=== PATIENT | female | born 1955 | race Caucasian/White ===

== ENCOUNTER 2020-06-06 14:48 | Emergency (ER) | payer OTHER, SELFPAY ==
[2020-06-06 15:01] VITALS: BP 220/80; PULSE 87; RESP 16; TEMP 36.9; O2SAT 98; BMI 26.6
[2020-06-06 15:50] LABS: MANUAL DIFF FLAG NO
[2020-06-06 15:53] LABS: Basophils Absolute Auto 0.1 X10*3/uL (0.0-0.2); Basophils Percent Auto 0.7 % (0-2); Eosinophils Absolute Auto 0.1 X10*3/uL (0.0-0.4); Eosinophils Percent Auto 1.1 % (0-4); Hematocrit 41.3 % (37-47); Hemoglobin 13.8 g/dl (12.0-16.0); Imm Gran Abs Auto 0.02 X10*3/uL (0.00-0.03); Imm Gran Pct Auto 0.2 % (0.0-0.4); Lymphocytes Absolute Auto 1.7 X10*3/uL (1.2-4.9); Lymphocytes Percent Auto 16.8 % (20-40); Mean Corpuscular HGB Conc 33.4 g/dl (31.0-35.0); Mean Corpuscular Hemoglobin 28.5 pg (27.0-33.0); Mean Corpuscular Volume 85.3 fL (80-98); Mean Platelet Volume 10.9 fL (9.4-12.3); Monocytes Absolute Auto 0.9 X10*3/uL (0.1-1.2); Monocytes Percent Auto 9.1 % (2-11); Neutrophils Absolute Auto 7.1 X10*3/uL (2.0-8.3); Neutrophils Percent Auto 72.1 % (45-73); Platelet Count 231 X10*3/uL (160-400); Red Blood Count 4.84 X10*6/uL (4.20-5.50); Red Cell Distribution Width 12.2 % (11.0-16.0); White Blood Count 9.8 X10*3/uL (4.8-10.8)
[2020-06-06 15:58] LABS: Glucose Urine UA NEG (NEG); Leukocyte Esterase Urine TRACE (NEG); Nitrite Urine NEG (NEG); PH 5.5 (5.0-8.0); Specific Gravity - Urine <= 1.005 (1.005-1.025); UACC Culture Trigger YES; Urine Blood NEG (NEG); Urine Ketones NEG (NEG); Urine Protein NEG (NEG-TRACE)
[2020-06-06 16:01] LABS: Appearance Urine CLEAR; Color Urine YELLOW
[2020-06-06 16:09] LABS: Bacteria Urine TRACE /LPF; RBC Urine 0 /HPF (0); Squamous Epithelial Cell Urine 1+ /LPF
--- NOTE | 2020-06-06 16:16 | ED_ITS ---
HPI - Weakness General Chief complaint: Weakness Stated complaint: HEADACHE Time Seen by Provider: 06/06/20 16:16 Source: patient Mode of arrival: ambulatory Limitations: no limitations History of Present Illness HPI Narrative: Patient with history of hypertension and anxiety/depression on Paxil 10 mg daily unable to sleep for last 2 weeks sleeping only for 3 4 hours has long-time in going to bed and waking up early in the morning and during the daytime been feeling foggy unable to focus. Feels depressed. Her son is staying with her for last 2 weeks but patient a lot of stress. Denies any nausea vomiting diarrhea no focal headache unable to focus. Denies any chest pain or shortness of breath abdominal pain feel need some medication to relax and sleep no urinary complaints Related Data Previous Rx's Medication Instructions Recorded lorazepam [Ativan] 1 mg PO BEDTIME PRN #14 tab 06/06/20 Allergies Allergy/AdvReac Type Severity Reaction Status Date / Time Penicillins AdvReac Rash Verified 06/06/20 15:06 Review of Systems Review of Systems: Constitutional : No Weight loss, No Fever, No Chills ENT/Mouth : No sore throat, No Rhinorrhea Eyes: No Eye Pain, No Swelling Cardiovascular : No Chest Pain, no palpitations Respiratory : No Cough, No Sputum, no shortness of breath Gastrointestinal : no Nausea, No Vomiting, No Diarrhea, No abdominal Pain, no black stools Genitourinary : No Dysuria, No Urinary Frequency Musculoskeletal : No joint pain, No Myalgias, No Joint Swelling Skin : No Skin Lesions, No rash Neuro : +Weakness, No Numbness, No Dizziness, No Headache Psych : No Anxiety/Panic, No Depression Heme/Lymph: No Bruising, No Lymphadenopathy Endocrine : No Polyuria, No Polydipsia All other systems reviewed and are negative [facility] Past Medical History Medical History Anxiety Gum disease HTN (hypertension) Mass of breast Social History Social History Advance Directives: No Advance Directives Information Provided: No Physical Exam Vital Signs: Vital Signs: Last Vital Signs Temp 98.4 F 06/06/20 15:01 Pulse 76 06/06/20 16:37 Resp 16 06/06/20 16:37 BP 162/75 H 06/06/20 16:37 Pulse Ox 97 06/06/20 16:37 Body Mass Index 26.6 Appearance: Alert. Oriented X3. No acute distress. Eyes: Pupils equal, round and reactive to light. ENT: Pharynx normal. Neck: Normal inspection. Neck supple. CVS: Normal heart rate and rhythm. Pulses normal. Respiratory: No respiratory distress. Breath sounds normal. Abdomen: Soft and nontender. Bowel sounds are present, no mass palpable, no CVA tenderness Skin: Skin warm and dry. Normal skin color. Normal skin turgor. Extremities: No lower extremity edema. Neuro: Oriented X 3. No motor deficit. No sensory deficit. MDM - Weakness MDM Narrative Medical decision making narrative: Patient with multiple complaints increased anxiety and depression able to sleep for last few weeks labs are stable clinically from the lack of sleep she is not able to focus during daytime pills give her short course of Ativan advised to follow-up with PCP /psychiatrist Lab Data Attestation: I reviewed the patient's lab results. Result diagrams: 06/06/20 15:42 06/06/20 15:42 Labs: Lab Results 06/06/20 06/06/20 06/06/20 Range/Units 15:25 15:42 15:42 WBC 9.8 (4.8-10.8) X10*3/uL RBC 4.84 (4.20-5.50) X10*6/uL Hgb 13.8 (12.0-16.0) g/dl Hct 41.3 (37-47) % MCV 85.3 (80-98) fL MCH 28.5 (27.0-33.0) pg MCHC 33.4 (31.0-35.0) g/dl RDW 12.2 (11.0-16.0) % Plt Count 231 (160-400) X10*3/uL MPV 10.9 (9.4-12.3) fL Immature Gran % (Auto) 0.2 (0.0-0.4) % Neut % (Auto) 72.1 (45-73) % Lymph % (Auto) 16.8 L (20-40) % [place] % (Auto) 9.1 (2-11) % Eos % (Auto) 1.1 (0-4) % Baso % (Auto) 0.7 (0-2) % Lymph # (Auto) 1.7 (1.2-4.9) X10*3/uL [place] # (Auto) 0.9 (0.1-1.2) X10*3/uL Eos # (Auto) 0.1 (0.0-0.4) X10*3/uL Baso # (Auto) 0.1 (0.0-0.2) X10*3/uL Abs Immat Gran (auto) 0.02 (0.00-0.03) X10*3/uL Absolute Neuts (auto) 7.1 (2.0-8.3) X10*3/uL Absolute Nucleated RBC 0.000 (0.0-0.012) X10*3/uL Nucleated RBC % (auto) 0.0 (0.0-0.2) /100WBC Hold Purple Top SEE NOTE Hold Blue Top Sodium (135-145) mmol/L Potassium (3.3-5.1) mmol/L Chloride (96-108) mmol/L Carbon Dioxide (22-29) mmol/L Anion Gap (12-20) BUN (9-16) mg/dL Creatinine (0.5-1.4) mg/dL Estim Creat Clear Calc Estimated GFR Random Glucose (60-115) mg/dL Calcium (8.4-10.2) mg/dL Total Bilirubin (0.0-1.0) mg/dL AST (5-31) U/L ALT (0-31) U/L Alkaline Phosphatase (39-117) U/L Total Protein (6.5-8.0) g/dL Albumin (3.5-5.0) g/dL Urine Color YELLOW Urine Appearance CLEAR Urine pH 5.5 (5.0-8.0) Ur Specific [place] <= 1.005 (1.005-1.025) Urine Protein NEG (NEG-TRACE) MG/DL Urine Glucose (UA) NEG (NEG) MG/DL Urine Ketones NEG (NEG) MG/DL Urine Blood NEG (NEG) Urine Nitrite NEG (NEG) Ur Leukocyte Esterase TRACE H (NEG) Urine RBC 0 (0) /HPF Urine WBC 1-4 (0-4) /HPF Ur Squamous Epith Cells 1+ /LPF Urine Bacteria TRACE /LPF 06/06/20 06/06/20 Range/Units 15:42 15:42 WBC (4.8-10.8) X10*3/uL RBC (4.20-5.50) X10*6/uL Hgb (12.0-16.0) g/dl Hct (37-47) % MCV (80-98) fL MCH (27.0-33.0) pg MCHC (31.0-35.0) g/dl RDW (11.0-16.0) % Plt Count (160-400) X10*3/uL MPV (9.4-12.3) fL Immature Gran % (Auto) (0.0-0.4) % Neut % (Auto) (45-73) % Lymph % (Auto) (20-40) % [place] % (Auto) (2-11) % Eos % (Auto) (0-4) % Baso % (Auto) (0-2) % Lymph # (Auto) (1.2-4.9) X10*3/uL [place] # (Auto) (0.1-1.2) X10*3/uL Eos # (Auto) (0.0-0.4) X10*3/uL Baso # (Auto) (0.0-0.2) X10*3/uL Abs Immat Gran (auto) (0.00-0.03) X10*3/uL Absolute Neuts (auto) (2.0-8.3) X10*3/uL Absolute Nucleated RBC (0.0-0.012) X10*3/uL Nucleated RBC % (auto) (0.0-0.2) /100WBC Hold Purple Top Hold Blue Top SEE NOTE Sodium 142 (135-145) mmol/L Potassium 4.0 (3.3-5.1) mmol/L Chloride 105 (96-108) mmol/L Carbon Dioxide 29 (22-29) mmol/L Anion Gap 12 (12-20) BUN 13 (9-16) mg/dL Creatinine 0.65 (0.5-1.4) mg/dL Estim Creat Clear Calc 94.8 Estimated GFR > 60 Random Glucose 113 (60-115) mg/dL Calcium 9.2 (8.4-10.2) mg/dL Total Bilirubin 0.2 (0.0-1.0) mg/dL AST 16 (5-31) U/L ALT 18 (0-31) U/L Alkaline Phosphatase 79 (39-117) U/L Total Protein 6.9 (6.5-8.0) g/dL Albumin 4.3 (3.5-5.0) g/dL Urine Color Urine Appearance Urine pH (5.0-8.0) Ur Specific [place] (1.005-1.025) Urine Protein (NEG-TRACE) MG/DL Urine Glucose (UA) (NEG) MG/DL Urine Ketones (NEG) MG/DL Urine Blood (NEG) Urine Nitrite (NEG) Ur Leukocyte Esterase (NEG) Urine RBC (0) /HPF Urine WBC (0-4) /HPF Ur Squamous Epith Cells /LPF Urine Bacteria /LPF Discharge Plan Discharge Clinical Impression: Anxiety Patient Disposition: Home, Self-Care Instructions: Anxiety (ED) Additional Instructions: rest at home take ativan as needed and anxiety follow up with pcp for further evaluation Prescriptions: New lorazepam [Ativan] 1 mg tablet 1 mg PO BEDTIME PRN (Reason: anxiety/sleep) Qty: 14 RF: 0
[2020-06-06 16:17] LABS: Alanine Aminotransferase 18 U/L (0-31); Albumin Level 4.3 g/dL (3.5-5.0); Alkaline Phosphatase 79 U/L (39-117); Anion Gap 12 (12-20); Aspartate Amino Transferase 16 U/L (5-31); Bilirubin Total 0.2 mg/dL (0.0-1.0); Blood Urea Nitrogen 13 mg/dL (9-16); Calcium 9.2 mg/dL (8.4-10.2); Carbon Dioxide 29 mmol/L (22-29); Chloride 105 mmol/L (96-108); Creatinine Clr Calc Pharmacy 94.8; Estimated Glomerular Filt Rate > 60; Glucose Random 113 mg/dL (60-115); Sodium 142 mmol/L (135-145); Total Protein 6.9 g/dL (6.5-8.0)
[2020-06-06 16:37] VITALS: BP 162/75; PULSE 76; RESP 16; O2SAT 97
== END 2020-06-06 17:08 | disposition home or self-care (01) ==
PROVIDERS: Emergency Provider Internal Medicine; PCP Internal Medicine
DX: R51.9 Headache, unspecified (principal); I10 Essential (primary) hypertension; F41.1 Generalized anxiety disorder; F43.0 Acute stress reaction; Z79.899 Other long term (current) drug therapy
CPT/HCPCS: 36415; 80053; 81001; 81003; 85025; 87086; 99283

== ENCOUNTER 2020-06-09 14:25 | Emergency (ER) | payer OTHER, SELFPAY ==
--- NOTE | ~2020-06-09 | CT_ITS ---
EXAMINATION: CT HEAD WITHOUT CONTRAST CLINICAL INFORMATION: Headache, frog venous with difficulty concentrating. Lightheadedness. COMPARISON: None TECHNIQUE: Contiguous axial imaging was performed from the skull base to vertex without intravenous administration of contrast. This CT examination was performed using dose optimization techniques as appropriate, variously including the following: *Automated exposure control *Adjustment of mA and/or kV according to patient size (this includes techniques or standardized protocols for targeted exams where dose is matched to indication/reason for exam; i.e. extremities or head) *Use of iterative reconstruction technique DLP: 596 mGy-cm FINDINGS: There is no evidence of acute intracranial hemorrhage or territorial infarction. No abnormal mass effect or midline shift is seen. [place] to white matter differentiation is well preserved. No extra-axial fluid collections are identified. The ventricles are normal in size. There is no abnormal attenuation within the brain parenchyma. The osseous structures and soft tissues are normal. The mastoid air cells and visualized portions of the paranasal sinuses are well aerated. CT/CT head/brain wo con IMPRESSION: No acute intracranial process seen.
--- NOTE | ~2020-06-09 | XR_ITS ---
EXAMINATION: XR CHEST CLINICAL INFORMATION: Hypertension and weakness COMPARISON: None TECHNIQUE: Frontal view of the chest was obtained. FINDINGS: No significant abnormality is noted involving the heart, lungs or mediastinum. Degenerative changes are present in the spine and some calcification is present in the right supraspinatus tendon. XR/XR chest 1V IMPRESSION: No acute intrathoracic disease
[2020-06-09 14:33] VITALS: BP 188/86; PULSE 94; O2SAT 97
[2020-06-09 15:30] VITALS: BP 218/98; PULSE 76; RESP 16; TEMP 36.8; O2SAT 97; BMI 27.4
[2020-06-09 16:17] LABS: Glucose Urine UA NEG (NEG); Leukocyte Esterase Urine 2+ (NEG); Nitrite Urine NEG (NEG); PH 6.5 (5.0-8.0); Specific Gravity - Urine <= 1.005 (1.005-1.025); UACC Culture Trigger YES; Urine Blood NEG (NEG); Urine Ketones NEG (NEG); Urine Protein NEG (NEG-TRACE)
[2020-06-09 16:19] LABS: Appearance Urine CLEAR; Color Urine STRAW
[2020-06-09 16:22] LABS: MANUAL DIFF FLAG NO
[2020-06-09 16:23] LABS: Basophils Absolute Auto 0.1 X10*3/uL (0.0-0.2); Basophils Percent Auto 0.7 % (0-2); Eosinophils Absolute Auto 0.1 X10*3/uL (0.0-0.4); Eosinophils Percent Auto 0.9 % (0-4); Hematocrit 41.7 % (37-47); Hemoglobin 13.9 g/dl (12.0-16.0); Imm Gran Abs Auto 0.04 X10*3/uL (0.00-0.03); Imm Gran Pct Auto 0.4 % (0.0-0.4); Lymphocytes Absolute Auto 1.8 X10*3/uL (1.2-4.9); Lymphocytes Percent Auto 16.5 % (20-40); Mean Corpuscular HGB Conc 33.3 g/dl (31.0-35.0); Mean Corpuscular Hemoglobin 28.5 pg (27.0-33.0); Mean Corpuscular Volume 85.5 fL (80-98); Mean Platelet Volume 10.8 fL (9.4-12.3); Monocytes Absolute Auto 0.9 X10*3/uL (0.1-1.2); Monocytes Percent Auto 8.6 % (2-11); Neutrophils Absolute Auto 7.8 X10*3/uL (2.0-8.3); Neutrophils Percent Auto 72.9 % (45-73); Platelet Count 235 X10*3/uL (160-400); Red Blood Count 4.88 X10*6/uL (4.20-5.50); Red Cell Distribution Width 12.3 % (11.0-16.0); White Blood Count 10.8 X10*3/uL (4.8-10.8)
[2020-06-09 16:43] LABS: Bacteria Urine 1+ /LPF; RBC Urine 0 /HPF (0); Squamous Epithelial Cell Urine 2+ /LPF; WBC Urine 30-49 /HPF (0-4)
[2020-06-09 17:00] LABS: Anion Gap 12 (12-20); Blood Urea Nitrogen 11 mg/dL (9-16); Calcium 9.4 mg/dL (8.4-10.2); Carbon Dioxide 30 mmol/L (22-29); Chloride 103 mmol/L (96-108); Creatinine Clr Calc Pharmacy 88.7; Estimated Glomerular Filt Rate > 60; Glucose Random 97 mg/dL (60-115); Potassium 4.5 mmol/L (3.3-5.1); Sodium 140 mmol/L (135-145)
--- NOTE | 2020-06-09 18:35 | ECG_ITS ---
Test Reason : DIZZINESS Blood Pressure : / mmHG Vent. Rate : 068 BPM Atrial Rate : 068 BPM P-R Int : 144 ms QRS Dur : 088 ms QT Int : 390 ms P-R-T Axes : 067 009 047 degrees QTc Int : 414 ms Normal sinus rhythm Normal ECG When compared with ECG of 29-JAN-2006 13:11, No significant change was found Referred By: Blaire Bahena Electronically Signed By:JIM PACK MD
[2020-06-09 18:58] LABS: Alanine Aminotransferase 19 U/L (0-31); Albumin Level 4.3 g/dL (3.5-5.0); Alkaline Phosphatase 72 U/L (39-117); Aspartate Amino Transferase 19 U/L (5-31); Bilirubin Direct < 0.2 mg/dL (0.0-0.5); Bilirubin Total 0.3 mg/dL (0.0-1.0); Magnesium 2.6 mg/dL (1.6-2.6); Total Protein 7.1 g/dL (6.5-8.0)
[2020-06-09 19:13] LABS: Troponin-I High Sensitivity 3.9 ng/L (<3.5-17.0)
[2020-06-09 20:00] VITALS: BP 160/85; PULSE 68; RESP 16; O2SAT 98
[2020-06-09] MEDS: 0.9 % Sodium Chloride 1,000 ML 999 ML IVCONT (20:15)
--- NOTE | 2020-06-09 20:21 | ED.GENADULT ---
HPI - General Adult General Chief complaint: General Medical Stated complaint: PERALTA,VÍCTOR ARM NUMBNESS SINCE WAKING UP,-STROKE SCALE Time Seen by Provider: 06/09/20 18:23 Source: patient Mode of arrival: ambulatory History of Present Illness HPI narrative: 64-year-old female with a past medical history of anxiety, gum disease, HTN, anxiety/depression on Paxil, presenting to the ED complaining of generalized head pressure/lightheadedness x5 weeks with difficulty concentrating, fatigue, insomnia, generalized paresthesias, intermittent CP/SOB. Was recently seen and treated in our ED for similar symptoms, prescribed Ativan, however reports made headache worse so only took 1 dose. Believes there is something wrong in brain. Denies vision change/loss, nausea/vomiting, abdominal pain, LE edema Onset (ago): week(s) Related Data Previous Rx's Medication Instructions Recorded lorazepam [Ativan] 1 mg PO BEDTIME PRN #14 tab 06/06/20 cefuroxime axetil 250 mg PO BID 7 Days #14 tab 06/09/20 Allergies Allergy/AdvReac Type Severity Reaction Status Date / Time Penicillins AdvReac Rash Verified 06/06/20 15:06 Review of Systems Review of Systems: Constitutional: No Fever, No Chills, No Night Sweats, + Fatigue, + Malaise ENT/Mouth: No Hearing loss, No sore throat, No Rhinorrhea, No Swallowing Difficulty Eyes: No Vision Changes Cardiovascular: +intermittent Chest Pain, +intermittent SOB, No Edema, No Palpitations Respiratory: No Cough, No Dyspnea Gastrointestinal: No Nausea, No Vomiting, No Diarrhea, No Constipation, No Abdominal pain Genitourinary: No Dysuria, No Hematuria, No Flank Pain Musculoskeletal: No joint pain, No Myalgias, No Joint Swelling Skin: No Skin Lesions, No rash Neuro: + Weakness, No Numbness, + Paresthesias, No Loss of Consciousness, + lightheadedness, + Headache Yes all other systems are reviewed and are negative Neurologic: Denies Abnormal speech present [facility] Past Medical History Attestation statement: The following information was validated with the patient. Medical History Anxiety Gum disease HTN (hypertension) Mass of breast Social History Social History Advance Directives: No Advance Directives Information Provided: Yes Physical Exam Vital Signs: Vital Signs: Last Vital Signs Temp 98.3 F 06/09/20 15:30 Pulse 82 06/09/20 20:53 Resp 16 06/09/20 20:00 BP 164/89 H 06/09/20 20:53 Pulse Ox 98 06/09/20 20:00 Body Mass Index 27.4 Const: General: cooperative, healthy appearing, comfortable, no acute distress and anxious Orientation/consciousness: patient oriented x3 Limitations: no limitations HENMT: Head: Yes normal to inspection and Yes atraumatic Ears: hearing grossly normal bilaterally General nose exam: Normal external nose present Face and sinus: Yes normal facial exam Eyes: General: appearance normal, both eyes and all related structures Pupils: Equal, round and reactive pupils present EOM: EOMs intact bilaterally Neck: Neck: Yes normal visual inspection and Yes no meningeal signs Resp: Effort & Inspection: normal respiratory effort Auscultation: clear to auscultation bilaterally, no rales, no rhonchi and no wheezes Cardio: Rate: regular rate Heart sounds: S1 normal heart sound present and S2 normal heart sound present GI: Inspection: Yes normal to inspection Palpation (GI): Soft to palpation, nontender, no guarding and not rigid Skin: Rashes: no rashes Wounds: no wounds Neuro: General: patient oriented x3, gait normal, tone normal, moves all extremities, no meningeal signs, no focal motor deficits and CN's II-XI intact bilaterally Cranial nerves: Yes Equal, round and reactive pupils present Cognition (Neuro): normal cognition Speech: No Abnormal speech present Gait exam (Neuro): Normal gait present Motor exam (neuro): 5/5 motor strength present throughout and Pronator motor function not present Coordination: [id number] test normal Extrem: General: Yes normal to inspection and Yes no pedal edema Course Course Course Narrative: -labs unremarkable including troponin -UA positive > first dose Ceftin given in the ED CT head/brain wo con IMPRESSION: No acute intracranial process seen XR chest 1V IMPRESSION: No acute intrathoracic disease -orthostatic vital signs negative >> results discussed with patient including worrisome signs and symptoms and strict return precautions. Patient was instructed to follow-up with her PCP. She verbalized understanding feel safe for discharge home Medical Decision Making [facility] Narrative Medical decision making narrative: 64-year-old female with a past medical history of anxiety, gum disease, HTN, anxiety/depression on Paxil, presenting to the ED complaining of generalized head pressure/lightheadedness x5 weeks with difficulty concentrating, fatigue, insomnia, generalized paresthesias, intermittent CP/SOB. On exam initially hypertensive, repeat BP improved without intervention, appears anxious, exam nonfocal. Rule out metabolic/infectious etiology vs intracranial process. Unlikely ICH due to duration of symptoms, r/o mass or ACS. Unlikely PE/pneumonia Plan: EKG, labs, UA, CXR, head CT Lab Data Result diagrams: 06/09/20 16:00 06/09/20 16:00 Labs: Lab Results 06/09/20 06/09/20 06/09/20 Range/Units 16:00 16:00 16:00 WBC 10.8 (4.8-10.8) X10*3/uL RBC 4.88 (4.20-5.50) X10*6/uL Hgb 13.9 (12.0-16.0) g/dl Hct 41.7 (37-47) % MCV 85.5 (80-98) fL MCH 28.5 (27.0-33.0) pg MCHC 33.3 (31.0-35.0) g/dl RDW 12.3 (11.0-16.0) % Plt Count 235 (160-400) X10*3/uL MPV 10.8 (9.4-12.3) fL Immature Gran % (Auto) 0.4 (0.0-0.4) % Neut % (Auto) 72.9 (45-73) % Lymph % (Auto) 16.5 L (20-40) % [place] % (Auto) 8.6 (2-11) % Eos % (Auto) 0.9 (0-4) % Baso % (Auto) 0.7 (0-2) % Lymph # (Auto) 1.8 (1.2-4.9) X10*3/uL [place] # (Auto) 0.9 (0.1-1.2) X10*3/uL Eos # (Auto) 0.1 (0.0-0.4) X10*3/uL Baso # (Auto) 0.1 (0.0-0.2) X10*3/uL Abs Immat Gran (auto) 0.04 H (0.00-0.03) X10*3/uL Absolute Neuts (auto) 7.8 (2.0-8.3) X10*3/uL Absolute Nucleated RBC 0.000 (0.0-0.012) X10*3/uL Nucleated RBC % (auto) 0.0 (0.0-0.2) /100WBC Hold Blue Top SEE NOTE Sodium 140 (135-145) mmol/L Potassium 4.5 (3.3-5.1) mmol/L Chloride 103 (96-108) mmol/L Carbon Dioxide 30 H (22-29) mmol/L Anion Gap 12 (12-20) BUN 11 (9-16) mg/dL Creatinine 0.68 (0.5-1.4) mg/dL Estim Creat Clear Calc 88.7 Estimated GFR > 60 Random Glucose 97 (60-115) mg/dL Calcium 9.4 (8.4-10.2) mg/dL Magnesium 2.6 (1.6-2.6) mg/dL Total Bilirubin 0.3 (0.0-1.0) mg/dL Direct Bilirubin < 0.2 (0.0-0.5) mg/dL AST 19 (5-31) U/L ALT 19 (0-31) U/L Alkaline Phosphatase 72 (39-117) U/L Troponin I High Sens (<3.5-17.0) ng/L Total Protein 7.1 (6.5-8.0) g/dL Albumin 4.3 (3.5-5.0) g/dL Urine Color Urine Appearance Urine pH (5.0-8.0) Ur Specific [place] (1.005-1.025) Urine Protein (NEG-TRACE) MG/DL Urine Glucose (UA) (NEG) MG/DL Urine Ketones (NEG) MG/DL Urine Blood (NEG) Urine Nitrite (NEG) Ur Leukocyte Esterase (NEG) Urine RBC (0) /HPF Urine WBC (0-4) /HPF Ur Squamous Epith Cells /LPF Urine Bacteria /LPF 06/09/20 06/09/20 Range/Units 16:00 16:02 WBC (4.8-10.8) X10*3/uL RBC (4.20-5.50) X10*6/uL Hgb (12.0-16.0) g/dl Hct (37-47) % MCV (80-98) fL MCH (27.0-33.0) pg MCHC (31.0-35.0) g/dl RDW (11.0-16.0) % Plt Count (160-400) X10*3/uL MPV (9.4-12.3) fL Immature Gran % (Auto) (0.0-0.4) % Neut % (Auto) (45-73) % Lymph % (Auto) (20-40) % [place] % (Auto) (2-11) % Eos % (Auto) (0-4) % Baso % (Auto) (0-2) % Lymph # (Auto) (1.2-4.9) X10*3/uL [place] # (Auto) (0.1-1.2) X10*3/uL Eos # (Auto) (0.0-0.4) X10*3/uL Baso # (Auto) (0.0-0.2) X10*3/uL Abs Immat Gran (auto) (0.00-0.03) X10*3/uL Absolute Neuts (auto) (2.0-8.3) X10*3/uL Absolute Nucleated RBC (0.0-0.012) X10*3/uL Nucleated RBC % (auto) (0.0-0.2) /100WBC Hold Blue Top Sodium (135-145) mmol/L Potassium (3.3-5.1) mmol/L Chloride (96-108) mmol/L Carbon Dioxide (22-29) mmol/L Anion Gap (12-20) BUN (9-16) mg/dL Creatinine (0.5-1.4) mg/dL Estim Creat Clear Calc Estimated GFR Random Glucose (60-115) mg/dL Calcium (8.4-10.2) mg/dL Magnesium (1.6-2.6) mg/dL Total Bilirubin (0.0-1.0) mg/dL Direct Bilirubin (0.0-0.5) mg/dL AST (5-31) U/L ALT (0-31) U/L Alkaline Phosphatase (39-117) U/L Troponin I High Sens 3.9 (<3.5-17.0) ng/L Total Protein (6.5-8.0) g/dL Albumin (3.5-5.0) g/dL Urine Color STRAW Urine Appearance CLEAR Urine pH 6.5 (5.0-8.0) Ur Specific [place] <= 1.005 (1.005-1.025) Urine Protein NEG (NEG-TRACE) MG/DL Urine Glucose (UA) NEG (NEG) MG/DL Urine Ketones NEG (NEG) MG/DL Urine Blood NEG (NEG) Urine Nitrite NEG (NEG) Ur Leukocyte Esterase 2+ H (NEG) Urine RBC 0 (0) /HPF Urine WBC 30-49 H (0-4) /HPF Ur Squamous Epith Cells 2+ /LPF Urine Bacteria 1+ /LPF Discharge Plan Discharge Clinical Impression: UTI (urinary tract infection), Headache, Weakness Instructions: Urinary Tract Infection in Older Adults (ED) Additional Instructions: Your blood work and imaging studies were reassuring today in the ED Your urine showed markers of infection, Ceftin is antibiotic, take as prescribed It is important that he follow up with her primary care doctor If her symptoms persist or worsen, become unbearable, you have constant worsen chest pain/shortness of breath, or weakness return to the ED Make sure staying hydrated at home Prescriptions: New cefuroxime axetil 250 mg tablet 250 mg PO BID 7 Days Qty: 14 RF: 0 No Action lorazepam [Ativan] 1 mg tablet 1 mg PO BEDTIME PRN (Reason: anxiety/sleep) Qty: 14 RF: 0 Referrals: Jessica Crawford MD [Primary Care Provider] - 2 days
[2020-06-09 20:53] VITALS: BP 151/79; BP 157/80; BP 164/89; PULSE 72; PULSE 74; PULSE 82
[2020-06-09 22:00] VITALS: RESP 16; O2SAT 99
== END 2020-06-09 22:17 | disposition home or self-care (01) ==
PROVIDERS: Physician Assistant; Emergency Provider Emergency Medicine; PCP Internal Medicine
DX: N39.0 Urinary tract infection, site not specified (principal); R51.9 Headache, unspecified; R53.1 Weakness; Z79.899 Other long term (current) drug therapy
CPT/HCPCS: 36415; 70450; 71045; 80048; 80076; 81001; 81003; 83735; 84484; 85025; 87086; 93005; 96360; 99284

== ENCOUNTER 2020-06-23 02:02 | Emergency (ER) | payer OTHER, SELFPAY ==
[2020-06-23] VITALS (11 sets, daily range): BP systolic 160–210; BP diastolic 72–93; PULSE 69–86; RESP 16–20; TEMP 36.4–37.1; O2SAT 96–99; BMI 26.9
--- NOTE | 2020-06-23 04:04 | PC.NURSE ---
Per Dr Field, pt reports SI without plan. Pt care plan is for labs for medical clearance then psych. lead burner made aware
[2020-06-23 04:35] LABS: MANUAL DIFF FLAG NO
--- NOTE | 2020-06-23 04:35 | PC.NURSE ---
Pt ambulated to bathroom with standby assist with slow, shuffling gait. Pt provided urine sample, sent to lab for processing. Pt labs also sent. Pt changed into behavioral health appropriate clothing. Tech at bedside for constant observation.
[2020-06-23 04:36] LABS: Basophils Absolute Auto 0.1 X10*3/uL (0.0-0.2); Basophils Percent Auto 0.7 % (0-2); Eosinophils Absolute Auto 0.1 X10*3/uL (0.0-0.4); Eosinophils Percent Auto 0.6 % (0-4); Hematocrit 44.6 % (37-47); Hemoglobin 14.9 g/dl (12.0-16.0); Imm Gran Abs Auto 0.03 X10*3/uL (0.00-0.03); Imm Gran Pct Auto 0.3 % (0.0-0.4); Lymphocytes Absolute Auto 1.7 X10*3/uL (1.2-4.9); Lymphocytes Percent Auto 15.5 % (20-40); Mean Corpuscular HGB Conc 33.4 g/dl (31.0-35.0); Mean Corpuscular Hemoglobin 28.7 pg (27.0-33.0); Mean Corpuscular Volume 85.8 fL (80-98); Mean Platelet Volume 10.7 fL (9.4-12.3); Monocytes Absolute Auto 0.8 X10*3/uL (0.1-1.2); Monocytes Percent Auto 6.9 % (2-11); Neutrophils Absolute Auto 8.6 X10*3/uL (2.0-8.3); Platelet Count 245 X10*3/uL (160-400); Red Cell Distribution Width 12.1 % (11.0-16.0); White Blood Count 11.3 X10*3/uL (4.8-10.8)
[2020-06-23 04:39] LABS: Glucose Urine UA NEG (NEG); Leukocyte Esterase Urine TRACE (NEG); Nitrite Urine NEG (NEG); PH 7.5 (5.0-8.0); UACC Culture Trigger YES; Urine Blood NEG (NEG); Urine Ketones NEG (NEG); Urine Protein NEG (NEG-TRACE)
[2020-06-23 04:40] LABS: Appearance Urine CLEAR; Color Urine YELLOW
[2020-06-23 04:50] LABS: Amorphous Sediment Urine 2+ /LPF; Bacteria Urine 1+ /LPF; Renal Epithelial Cells Urine 1+ /LPF; Squamous Epithelial Cell Urine 1+ /LPF
--- NOTE | 2020-06-23 05:02 | ED_ITS ---
HPI - General Adult General Chief complaint: General Medical Stated complaint: HIGH BLOOD PRESSURE Time Seen by Provider: 06/23/20 03:29 Source: patient Mode of arrival: ambulatory Limitations: no limitations History of Present Illness HPI narrative: 65-year-old female who presents emergency department for evaluation of depression, suicidal ideation, hypertension and headache. The patient states that her depression has been worse since her cat approximately 8 weeks prior to evaluation. She states that since her cat's , she has had thoughts that have come back from years ago. She states that she has been feeling very weak and sick. She is concerned that something is going to happen to her. She has been evaluated by her PCP who increased her Paxil from 10 mg daily to 20 mg a day. Patient states that she took this increased dose for only 1 day under gave her severe headache and she self redu lisa her dose back to 10 mg. She states that her doctor did convince her to take 15 mg once a day for the past 6 days. She states that since increasing this dose she has had headaches which she describes as a pressure-like sensation in her head she states that her depression is also gotten worse. She states that the headache is a pressure-like sensation which is intermittent, located the top of her head and is moderate to severe in intensity. The patient states this evening she felt unwell. She states that she was having suicidal thoughts of taking an overdose of sleeping pills. She also states that she wanted a ?the Lord to take her away . The patient states she has been compliant with her antihypertensive medication amlodipine 2.5 mg daily. In reviewing her record, she was seen here on 06/09/2020 with a similar headache and had a negative CT scan at that time. She was also seen in the emergency department for anxiety on 06/06/2020. Related Data Home Medications Medication Instructions Recorded Confirmed amlodipine 2.5 mg PO DAILY 06/23/20 06/23/20 aspirin [Aspirin Child] 81 mg PO DAILY 06/23/20 06/23/20 cholecalciferol (vitamin D3) 10 mcg PO DAILY 06/23/20 06/23/20 [Vitamin D3] paroxetine HCl [Paxil] 10 mg PO DAILY 06/23/20 06/23/20 Previous Rx's Medication Instructions Recorded lorazepam [Ativan] 1 mg PO BEDTIME PRN #14 tab 06/06/20 Allergies Allergy/AdvReac Type Severity Reaction Status Date / Time Penicillins AdvReac Rash Verified 06/23/20 03:59 Review of Systems Review of Systems: Yes all other systems are reviewed and are negative [facility] Past Medical History [facility] Narrative: The patient denies tobacco, alcohol and drug use. Source: unable to obtain Medical History (Updated 06/23/20 @ 02:06 by Vesta Altman) Anxiety Depression Gum disease HTN (hypertension) Mass of breast Social History Social History Alcohol intake: never Smoking Status: Never smoker Use of substances other than those prescribed or required for medical reasons: No Advance Directives: No Physical Exam Vital Signs: Vital Signs: Last Vital Signs Temp 98.7 F 06/23/20 02:03 Pulse 70 06/23/20 04:04 Resp 18 06/23/20 04:04 BP 180/80 H 06/23/20 04:04 Pulse Ox 99 06/23/20 04:04 Body Mass Index 26.9 Const: General: cooperative, no acute distress, alert and awake Orientation/consciousness: oriented to person and oriented to place Limitations: no limitations HENMT: Head: Yes normal to inspection, Yes normocephalic and Yes atraumatic Ears: external ears normal General nose exam: Normal external nose present Face and sinus: Yes normal facial exam Mouth: Normal oral and palatal mucosa present Throat: Yes posterior oropharynx normal Eyes: General: appearance normal, both eyes and all related structures Periorbital: periorbital findings normal Eyelids: Yes eyelids normal Conjunctivae: conjunctivae normal Sclerae: sclerae normal Corneas: corneas normal Pupils: Equal, round and reactive pupils present Direct Ophthalmoscopy: normal light reflex Neck: Neck: Yes normal visual inspection and Yes supple Lymphatic: no lymphadenopathy noted Chest: Chest palpation & inspection: normal inspection of the chest and normal palpation of entire chest wall Resp: Effort & Inspection: normal respiratory effort, abnormal respiratory pattern, no audible wheezes and no respiratory distress Auscultation: clear to auscultation bilaterally, no crackles, no rales, no rhonchi and no wheezes Cardio: Rate: regular rate Rhythm: regular rhythm Heart sounds: S1 normal heart sound present, S2 normal heart sound present and Murmur heart sound present GI: Inspection: No distended Palpation (GI): Soft to palpation, nontender, no guarding and No hepatosplenomegaly present Auscultation: normal bowel sounds : General: Yes no CVA tenderness Back/Spine/Pelvis: Back: no CVA tenderness Cervical Spine: normal cervical lordosis Thoracic/Lumbar Spine: thoracic and lumbar spine normal to inspection Skin: General skin exam: no rashes or lesions noted Lesions: no lesions Rashes: no rashes Wounds: no wounds Neuro: General: oriented to person and oriented to place Cranial nerves: Y es CN's II-XII intact bilaterally and Yes Equal, round and reactive pupils present Cognition (Neuro): normal cognition Motor exam (neuro): 5/5 motor strength present throughout Extrem: General: Yes normal to inspection, Yes full ROM, Yes no pedal edema and Yes no calf tenderness Psych: Appearance: grossly normal Mental Status: mental status grossly normal Speech and movement: Clear speech present Affect: Sad affect presen t Attitude: cooperative Thought process: Normal thought process present Thought content: Suicidality present, no homicidality and no delusions Course Course Course Narrative: 65-year-old female who presents emergency department for evaluation of headache, hypertension, depression and suicidal ideation. Patient's physical examination did reveal a slightly elevated high blood pressure otherwise her exam was unremarkable. The patient states that she has been having suicidal ideation with a plan overdosing on sleeping pills. I did order laboratory evaluation. She had a CT scan of the brain earlier this month for her headaches and I do not think that this needs to be repeated at this time. Laboratory evaluation revealed [place] [id number], unremarkable urinalysis and negative tox screen. Patient is medically cleared for crisis evaluation. Medical Decision Making Lab Data Result diagrams: 06/23/20 04:26 06/23/20 04:26 Labs: Lab Results 06/23/20 06/23/20 Range/Units 04:26 04:26 WBC 11.3 H (4.8-10.8) X10*3/uL RBC 5.20 (4.20-5.50) X10*6/uL Hgb 14.9 (12.0-16.0) g/dl Hct 44.6 (37-47) % MCV 85.8 (80-98) fL MCH 28.7 (27.0-33.0) pg MCHC 33.4 (31.0-35.0) g/dl RDW 12.1 (11.0-16.0) % Plt Count 245 (160-400) X10*3/uL MPV 10.7 (9.4-12.3) fL Immature Gran % (Auto) 0.3 (0.0-0.4) % Neut % (Auto) 76.0 H (45-73) % Lymph % (Auto) 15.5 L (20-40) % [place] % (Auto) 6.9 (2-11) % Eos % (Auto) 0.6 (0-4) % Baso % (Auto) 0.7 (0-2) % Lymph # (Auto) 1.7 (1.2-4.9) X10*3/uL [place] # (Auto) 0.8 (0.1-1.2) X10*3/uL Eos # (Auto) 0.1 (0.0-0.4) X10*3/uL Baso # (Auto) 0.1 (0.0-0.2) X10*3/uL Abs Immat Gran (auto) 0.03 (0.00-0.03) X10*3/uL Absolute Neuts (auto) 8.6 H (2.0-8.3) X10*3/uL Absolute Nucleated RBC 0.000 (0.0-0.012) X10*3/uL Nucleated RBC % (auto) 0.0 (0.0-0.2) /100WBC Urine Color YELLOW Urine Appearance CLEAR Urine pH 7.5 (5.0-8.0) Ur Specific [place] 1.010 (1.005-1.025) Urine Protein NEG (NEG-TRACE) MG/DL Urine Glucose (UA) NEG (NEG) MG/DL Urine Ketones NEG (NEG) MG/DL Urine Blood NEG (NEG) Urine Nitrite NEG (NEG) Ur Leukocyte Esterase TRACE H (NEG) Urine RBC 1-4 (0) /HPF Urine WBC 1-4 (0-4) /HPF Ur Squamous Epith Cells 1+ /LPF Ur Renal Epithelial Cell 1+ /LPF Amorphous Sediment 2+ /LPF Urine Bacteria 1+ /LPF Discharge Plan Discharge Prescriptions: No Action lorazepam [Ativan] 1 mg tablet 1 mg PO BEDTIME PRN (Reason: anxiety/sleep) Qty: 14 RF: 0 paroxetine HCl [Paxil] 10 mg Tablet 10 mg PO DAILY RF: 0 amlodipine 2.5 mg Tablet 2.5 mg PO DAILY RF: 0 aspirin [Aspirin Child] 81 mg Tablet,Chewable 81 mg PO DAILY RF: 0 cholecalciferol (vitamin D3) [Vitamin D3] 10 mcg (400 unit) Tablet 10 mcg PO DAILY RF: 0
[2020-06-23 05:08] LABS: Alanine Aminotransferase 20 U/L (0-31); Albumin Level 4.4 g/dL (3.5-5.0); Alkaline Phosphatase 79 U/L (39-117); Anion Gap 12 (12-20); Aspartate Amino Transferase 15 U/L (5-31); Bilirubin Total 0.7 mg/dL (0.0-1.0); Blood Urea Nitrogen 8 mg/dL (9-16); Calcium 9.6 mg/dL (8.4-10.2); Carbon Dioxide 31 mmol/L (22-29); Chloride 100 mmol/L (96-108); Creatinine Clr Calc Pharmacy 85.6; Estimated Glomerular Filt Rate > 60; Glucose Random 109 mg/dL (60-115); Potassium 4.2 mmol/L (3.3-5.1); Sodium 139 mmol/L (135-145); Total Protein 7.3 g/dL (6.5-8.0)
[2020-06-23 05:09] LABS: Amphetamine Screen Urine Not Detected (Not Detect); Barbiturates, Urine Not Detected (Not Detect); Benzodiazepines Screen Urine Not Detected (Not Detect); Cannabinoid Screen Urine Not Detected (Not Detect); Cocaine Screen Urine Not Detected (Not Detect); Opiate Screen Urine Not Detected (Not Detect); Phencyclidine Screen Urine Not Detected (Not Detect)
--- NOTE | 2020-06-23 05:27 | PC.NURSE ---
This RN faxed ED transfer summary and cover letter to [facility].
--- NOTE | 2020-06-23 06:58 | PC.NURSE ---
Report given to ROSALVA Sharp and care transferred at this time
--- NOTE | 2020-06-23 07:24 | ED_ITS ---
HPI - General Adult General Chief complaint: General Medical Stated complaint: HIGH BLOOD PRESSURE Time Seen by Provider: 06/23/20 03:29 History of Present Illness HPI narrative: 65-year-old female who presents emergency department for evaluation of headache, elevated blood pressure and Related Data Home Medications Medication Instructions Recorded Confirmed amlodipine 2.5 mg PO DAILY 06/23/20 06/23/20 aspirin [Aspirin Child] 81 mg PO DAILY 06/23/20 06/23/20 cholecalciferol (vitamin D3) 10 mcg PO DAILY 06/23/20 06/23/20 [Vitamin D3] paroxetine HCl [Paxil] 10 mg PO DAILY 06/23/20 06/23/20 Previous Rx's Medication Instructions Recorded lorazepam [Ativan] 1 mg PO BEDTIME PRN #14 tab 06/06/20 Allergies Allergy/AdvReac Type Severity Reaction Status Date / Time Penicillins AdvReac Rash Verified 06/23/20 03:59 [facility] Past Medical History Medical History (Updated 06/23/20 @ 02:06 by Vesta Altman) Anxiety Depression Gum disease HTN (hypertension) Mass of breast Social History Social History Alcohol intake: never Smoking Status: Never smoker Use of substances other than those prescribed or required for medical reasons: No Advance Directives: No Physical Exam Vital Signs: Vital Signs: Last Vital Signs Temp 98.7 F 06/23/20 02:03 Pulse 79 06/23/20 06:29 Resp 18 06/23/20 06:29 BP 160/75 H 06/23/20 06:29 Pulse Ox 97 06/23/20 06:29 Body Mass Index 26.9 Medical Decision Making Lab Data Result diagrams: 06/23/20 04:26 06/23/20 04:26 Labs: Lab Results 06/23/20 06/23/20 06/23/20 Range/Units 04:26 04:26 04:26 WBC 11.3 H (4.8-10.8) X10*3/uL RBC 5.20 (4.20-5.50) X10*6/uL Hgb 14.9 (12.0-16.0) g/dl Hct 44.6 (37-47) % MCV 85.8 (80-98) fL MCH 28.7 (27.0-33.0) pg MCHC 33.4 (31.0-35.0) g/dl RDW 12.1 (11.0-16.0) % Plt Count 245 (160-400) X10*3/uL MPV 10.7 (9.4-12.3) fL Immature Gran % (Auto) 0.3 (0.0-0.4) % Neut % (Auto) 76.0 H (45-73) % Lymph % (Auto) 15.5 L (20-40) % [place] % (Auto) 6.9 (2-11) % Eos % (Auto) 0.6 (0-4) % Baso % (Auto) 0.7 (0-2) % Lymph # (Auto) 1.7 (1.2-4.9) X10*3/uL [place] # (Auto) 0.8 (0.1-1.2) X10*3/uL Eos # (Auto) 0.1 (0.0-0.4) X10*3/uL Baso # (Auto) 0.1 (0.0-0.2) X10*3/uL Abs Immat Gran (auto) 0.03 (0.00-0.03) X10*3/uL Absolute Neuts (auto) 8.6 H (2.0-8.3) X10*3/uL Absolute Nucleated RBC 0.000 (0.0-0.012) X10*3/uL Nucleated RBC % (auto) 0.0 (0.0-0.2) /100WBC Sodium 139 (135-145) mmol/L Potassium 4.2 (3.3-5.1) mmol/L Chloride 100 (96-108) mmol/L Carbon Dioxide 31 H (22-29) mmol/L Anion Gap 12 (12-20) BUN 8 L (9-16) mg/dL Creatinine 0.69 (0.5-1.4) mg/dL Estim Creat Clear Calc 85.6 Estimated GFR > 60 Random Glucose 109 (60-115) mg/dL Calcium 9.6 (8.4-10.2) mg/dL Total Bilirubin 0.7 (0.0-1.0) mg/dL AST 15 (5-31) U/L ALT 20 (0-31) U/L Alkaline Phosphatase 79 (39-117) U/L Total Protein 7.3 (6.5-8.0) g/dL Albumin 4.4 (3.5-5.0) g/dL Urine Color YELLOW Urine Appearance CLEAR Urine pH 7.5 (5.0-8.0) Ur Specific [place] 1.010 (1.005-1.025) Urine Protein NEG (NEG-TRACE) MG/DL Urine Glucose (UA) NEG (NEG) MG/DL Urine Ketones NEG (NEG) MG/DL Urine Blood NEG (NEG) Urine Nitrite NEG (NEG) Ur Leukocyte Esterase TRACE H (NEG) Urine RBC 1-4 (0) /HPF Urine WBC 1-4 (0-4) /HPF Ur Squamous Epith Cells 1+ /LPF Ur Renal Epithelial Cell 1+ /LPF Amorphous Sediment 2+ /LPF Urine Bacteria 1+ /LPF Urine Opiates Screen (Not Detect) Ur Barbiturates Screen (Not Detect) Ur Phencyclidine Scrn (Not Detect) Ur Amphetamines Screen (Not Detect) U Benzodiazepines Scrn (Not Detect) Urine Cocaine Screen (Not Detect) U Marijuana (THC) Screen (Not Detect) 06/23/20 Range/Units 04:26 WBC (4.8-10.8) X10*3/uL RBC (4.20-5.50) X10*6/uL Hgb (12.0-16.0) g/dl Hct (37-47) % MCV (80-98) fL MCH (27.0-33.0) pg MCHC (31.0-35.0) g/dl RDW (11.0-16.0) % Plt Count (160-400) X10*3/uL MPV (9.4-12.3) fL Immature Gran % (Auto) (0.0-0.4) % Neut % (Auto) (45-73) % Lymph % (Auto) (20-40) % [place] % (Auto) (2-11) % Eos % (Auto) (0-4) % Baso % (Auto) (0-2) % Lymph # (Auto) (1.2-4.9) X10*3/uL [place] # (Auto) (0.1-1.2) X10*3/uL Eos # (Auto) (0.0-0.4) X10*3/uL Baso # (Auto) (0.0-0.2) X10*3/uL Abs Immat Gran (auto) (0.00-0.03) X10*3/uL Absolute Neuts (auto) (2.0-8.3) X10*3/uL Absolute Nucleated RBC (0.0-0.012) X10*3/uL Nucleated RBC % (auto) (0.0-0.2) /100WBC Sodium (135-145) mmol/L Potassium (3.3-5.1) mmol/L Chloride (96-108) mmol/L Carbon Dioxide (22-29) mmol/L Anion Gap (12-20) BUN (9-16) mg/dL Creatinine (0.5-1.4) mg/dL Estim Creat Clear Calc Estimated GFR Random Glucose (60-115) mg/dL Calcium (8.4-10.2) mg/dL Total Bilirubin (0.0-1.0) mg/dL AST (5-31) U/L ALT (0-31) U/L Alkaline Phosphatase (39-117) U/L Total Protein (6.5-8.0) g/dL Albumin (3.5-5.0) g/dL Urine Color Urine Appearance Urine pH (5.0-8.0) Ur Specific [place] (1.005-1.025) Urine Protein (NEG-TRACE) MG/DL Urine Glucose (UA) (NEG) MG/DL Urine Ketones (NEG) MG/DL Urine Blood (NEG) Urine Nitrite (NEG) Ur Leukocyte Esterase (NEG) Urine RBC (0) /HPF Urine WBC (0-4) /HPF Ur Squamous Epith Cells /LPF Ur Renal Epithelial Cell /LPF Amorphous Sediment /LPF Urine Bacteria /LPF Urine Opiates Screen Not Detected (Not Detect) Ur Barbiturates Screen Not Detected (Not Detect) Ur Phencyclidine Scrn Not Detected (Not Detect) Ur Amphetamines Screen Not Detected (Not Detect) U Benzodiazepines Scrn Not Detected (Not Detect) Urine Cocaine Screen Not Detected (Not Detect) U Marijuana (THC) Screen Not Detected (Not Detect) Discharge Plan Discharge Prescriptions: No Action lorazepam [Ativan] 1 mg tablet 1 mg PO BEDTIME PRN (Reason: anxiety/sleep) Qty: 14 RF: 0 paroxetine HCl [Paxil] 10 mg Tablet 10 mg PO DAILY RF: 0 amlodipine 2.5 mg Tablet 2.5 mg PO DAILY RF: 0 aspirin [Aspirin Child] 81 mg Tablet,Chewable 81 mg PO DAILY RF: 0 cholecalciferol (vitamin D3) [Vitamin D3] 10 mcg (400 unit) Tablet 10 mcg PO DAILY RF: 0
--- NOTE | 2020-06-23 07:30 | PC.NURSE ---
report taken from Thalia Cooney. patient resting on stretcher, eating breakfast. calm and cooperative. patient reports she has had increased stress at home recently. feels depressed and anxious, thoughts of SI. vague plan, reports she is mormonism and hoped the lord would just take her . also stated she had thoughts of taking sleeping medications. waiting for eval by [facility] today. will be moved to [facility] when room available. sitter at bedside with patient.
[2020-06-23] MEDS: amLODIPine Besylate 2.5 MG TABLET PO (10:36)
[2020-06-23] MEDS: Aspirin 81 MG TAB.CHEW PO (10:37)
[2020-06-23] MEDS: Cholecalciferol (Vitamin D3) 10 MCG TABLET PO (10:37)
[2020-06-23] MEDS: PARoxetine HCL 10 MG TABLET PO (10:51)
--- NOTE | 2020-06-23 16:12 | PC.NURSE ---
Report recieved. PT ambulated to pod with steady gait. PT reports not feeling well due to depression and anxiety for the past 8 weeks, reports poor sleep. PT reports feeling overwhelmed. Pt waiting to be seen by N.
--- NOTE | 2020-06-23 19:14 | PC.NURSE ---
Patient compliant with covid swab, pending result, per care team [facility] is coming to see the patient possibly within an hour, patient made aware, patient calm and quiet, no distress reported at this time, will continue to monitor
--- NOTE | 2020-06-23 19:43 | PC.NURSE ---
[facility] at bedside
[2020-06-23 20:01] LABS: COVID-19 Test Negative (Negative)
--- NOTE | 2020-06-23 22:28 | PC.NURSE ---
Patient just got assessed by [facility] clinician, disposition d/c to [facility] in [place], bed secured, ride not available at this time, patient's neighbour Cordelia ([phone]) will give ride to patient to the [facility] tomorrow morning, patient family and provider aware, will continue to monitor.
--- NOTE | 2020-06-23 23:51 | PC.NURSE ---
Patient spoke with her son on phone, offered Melatonin as asked by the patient earlier but she refused by saying it is late instead she would prefer to have warm milk, offered as requested and accepted, patient currently in bed resting quietly, no distress reported, will continue to monitor.
[2020-06-24 06:33] VITALS: BP 169/93; PULSE 84; RESP 18; TEMP 35.9; O2SAT 96
[2020-06-24] MEDS: Aspirin 81 MG TAB.CHEW PO (09:09)
[2020-06-24] MEDS: amLODIPine Besylate 2.5 MG TABLET PO (09:09)
[2020-06-24] MEDS: PARoxetine HCL 10 MG TABLET PO (09:09)
[2020-06-24 09:12] VITALS: BP 169/92; PULSE 98; RESP 19; TEMP 37.8; O2SAT 99
== END 2020-06-24 10:29 ==
PROVIDERS: Internal Medicine; Emergency Provider Emergency Medicine Emergency Medical Services; PCP Internal Medicine
DX: F33.1 Major depressive disorder, recurrent, moderate (principal); R45.851 Suicidal ideations; R51.9 Headache, unspecified; I10 Essential (primary) hypertension; Z79.899 Other long term (current) drug therapy
CPT/HCPCS: 36415; 80053; 80307; 81001; 81003; 85025; 87086; 87635; 99285

== ENCOUNTER 2020-07-05 07:22 | Inpatient (IN) | payer OTHER, SELFPAY ==
[2020-07-05] VITALS (7 sets, daily range): BP systolic 156–170; BP diastolic 76–88; PULSE 77–97; RESP 15–18; TEMP 36.8; O2SAT 95–99; BMI 25.8
--- NOTE | 2020-07-05 08:50 | PC.NURSE ---
si thoughts, stated she had an idea of jumping in the river
--- NOTE | 2020-07-05 09:16 | ECG_ITS ---
Test Reason : ANXIETY Blood Pressure : / mmHG Vent. Rate : 078 BPM Atrial Rate : 078 BPM P-R Int : 140 ms QRS Dur : 086 ms QT Int : 384 ms P-R-T Axes : 076 005 056 degrees QTc Int : 437 ms Normal sinus rhythm Normal ECG When compared with ECG of 09-JUN-2020 19:11, No significant change was found Referred By: Blaire Bahena Electronically Signed By:ERIKA ARMIJO
--- NOTE | 2020-07-05 09:26 | ED.GENADULT ---
HPI - General Adult General Chief complaint: General Medical <KASI Holm - Last Filed: 07/05/20 17:14> Stated complaint: med reaction? <KASI Holm - Last Filed: 07/05/20 17:14> Time Seen by Provider: 07/05/20 09:00 <KASI Holm Last Filed: 07/05/20 17:14> Source: patient <KASI Holm - Last Filed: 07/05/20 17:14> Mode of arrival: ambulatory <KASI Holm - Last Filed: 07/05/20 17:14> History of Present Illness HPI narrative: 65-year-old female with a past medical history of anxiety, depression, hypertension, presenting to ED reporting she is feeling unwell with increased depression/fatigue/decreased desire to do anything. Admits to suicidal ideations with plan to overdose on sleeping pills or jump into the river and drown. Patient was recently seen at our facility and discharged to respite where her medications were adjusted, Paxil was changed to Prozac, reports does not believe new medication is helping her, believes it is doing nothing. States she needs help, does not feel safe to go home, is fearful of what she may do. Reports generalized myalgias, generalized headache, increased anxiety, intermittent dizziness/lightheadedness. Denies CP/SOB, abdominal pain, nausea/vomiting, fever, chills <KASI Holm Last Filed: 07/05/20 17:14> Related Data Home medications: Home Medications Medication Instructions Recorded Confirmed amlodipine 2.5 mg PO DAILY@1700 06/23/20 07/05/20 aspirin [Aspirin Child] 81 mg PO DAILY 06/23/20 07/05/20 cholecalciferol (vitamin D3) 10 mcg PO BID 06/23/20 07/05/20 [Vitamin D3] fluoxetine 10 mg PO DAILY 07/05/20 07/05/20 trazodone 25 mg PO BEDTIME 07/05/20 07/05/20 <KASI Holm Last Filed: 07/05/20 17:14> Allergies/adverse reactions: Allergies Allergy/AdvReac Type Severity Reaction Status Date / Time Penicillins AdvReac Rash Verified 06/23/20 03:59 <KASI Holm - Last Filed: 07/05/20 17:14> Review of Systems Review of Systems: Constitutional: No Weight loss, No Fever, No Chills,+ Fatigue, + Malaise ENT/Mouth: No Hearing loss, No Ear Pain, No Rhinorrhea Cardiovascular: No Chest Pain, No SOB Respiratory: No Cough, No Dyspnea Gastrointestinal: No Nausea, No Vomiting, No Diarrhea, No Constipation, No Abdominal pain Genitourinary: No Dysuria, No Urinary Frequency, No Hematuria, No Flank Pain Musculoskeletal: No joint pain, No Myalgias, No Joint Swelling Skin: No Skin Lesions, No rash Neuro: + Weakness, No Numbness, No Paresthesias, No Loss of Consciousness, +Lightheadedness/ Dizziness, + Headache Psych: +Anxiety, + Depression, + SI, HI/AH/VH, No Social Issues <KASI Holm - Last Filed: 07/05/20 17:14> Yes all other systems are reviewed and are negative <KASI Holm - Last Filed: 07/05/20 17:14> Neurologic: Denies Abnormal speech present and Denies Sensory deficit (Neuro) <KASI Holm - Last Filed: 07/05/20 17:14> [facility] Past Medical History Attestation statement: The following information was validated with the patient. <KASI Holm - Last Filed: 07/05/20 17:14> Medical History: Medical History (Updated 07/05/20 @ 12:07 by Karine Eagle APRN) Anxiety Depression Generalized anxiety disorder Gum disease HTN (hypertension) Mass of breast Recurrent major depression-severe <KASI Holm - Last Filed: 07/05/20 17:14> Social History Social History: Social History Alcohol intake: never Smoking Status: Former smoker Use of substances other than those prescribed or required for medical reasons: No Advance Directives: No Advance Directives Information Provided: No <KASI Holm - Last Filed: 07/05/20 17:14> Physical Exam Vital Signs: Vital Signs: Last Vital Signs Temp 98.3 F 07/05/20 14:00 Pulse 90 07/06/20 06:15 Resp 16 07/06/20 06:15 BP 139/83 07/06/20 06:15 Pulse Ox 97 07/06/20 06:15 Body Mass Index 25.8 <KASI Holm - Last Filed: 07/05/20 17:14> Vital Signs: Last Vital Signs Temp 98.3 F 07/05/20 14:00 Pulse 90 07/06/20 06:15 Resp 16 07/06/20 06:15 BP 139/83 07/06/20 06:15 Pulse Ox 97 07/06/20 06:15 Body Mass Index 25.8 <Chanelle Kemp MD - Last Filed: 07/06/20 02:02> Vital Signs: Last Vital Signs Temp 98.3 F 07/05/20 14:00 Pulse 90 07/06/20 06:15 Resp 16 07/06/20 06:15 BP 139/83 07/06/20 06:15 Pulse Ox 97 07/06/20 06:15 Body Mass Index 25.8 <Julia Loza DO - Last Filed: 07/06/20 07:06> Const: General: cooperative and healthy appearing <KASI Holm - Last Filed: 07/05/20 17:14> Orientation/consciousness: patient oriented x3 <KASI Holm - Last Filed: 07/05/20 17:14> Limitations: no limitations <KASI Holm - Last Filed: 07/05/20 17:14> HENMT: Head: Yes normal to inspection <KASI Holm - Last Filed: 07/05/20 17:14> Ears: hearing grossly normal bilaterally <KASI Holm - Last Filed: 07/05/20 17:14> General nose exam: Normal external nose present <KASI Holm - Last Filed: 07/05/20 17:14> Face and sinus: Yes normal facial exam <KASI Holm - Last Filed: 07/05/20 17:14> Eyes: General: appearance normal, both eyes and all related structures <KASI Holm - Last Filed: 07/05/20 17:14> EOM: EOMs intact bilaterally <KASI Holm - Last Filed: 07/05/20 17:14> Neck: Neck: Yes normal visual inspection <Blaire Josef PA - Last Filed: 07/05/20 17:14> Resp: Effort & Inspection: normal respiratory effort <Blaire Josef PA - Last Filed: 07/05/20 17:14> Auscultation: clear to auscultation bilaterally, no rales, no rhonchi and no wheezes <Blaire Josef PA - Last Filed: 07/05/20 17:14> Cardio: Rate: regular rate <Blaire [facility] - Last Filed: 07/05/20 17:14> Heart sounds: S1 normal heart sound present and S2 normal heart sound present <Blaire Josef, PA - Last Filed: 07/05/20 17:14> GI: Inspection: Yes normal to inspection <Blaire Josef PA - Last Filed: 07/05/20 17:14> Palpation (GI): Soft to palpation, nontender, no guarding and not rigid <Blaire Josef PA - Last Filed: 07/05/20 17:14> Skin: Rashes: no rashes <Blaire Josef PA - Last Filed: 07/05/20 17:14> Wounds: no wounds <Blaire Josef PA - Last Filed: 07/05/20 17:14> Neuro: General: patient oriented x3, gait normal, tone normal, moves all extremities, no focal motor deficits and CN's II-XI intact bilaterally <Blaire Josef PA - Last Filed: 07/05/20 17:14> Cognition (Neuro): normal cognition <Blaire Josef PA - Last Filed: 07/05/20 17:14> Speech: No Abnormal speech present <Blaire Josef PA - Last Filed: 07/05/20 17:14> Gait exam (Neuro): Normal gait present <Blaire Josef PA - Last Filed: 07/05/20 17:14> Motor exam (neuro): 5/5 motor strength present throughout, Pronator motor function not present and no tremor noted <Blaire Josef PA - Last Filed: 07/05/20 17:14> Sensory Exam: No Sensory deficit (Neuro) <Blaire Bahena PA - Last Filed: 07/05/20 17:14> Coordination: [id number] test normal <KASI Holm - Last Filed: 07/05/20 17:14> Extrem: General: Yes normal to inspection <KASI Holm - Last Filed: 07/05/20 17:14> Course Course Course Narrative: -patient was evaluated by Psychiatry this morning recommendations include: Beginning Paxil 5 mg daily to assess if current symptoms are partially from withdrawal after being on medication for about 20 years, TSH, B12, and folate added, continue Prozac, and recommended inpatient level of care -1507--labs unremarkable. Patient was evaluated by Speech and Swallow who recommended regular diet, however swallowing pills in puree solid. Also recommended patient obtains modified barium swallow study inpatient or outpatient due to reported pain/globus sensation -1700--ED care transferred to DIRECTOR PEDIATRIC Rafael pending N pietro <KASI Holm - Last Filed: 07/05/20 17:14> I received sign-out from nurse practitioner Jefry, [facility] evaluated the patient. Patient is now voluntary inpatient psych. However, patient is under [place], per [facility], patient has plan to jump from bridge. Unlikely that the patient will leave against medical advise <Chanelle Kemp MD - Last Filed: 07/06/20 02:02> Medical Decision Making [facility] Narrative Medical decision making narrative: 65-year-old female with a past medical history of anxiety, depression, hypertension, presenting to ED reporting she is feeling unwell with increased depression/fatigue/decreased desire to do anything. Admits to suicidal ideations with plan to overdose on sleeping pills or jump into the river and drown. Reports generalized myalgias, generalized headache, increased anxiety, intermittent dizziness/lightheadedness. On exam VSS, NAD, appears depressed, exam nonfocal. Concern for new medication reaction/side effect. R/o organic sx. Low concern for IC pathology with recent similar ED visits for similar sx and negative head CT Plan: EKG, Labs, UA, [place], BHN/Psych Consult <KASI Holm - Last Filed: 07/05/20 17:14> Lab Data Result diagrams: : 07/05/20 13:52 07/05/20 13:52 <KASI Holm - Last Filed: 07/05/20 17:14> Labs: Lab Results 07/05/20 07/05/20 07/05/20 Range/Units 10:12 10:12 13:51 WBC (4.8-10.8) X10*3/uL RBC (4.20-5.50) X10*6/uL Hgb (12.0-16.0) g/dl Hct (37-47) % MCV (80-98) fL MCH (27.0-33.0) pg MCHC (31.0-35.0) g/dl RDW (11.0-16.0) % Plt Count (160-400) X10*3/uL MPV (9.4-12.3) fL Immature Gran % (Auto) (0.0-0.4) % Neut % (Auto) (45-73) % Lymph % (Auto) (20-40) % [place] % (Auto) (2-11) % Eos % (Auto) (0-4) % Baso % (Auto) (0-2) % Lymph # (Auto) (1.2-4.9) X10*3/uL [place] # (Auto) (0.1-1.2) X10*3/uL Eos # (Auto) (0.0-0.4) X10*3/uL Baso # (Auto) (0.0-0.2) X10*3/uL Abs Immat Gran (auto) (0.00-0.03) X10*3/uL Absolute Neuts (auto) (2.0-8.3) X10*3/uL Absolute Nucleated RBC (0.0-0.012) X10*3/uL Nucleated RBC % (auto) (0.0-0.2) /100WBC Hold Blue Top Sodium (135-145) mmol/L Potassium (3.3-5.1) mmol/L Chloride (96-108) mmol/L Carbon Dioxide (22-29) mmol/L Anion Gap (12-20) BUN (9-16) mg/dL Creatinine (0.5-1.4) mg/dL Estim Creat Clear Calc Estimated GFR Random Glucose (60-115) mg/dL Calcium (8.4-10.2) mg/dL Magnesium (1.6-2.6) mg/dL Total Bilirubin (0.0-1.0) mg/dL Direct Bilirubin (0.0-0.5) mg/dL AST (5-31) U/L ALT (0-31) U/L Alkaline Phosphatase (39-117) U/L Total Protein (6.5-8.0) g/dL Albumin (3.5-5.0) g/dL Vitamin B12 (200-900) pg/mL Folate (> or = 4.0) ng/mL TSH 1.22 (0.32-4.0) uIU/mL Urine Color STRAW Urine Appearance CLEAR Urine pH 8.5 H (5.0-8.0) Ur Specific [place] 1.010 (1.005-1.025) Urine Protein NEG (NEG-TRACE) MG/DL Urine Glucose (UA) NEG (NEG) MG/DL Urine Ketones NEG (NEG) MG/DL Urine Blood NEG (NEG) Urine Nitrite NEG (NEG) Ur Leukocyte Esterase NEG (NEG) Urine Opiates Screen Not Detected (Not Detect) Ur Barbiturates Screen Not Detected (Not Detect) Ur Phencyclidine Scrn Not Detected (Not Detect) Ur Amphetamines Screen Not Detected (Not Detect) U Benzodiazepines Scrn Not Detected (Not Detect) Urine Cocaine Screen Not Detected (Not Detect) U Marijuana (THC) Screen Not Detected (Not Detect) COVID-19 (BIBI) (Negative) COVID-19 Clin Com 07/05/20 07/05/20 07/05/20 Range/Units 13:51 13:51 13:52 WBC 10.4 (4.8-10.8) X10*3/uL RBC 5.10 (4.20-5.50) X10*6/uL Hgb 14.5 (12.0-16.0) g/dl Hct 43.7 (37-47) % MCV 85.7 (80-98) fL MCH 28.4 (27.0-33.0) pg MCHC 33.2 (31.0-35.0) g/dl RDW 11.9 (11.0-16.0) % Plt Count 225 (160-400) X10*3/uL MPV 10.8 (9.4-12.3) fL Immature Gran % (Auto) 0.3 (0.0-0.4) % Neut % (Auto) 74.4 H (45-73) % Lymph % (Auto) 16.4 L (20-40) % [place] % (Auto) 7.5 (2-11) % Eos % (Auto) 0.6 (0-4) % Baso % (Auto) 0.8 (0-2) % Lymph # (Auto) 1.7 (1.2-4.9) X10*3/uL [place] # (Auto) 0.8 (0.1-1.2) X10*3/uL Eos # (Auto) 0.1 (0.0-0.4) X10*3/uL Baso # (Auto) 0.1 (0.0-0.2) X10*3/uL Abs Immat Gran (auto) 0.03 (0.00-0.03) X10*3/uL Absolute Neuts (auto) 7.7 (2.0-8.3) X10*3/uL Absolute Nucleated RBC 0.000 (0.0-0.012) X10*3/uL Nucleated RBC % (auto) 0.0 (0.0-0.2) /100WBC Hold Blue Top Sodium (135-145) mmol/L Potassium (3.3-5.1) mmol/L Chloride (96-108) mmol/L Carbon Dioxide (22-29) mmol/L Anion Gap (12-20) BUN (9-16) mg/dL Creatinine (0.5-1.4) mg/dL Estim Creat Clear Calc Estimated GFR Random Glucose (60-115) mg/dL Calcium (8.4-10.2) mg/dL Magnesium (1.6-2.6) mg/dL Total Bilirubin (0.0-1.0) mg/dL Direct Bilirubin (0.0-0.5) mg/dL AST (5-31) U/L ALT (0-31) U/L Alkaline Phosphatase (39-117) U/L Total Protein (6.5-8.0) g/dL Albumin (3.5-5.0) g/dL Vitamin B12 902 H (200-900) pg/mL Folate 16.7 (> or = 4.0) ng/mL TSH 1.01 (0.32-4.0) uIU/mL Urine Color Urine Appearance Urine pH (5.0-8.0) Ur Specific [place] (1.005-1.025) Urine Protein (NEG-TRACE) MG/DL Urine Glucose (UA) (NEG) MG/DL Urine Ketones (NEG) MG/DL Urine Blood (NEG) Urine Nitrite (NEG) Ur Leukocyte Esterase (NEG) Urine Opiates Screen (Not Detect) Ur Barbiturates Screen (Not Detect) Ur Phencyclidine Scrn (Not Detect) Ur Amphetamines Screen (Not Detect) U Benzodiazepines Scrn (Not Detect) Urine Cocaine Screen (Not Detect) U Marijuana (THC) Screen (Not Detect) COVID-19 (BIBI) (Negative) COVID-19 Clin Com 07/05/20 07/05/20 07/05/20 Range/Units 13:52 13:52 13:52 WBC (4.8-10.8) X10*3/uL RBC (4.20-5.50) X10*6/uL Hgb (12.0-16.0) g/dl Hct (37-47) % MCV (80-98) fL MCH (27.0-33.0) pg MCHC (31.0-35.0) g/dl RDW (11.0-16.0) % Plt Count (160-400) X10*3/uL MPV (9.4-12.3) fL Immature Gran % (Auto) (0.0-0.4) % Neut % (Auto) (45-73) % Lymph % (Auto) (20-40) % [place] % (Auto) (2-11) % Eos % (Auto) (0-4) % Baso % (Auto) (0-2) % Lymph # (Auto) (1.2-4.9) X10*3/uL [place] # (Auto) (0.1-1.2) X10*3/uL Eos # (Auto) (0.0-0.4) X10*3/uL Baso # (Auto) (0.0-0.2) X10*3/uL Abs Immat Gran (auto) (0.00-0.03) X10*3/uL Absolute Neuts (auto) (2.0-8.3) X10*3/uL Absolute Nucleated RBC (0.0-0.012) X10*3/uL Nucleated RBC % (auto) (0.0-0.2) /100WBC Hold Blue Top SEE NOTE Sodium 140 (135-145) mmol/L Potassium 4.5 (3.3-5.1) mmol/L Chloride 101 (96-108) mmol/L Carbon Dioxide 28 (22-29) mmol/L Anion Gap 16 (12-20) BUN 9 (9-16) mg/dL Creatinine 0.75 (0.5-1.4) mg/dL Estim Creat Clear Calc 77.3 Estimated GFR > 60 Random Glucose 194 H D (60-115) mg/dL Calcium 9.4 (8.4-10.2) mg/dL Magnesium 2.2 (1.6-2.6) mg/dL Total Bilirubin 0.4 (0.0-1.0) mg/dL Direct Bilirubin < 0.2 (0.0-0.5) mg/dL AST 15 (5-31) U/L ALT 20 (0-31) U/L Alkaline Phosphatase 72 (39-117) U/L Total Protein 6.6 (6.5-8.0) g/dL Albumin 4.1 (3.5-5.0) g/dL Vitamin B12 (200-900) pg/mL Folate (> or = 4.0) ng/mL TSH (0.32-4.0) uIU/mL Urine Color Urine Appearance Urine pH (5.0-8.0) Ur Specific [place] (1.005-1.025) Urine Protein (NEG-TRACE) MG/DL Urine Glucose (UA) (NEG) MG/DL Urine Ketones (NEG) MG/DL Urine Blood (NEG) Urine Nitrite (NEG) Ur Leukocyte Esterase (NEG) Urine Opiates Screen (Not Detect) Ur Barbiturates Screen (Not Detect) Ur Phencyclidine Scrn (Not Detect) Ur Amphetamines Screen (Not Detect) U Benzodiazepines Scrn (Not Detect) Urine Cocaine Screen (Not Detect) U Marijuana (THC) Screen (Not Detect) COVID-19 (BIBI) Negative (Negative) COVID-19 Clin Com See Note <KASI oHlm - Last Filed: 07/05/20 17:14> Lab Results 07/05/20 07/05/20 07/05/20 Range/Units 10:12 10:12 13:51 WBC (4.8-10.8) X10*3/uL RBC (4.20-5.50) X10*6/uL Hgb (12.0-16.0) g/dl Hct (37-47) % MCV (80-98) fL MCH (27.0-33.0) pg MCHC (31.0-35.0) g/dl RDW (11.0-16.0) % Plt Count (160-400) X10*3/uL MPV (9.4-12.3) fL Immature Gran % (Auto) (0.0-0.4) % Neut % (Auto) (45-73) % Lymph % (Auto) (20-40) % [place] % (Auto) (2-11) % Eos % (Auto) (0-4) % Baso % (Auto) (0-2) % Lymph # (Auto) (1.2-4.9) X10*3/uL [place] # (Auto) (0.1-1.2) X10*3/uL Eos # (Auto) (0.0-0.4) X10*3/uL Baso # (Auto) (0.0-0.2) X10*3/uL Abs Immat Gran (auto) (0.00-0.03) X10*3/uL Absolute Neuts (auto) (2.0-8.3) X10*3/uL Absolute Nucleated RBC (0.0-0.012) X10*3/uL Nucleated RBC % (auto) (0.0-0.2) /100WBC Hold Blue Top Sodium (135-145) mmol/L Potassium (3.3-5.1) mmol/L Chloride (96-108) mmol/L Carbon Dioxide (22-29) mmol/L Anion Gap (12-20) BUN (9-16) mg/dL Creatinine (0.5-1.4) mg/dL Estim Creat Clear Calc Estimated GFR Random Glucose (60-115) mg/dL Calcium (8.4-10.2) mg/dL Magnesium (1.6-2.6) mg/dL Total Bilirubin (0.0-1.0) mg/dL Direct Bilirubin (0.0-0.5) mg/dL AST (5-31) U/L ALT (0-31) U/L Alkaline Phosphatase (39-117) U/L Total Protein (6.5-8.0) g/dL Albumin (3.5-5.0) g/dL Vitamin B12 (200-900) pg/mL Folate (> or = 4.0) ng/mL TSH 1.22 (0.32-4.0) uIU/mL Urine Color STRAW Urine Appearance CLEAR Urine pH 8.5 H (5.0-8.0) Ur Specific [place] 1.010 (1.005-1.025) Urine Protein NEG (NEG-TRACE) MG/DL Urine Glucose (UA) NEG (NEG) MG/DL Urine Ketones NEG (NEG) MG/DL Urine Blood NEG (NEG) Urine Nitrite NEG (NEG) Ur Leukocyte Esterase NEG (NEG) Urine Opiates Screen Not Detected (Not Detect) Ur Barbiturates Screen Not Detected (Not Detect) Ur Phencyclidine Scrn Not Detected (Not Detect) Ur Amphetamines Screen Not Detected (Not Detect) U Benzodiazepines Scrn Not Detected (Not Detect) Urine Cocaine Screen Not Detected (Not Detect) U Marijuana (THC) Screen Not Detected (Not Detect) COVID-19 (BIBI) (Negative) COVID-19 Clin Com 07/05/20 07/05/20 07/05/20 Range/Units 13:51 13:51 13:52 WBC 10.4 (4.8-10.8) X10*3/uL RBC 5.10 (4.20-5.50) X10*6/uL Hgb 14.5 (12.0-16.0) g/dl Hct 43.7 (37-47) % MCV 85.7 (80-98) fL MCH 28.4 (27.0-33.0) pg MCHC 33.2 (31.0-35.0) g/dl RDW 11.9 (11.0-16.0) % Plt Count 225 (160-400) X10*3/uL MPV 10.8 (9.4-12.3) fL Immature Gran % (Auto) 0.3 (0.0-0.4) % Neut % (Auto) 74.4 H (45-73) % Lymph % (Auto) 16.4 L (20-40) % [place] % (Auto) 7.5 (2-11) % Eos % (Auto) 0.6 (0-4) % Baso % (Auto) 0.8 (0-2) % Lymph # (Auto) 1.7 (1.2-4.9) X10*3/uL [place] # (Auto) 0.8 (0.1-1.2) X10*3/uL Eos # (Auto) 0.1 (0.0-0.4) X10*3/uL Baso # (Auto) 0.1 (0.0-0.2) X10*3/uL Abs Immat Gran (auto) 0.03 (0.00-0.03) X10*3/uL Absolute Neuts (auto) 7.7 (2.0-8.3) X10*3/uL Absolute Nucleated RBC 0.000 (0.0-0.012) X10*3/uL Nucleated RBC % (auto) 0.0 (0.0-0.2) /100WBC Hold Blue Top Sodium (135-145) mmol/L Potassium (3.3-5.1) mmol/L Chloride (96-108) mmol/L Carbon Dioxide (22-29) mmol/L Anion Gap (12-20) BUN (9-16) mg/dL Creatinine (0.5-1.4) mg/dL Estim Creat Clear Calc Estimated GFR Random Glucose (60-115) mg/dL Calcium (8.4-10.2) mg/dL Magnesium (1.6-2.6) mg/dL Total Bilirubin (0.0-1.0) mg/dL Direct Bilirubin (0.0-0.5) mg/dL AST (5-31) U/L ALT (0-31) U/L Alkaline Phosphatase (39-117) U/L Total Protein (6.5-8.0) g/dL Albumin (3.5-5.0) g/dL Vitamin B12 902 H (200-900) pg/mL Folate 16.7 (> or = 4.0) ng/mL TSH 1.01 (0.32-4.0) uIU/mL Urine Color Urine Appearance Urine pH (5.0-8.0) Ur Specific [place] (1.005-1.025) Urine Protein (NEG-TRACE) MG/DL Urine Glucose (UA) (NEG) MG/DL Urine Ketones (NEG) MG/DL Urine Blood (NEG) Urine Nitrite (NEG) Ur Leukocyte Esterase (NEG) Urine Opiates Screen (Not Detect) Ur Barbiturates Screen (Not Detect) Ur Phencyclidine Scrn (Not Detect) Ur Amphetamines Screen (Not Detect) U Benzodiazepines Scrn (Not Detect) Urine Cocaine Screen (Not Detect) U Marijuana (THC) Screen (Not Detect) COVID-19 (BIBI) (Negative) COVID-19 Clin Com 07/05/20 07/05/20 07/05/20 Range/Units 13:52 13:52 13:52 WBC (4.8-10.8) X10*3/uL RBC (4.20-5.50) X10*6/uL Hgb (12.0-16.0) g/dl Hct (37-47) % MCV (80-98) fL MCH (27.0-33.0) pg MCHC (31.0-35.0) g/dl RDW (11.0-16.0) % Plt Count (160-400) X10*3/uL MPV (9.4-12.3) fL Immature Gran % (Auto) (0.0-0.4) % Neut % (Auto) (45-73) % Lymph % (Auto) (20-40) % [place] % (Auto) (2-11) % Eos % (Auto) (0-4) % Baso % (Auto) (0-2) % Lymph # (Auto) (1.2-4.9) X10*3/uL [place] # (Auto) (0.1-1.2) X10*3/uL Eos # (Auto) (0.0-0.4) X10*3/uL Baso # (Auto) (0.0-0.2) X10*3/uL Abs Immat Gran (auto) (0.00-0.03) X10*3/uL Absolute Neuts (auto) (2.0-8.3) X10*3/uL Absolute Nucleated RBC (0.0-0.012) X10*3/uL Nucleated RBC % (auto) (0.0-0.2) /100WBC Hold Blue Top SEE NOTE Sodium 140 (135-145) mmol/L Potassium 4.5 (3.3-5.1) mmol/L Chloride 101 (96-108) mmol/L Carbon Dioxide 28 (22-29) mmol/L Anion Gap 16 (12-20) BUN 9 (9-16) mg/dL Creatinine 0.75 (0.5-1.4) mg/dL Estim Creat Clear Calc 77.3 Estimated GFR > 60 Random Glucose 194 H D (60-115) mg/dL Calcium 9.4 (8.4-10.2) mg/dL Magnesium 2.2 (1.6-2.6) mg/dL Total Bilirubin 0.4 (0.0-1.0) mg/dL Direct Bilirubin < 0.2 (0.0-0.5) mg/dL AST 15 (5-31) U/L ALT 20 (0-31) U/L Alkaline Phosphatase 72 (39-117) U/L Total Protein 6.6 (6.5-8.0) g/dL Albumin 4.1 (3.5-5.0) g/dL Vitamin B12 (200-900) pg/mL Folate (> or = 4.0) ng/mL TSH (0.32-4.0) uIU/mL Urine Color Urine Appearance Urine pH (5.0-8.0) Ur Specific [place] (1.005-1.025) Urine Protein (NEG-TRACE) MG/DL Urine Glucose (UA) (NEG) MG/DL Urine Ketones (NEG) MG/DL Urine Blood (NEG) Urine Nitrite (NEG) Ur Leukocyte Esterase (NEG) Urine Opiates Screen (Not Detect) Ur Barbiturates Screen (Not Detect) Ur Phencyclidine Scrn (Not Detect) Ur Amphetamines Screen (Not Detect) U Benzodiazepines Scrn (Not Detect) Urine Cocaine Screen (Not Detect) U Marijuana (THC) Screen (Not Detect) COVID-19 (BIBI) Negative (Negative) COVID-19 Clin Com See Note <Chanelle Kemp MD - Last Filed: 07/06/20 02:02> Lab Results 07/05/20 07/05/20 07/05/20 Range/Units 10:12 10:12 13:51 WBC (4.8-10.8) X10*3/uL RBC (4.20-5.50) X10*6/uL Hgb (12.0-16.0) g/dl Hct (37-47) % MCV (80-98) fL MCH (27.0-33.0) pg MCHC (31.0-35.0) g/dl RDW (11.0-16.0) % Plt Count (160-400) X10*3/uL MPV (9.4-12.3) fL Immature Gran % (Auto) (0.0-0.4) % Neut % (Auto) (45-73) % Lymph % (Auto) (20-40) % [place] % (Auto) (2-11) % Eos % (Auto) (0-4) % Baso % (Auto) (0-2) % Lymph # (Auto) (1.2-4.9) X10*3/uL [place] # (Auto) (0.1-1.2) X10*3/uL Eos # (Auto) (0.0-0.4) X10*3/uL Baso # (Auto) (0.0-0.2) X10*3/uL Abs Immat Gran (auto) (0.00-0.03) X10*3/uL Absolute Neuts (auto) (2.0-8.3) X10*3/uL Absolute Nucleated RBC (0.0-0.012) X10*3/uL Nucleated RBC % (auto) (0.0-0.2) /100WBC Hold Blue Top Sodium (135-145) mmol/L Potassium (3.3-5.1) mmol/L Chloride (96-108) mmol/L Carbon Dioxide (22-29) mmol/L Anion Gap (12-20) BUN (9-16) mg/dL Creatinine (0.5-1.4) mg/dL Estim Creat Clear Calc Estimated GFR Random Glucose (60-115) mg/dL Calcium (8.4-10.2) mg/dL Magnesium (1.6-2.6) mg/dL Total Bilirubin (0.0-1.0) mg/dL Direct Bilirubin (0.0-0.5) mg/dL AST (5-31) U/L ALT (0-31) U/L Alkaline Phosphatase (39-117) U/L Total Protein (6.5-8.0) g/dL Albumin (3.5-5.0) g/dL Vitamin B12 (200-900) pg/mL Folate (> or = 4.0) ng/mL TSH 1.22 (0.32-4.0) uIU/mL Urine Color STRAW Urine Appearance CLEAR Urine pH 8.5 H (5.0-8.0) Ur Specific [place] 1.010 (1.005-1.025) Urine Protein NEG (NEG-TRACE) MG/DL Urine Glucose (UA) NEG (NEG) MG/DL Urine Ketones NEG (NEG) MG/DL Urine Blood NEG (NEG) Urine Nitrite NEG (NEG) Ur Leukocyte Esterase NEG (NEG) Urine Opiates Screen Not Detected (Not Detect) Ur Barbiturates Screen Not Detected (Not Detect) Ur Phencyclidine Scrn Not Detected (Not Detect) Ur Amphetamines Screen Not Detected (Not Detect) U Benzodiazepines Scrn Not Detected (Not Detect) Urine Cocaine Screen Not Detected (Not Detect) U Marijuana (THC) Screen Not Detected (Not Detect) COVID-19 (BIBI) (Negative) COVID-19 Clin Com 07/05/20 07/05/20 07/05/20 Range/Units 13:51 13:51 13:52 WBC 10.4 (4.8-10.8) X10*3/uL RBC 5.10 (4.20-5.50) X10*6/uL Hgb 14.5 (12.0-16.0) g/dl Hct 43.7 (37-47) % MCV 85.7 (80-98) fL MCH 28.4 (27.0-33.0) pg MCHC 33.2 (31.0-35.0) g/dl RDW 11.9 (11.0-16.0) % Plt Count 225 (160-400) X10*3/uL MPV 10.8 (9.4-12.3) fL Immature Gran % (Auto) 0.3 (0.0-0.4) % Neut % (Auto) 74.4 H (45-73) % Lymph % (Auto) 16.4 L (20-40) % [place] % (Auto) 7.5 (2-11) % Eos % (Auto) 0.6 (0-4) % Baso % (Auto) 0.8 (0-2) % Lymph # (Auto) 1.7 (1.2-4.9) X10*3/uL [place] # (Auto) 0.8 (0.1-1.2) X10*3/uL Eos # (Auto) 0.1 (0.0-0.4) X10*3/uL Baso # (Auto) 0.1 (0.0-0.2) X10*3/uL Abs Immat Gran (auto) 0.03 (0.00-0.03) X10*3/uL Absolute Neuts (auto) 7.7 (2.0-8.3) X10*3/uL Absolute Nucleated RBC 0.000 (0.0-0.012) X10*3/uL Nucleated RBC % (auto) 0.0 (0.0-0.2) /100WBC Hold Blue Top Sodium (135-145) mmol/L Potassium (3.3-5.1) mmol/L Chloride (96-108) mmol/L Carbon Dioxide (22-29) mmol/L Anion Gap (12-20) BUN (9-16) mg/dL Creatinine (0.5-1.4) mg/dL Estim Creat Clear Calc Estimated GFR Random Glucose (60-115) mg/dL Calcium (8.4-10.2) mg/dL Magnesium (1.6-2.6) mg/dL Total Bilirubin (0.0-1.0) mg/dL Direct Bilirubin (0.0-0.5) mg/dL AST (5-31) U/L ALT (0-31) U/L Alkaline Phosphatase (39-117) U/L Total Protein (6.5-8.0) g/dL Albumin (3.5-5.0) g/dL Vitamin B12 902 H (200-900) pg/mL Folate 16.7 (> or = 4.0) ng/mL TSH 1.01 (0.32-4.0) uIU/mL Urine Color Urine Appearance Urine pH (5.0-8.0) Ur Specific [place] (1.005-1.025) Urine Protein (NEG-TRACE) MG/DL Urine Glucose (UA) (NEG) MG/DL Urine Ketones (NEG) MG/DL Urine Blood (NEG) Urine Nitrite (NEG) Ur Leukocyte Esterase (NEG) Urine Opiates Screen (Not Detect) Ur Barbiturates Screen (Not Detect) Ur Phencyclidine Scrn (Not Detect) Ur Amphetamines Screen (Not Detect) U Benzodiazepines Scrn (Not Detect) Urine Cocaine Screen (Not Detect) U Marijuana (THC) Screen (Not Detect) COVID-19 (BIBI) (Negative) COVID-19 Clin Com 07/05/20 07/05/20 07/05/20 Range/Units 13:52 13:52 13:52 WBC (4.8-10.8) X10*3/uL RBC (4.20-5.50) X10*6/uL Hgb (12.0-16.0) g/dl Hct (37-47) % MCV (80-98) fL MCH (27.0-33.0) pg MCHC (31.0-35.0) g/dl RDW (11.0-16.0) % Plt Count (160-400) X10*3/uL MPV (9.4-12.3) fL Immature Gran % (Auto) (0.0-0.4) % Neut % (Auto) (45-73) % Lymph % (Auto) (20-40) % [place] % (Auto) (2-11) % Eos % (Auto) (0-4) % Baso % (Auto) (0-2) % Lymph # (Auto) (1.2-4.9) X10*3/uL [place] # (Auto) (0.1-1.2) X10*3/uL Eos # (Auto) (0.0-0.4) X10*3/uL Baso # (Auto) (0.0-0.2) X10*3/uL Abs Immat Gran (auto) (0.00-0.03) X10*3/uL Absolute Neuts (auto) (2.0-8.3) X10*3/uL Absolute Nucleated RBC (0.0-0.012) X10*3/uL Nucleated RBC % (auto) (0.0-0.2) /100WBC Hold Blue Top SEE NOTE Sodium 140 (135-145) mmol/L Potassium 4.5 (3.3-5.1) mmol/L Chloride 101 (96-108) mmol/L Carbon Dioxide 28 (22-29) mmol/L Anion Gap 16 (12-20) BUN 9 (9-16) mg/dL Creatinine 0.75 (0.5-1.4) mg/dL Estim Creat Clear Calc 77.3 Estimated GFR > 60 Random Glucose 194 H D (60-115) mg/dL Calcium 9.4 (8.4-10.2) mg/dL Magnesium 2.2 (1.6-2.6) mg/dL Total Bilirubin 0.4 (0.0-1.0) mg/dL Direct Bilirubin < 0.2 (0.0-0.5) mg/dL AST 15 (5-31) U/L ALT 20 (0-31) U/L Alkaline Phosphatase 72 (39-117) U/L Total Protein 6.6 (6.5-8.0) g/dL Albumin 4.1 (3.5-5.0) g/dL Vitamin B12 (200-900) pg/mL Folate (> or = 4.0) ng/mL TSH (0.32-4.0) uIU/mL Urine Color Urine Appearance Urine pH (5.0-8.0) Ur Specific [place] (1.005-1.025) Urine Protein (NEG-TRACE) MG/DL Urine Glucose (UA) (NEG) MG/DL Urine Ketones (NEG) MG/DL Urine Blood (NEG) Urine Nitrite (NEG) Ur Leukocyte Esterase (NEG) Urine Opiates Screen (Not Detect) Ur Barbiturates Screen (Not Detect) Ur Phencyclidine Scrn (Not Detect) Ur Amphetamines Screen (Not Detect) U Benzodiazepines Scrn (Not Detect) Urine Cocaine Screen (Not Detect) U Marijuana (THC) Screen (Not Detect) COVID-19 (BIBI) Negative (Negative) COVID-19 Clin Com See Note <Julia Loza DO - Last Filed: 07/06/20 07:06> Discharge Plan Discharge Prescriptions: No Action amlodipine 2.5 mg Tablet 2.5 mg PO DAILY@1700 RF: 0 aspirin [Aspirin Child] 81 mg Tablet,Chewable 81 mg PO DAILY RF: 0 cholecalciferol (vitamin D3) [Vitamin D3] 10 mcg (400 unit) Tablet 10 mcg PO BID RF: 0 trazodone 50 mg Tablet 25 mg PO BEDTIME RF: 0 fluoxetine 10 mg Capsule 10 mg PO DAILY RF: 0 <KASI Holm - Last Filed: 07/05/20 17:14> Referrals: Wes Lopez MD [Physician] - 5 days (For barium swallow study) <KASI Holm - Last Filed: 07/05/20 17:14>
[2020-07-05 10:31] LABS: Glucose Urine UA NEG (NEG); Leukocyte Esterase Urine NEG (NEG); Nitrite Urine NEG (NEG); PH 8.5 (5.0-8.0); Urine Blood NEG (NEG); Urine Ketones NEG (NEG); Urine Protein NEG (NEG-TRACE)
[2020-07-05 10:57] LABS: Amphetamine Screen Urine Not Detected (Not Detect); Barbiturates, Urine Not Detected (Not Detect); Benzodiazepines Screen Urine Not Detected (Not Detect); Cannabinoid Screen Urine Not Detected (Not Detect); Cocaine Screen Urine Not Detected (Not Detect); Opiate Screen Urine Not Detected (Not Detect); Phencyclidine Screen Urine Not Detected (Not Detect)
[2020-07-05 10:59] LABS: Appearance Urine CLEAR; Color Urine STRAW
--- NOTE | 2020-07-05 11:53 | PM.PSYCN ---
History of Present Illness Date of Service: 07/05/20 Chief Complaint: med reaction? Reason for Consult: Increasing sx anxiety, depression, fatigue, weakness, headache, vertigo, unable to walk without walker or assistance. Requesting physician: Blaire Bahena Discussed with referring provider: Yes Sources of Information: patient interviewed and chart reviewed Additional Sources of Information: Son HPI Narrative: 65 yo female, hx of anxiety, depression, recent discharge from respite where she had a medication change from Paxil to Prozac presents with increase of sx of depression, anxiety, SI, fatigue, anergia, amotivation with SI-plans to OD or jump into the river. Reports since med change sx have become worse. Reports Paxil to 20 mg since 2006 with three day taper and transition to Prozac while at respite. Pt discharged from respite 06/28. Since discharge son reports pt needs ambulation assistance at home, using a walker now and has lost functioning. Past Psychiatric History: IP: Denies OP: PCP prescribes. No therapist Respite: 06/24-06/28/20 with N Trials: Paxil, Trazodone, Prozac Medical Evaluation Reviewed: Yes Pt reports she needs re-eval for HTN as her blood pressure meds need titration Personal & Social History: Lives with her son who reports pt is progressively weaker, using a walker and a cane, is unable to follow TV programs and has lost interest. Review of Systems Constitutional: Reports difficulty sleeping, Reports fatigue, Reports headache(s), Reports lethargy, Reports malaise and Reports weakness Reports dizziness, Reports headache(s), Reports odynophagia and Reports disequilibrium Gastrointestinal: Reports odynophagia and Reports other (swallowing difficulty) Musculoskeletal: Reports muscle weakness Reports dizziness, Reports headache(s), Reports lack of coordination, Reports focal weakness, Reports disequilibrium and Reports weakness Psychiatric: Reports anxiety, Reports depression, Reports difficulty concentrating, Reports hopelessness, Reports anhedonia, Reports panic attacks and Reports suicidal ideation (plan: OD or drown in the river) Endocrine: Reports fatigue [facility] Medical History (Updated 07/05/20 @ 12:07 by Karine Eagle, VOCATIONAL REHABILITATION COUNSELOR) Anxiety Depression Generalized anxiety disorder Gum disease HTN (hypertension) Mass of breast Recurrent major depression-severe Narrative: Pt reports she needs eval for titration of Norvasc Family History: Mental Health issues on both sides. Alcoholism on mother's side of the family Social History: Lives with her son Substance History: Denies Trauma History: Not discussed Diagnostics Vital Signs (24Hr): Vital Signs - 24 hr 07/05/20 07:24 07/05/20 11:47 Temperature 98.3 F Pulse Rate 97 83 Respiratory Rate 18 16 Blood Pressure 170/82 H 168/84 H Pulse Oximetry 98 98 Body Mass Index 25.8 Labs Labs: Laboratory Results - last 48 hr 07/05/20 07/05/20 10:12 10:12 Urine Color STRAW Urine Appearance CLEAR Urine pH 8.5 H Ur Specific [place] 1.010 Urine Protein NEG Urine Glucose (UA) NEG Urine Ketones NEG Urine Blood NEG Urine Nitrite NEG Ur Leukocyte Esterase NEG Urine Opiates Screen Not Detected Ur Barbiturates Screen Not Detected Ur Phencyclidine Scrn Not Detected Ur Amphetamines Screen Not Detected U Benzodiazepines Scrn Not Detected Urine Cocaine Screen Not Detected U Marijuana (THC) Screen Not Detected Mental Status Exam Mental Status Exam Narrative: Pt seen with her son present. Patient Appearance: Appropriate Patient Orientation: Person, Place, Time and Situation Level of Consciousness: Awake and Alert Patient Behavior: Appropriate, Talkative, Cooperative, Anxious, Fearful, Fatigued, Distractible and Good Eye Contact Mood Description: Depressed and Anxious Affect Description: Flat Patient Cognition Impaired: No Ability to Follow Directions: Good Speech Pattern: Clear, Appropriate, Spontaneous Speech and Soft-Spoken Memory Description: Intact Hallucinations: None Delusions: Not Present Thought Process: Rumination Thought Content: positive for [place], positive for Circumstantial, positive for Perseveration and positive for Suicidal Ideation Depressive Symptoms: Increased Anxiety, Diff. Making Decisions, Difficulty Sleeping, Hopelessness, Unexplained Headaches, Unhappiness, Increased Fatigue, Thoughts of /Suicide, Loss of Energy and Difficulty Concentrating Judgement: Fair Medications Allergies Allergies Allergy/AdvReac Type Severity Reaction Status Date / Time Penicillins AdvReac Rash Verified 06/23/20 03:59 Assessment & Plan Assessment & Plan (1) Recurrent major depression-severe: Status: Acute Code(s): F33.2 - Major depressive disorder, recurrent severe without psychotic features Recommendations: 65 yo female, long history of depression and use of Paxil to 20 mg since 2006. Pt admitted to respite last week and Paxil tapered and changed to Prozac. Pt discharged 06/28 with reported decline by herself and son since the Paxil stopped with headaches, vertigo, dizziness, anxiety, difficulty swallowing, inability to ambulate without a walker, difficulty with eating and drinking. By history, pt has had difficulty coming off Paxil, increasing and decreasing dosages often. 1. Begin Paxil 5 mg daily-to assess if current sx reported are partially from withdrawal after ~20 years of use of the medication. 2. TSH, B12, Folate 3. Swallow Eval at bedside-reports difficultly with meds, food, fluids along with pain 4. Continue Prozac 5. Recommend in pt LOC for full eval due to significant decline in LOF. (2) Generalized anxiety disorder: Status: Acute Code(s): F41.1 - Generalized anxiety disorder Recommendations: -Encouraged pt to utilize Ativan prn. Greater than 50% of the session was spent on counseling and/or coordination of care
[2020-07-05] MEDS: LORazepam 0.5 MG TABLET PO (12:10)
[2020-07-05 13:56] LABS: MANUAL DIFF FLAG NO
[2020-07-05 14:07] LABS: Basophils Absolute Auto 0.1 X10*3/uL (0.0-0.2); Basophils Percent Auto 0.8 % (0-2); Eosinophils Absolute Auto 0.1 X10*3/uL (0.0-0.4); Eosinophils Percent Auto 0.6 % (0-4); Hematocrit 43.7 % (37-47); Hemoglobin 14.5 g/dl (12.0-16.0); Imm Gran Abs Auto 0.03 X10*3/uL (0.00-0.03); Imm Gran Pct Auto 0.3 % (0.0-0.4); Lymphocytes Absolute Auto 1.7 X10*3/uL (1.2-4.9); Lymphocytes Percent Auto 16.4 % (20-40); Mean Corpuscular HGB Conc 33.2 g/dl (31.0-35.0); Mean Corpuscular Hemoglobin 28.4 pg (27.0-33.0); Mean Corpuscular Volume 85.7 fL (80-98); Mean Platelet Volume 10.8 fL (9.4-12.3); Monocytes Absolute Auto 0.8 X10*3/uL (0.1-1.2); Monocytes Percent Auto 7.5 % (2-11); Neutrophils Absolute Auto 7.7 X10*3/uL (2.0-8.3); Neutrophils Percent Auto 74.4 % (45-73); Platelet Count 225 X10*3/uL (160-400); Red Cell Distribution Width 11.9 % (11.0-16.0); White Blood Count 10.4 X10*3/uL (4.8-10.8)
[2020-07-05] MEDS: PARoxetine HCL 10 MG TABLET 5 MG PO (14:20)
[2020-07-05 14:25] LABS: Alanine Aminotransferase 20 U/L (0-31); Albumin Level 4.1 g/dL (3.5-5.0); Alkaline Phosphatase 72 U/L (39-117); Anion Gap 16 (12-20); Aspartate Amino Transferase 15 U/L (5-31); Bilirubin Direct < 0.2 mg/dL (0.0-0.5); Bilirubin Total 0.4 mg/dL (0.0-1.0); Blood Urea Nitrogen 9 mg/dL (9-16); Calcium 9.4 mg/dL (8.4-10.2); Carbon Dioxide 28 mmol/L (22-29); Chloride 101 mmol/L (96-108); Creatinine Clr Calc Pharmacy 77.3; Estimated Glomerular Filt Rate > 60; Glucose Random 194 mg/dL (60-115); Magnesium 2.2 mg/dL (1.6-2.6); Potassium 4.5 mmol/L (3.3-5.1); Sodium 140 mmol/L (135-145); Total Protein 6.6 g/dL (6.5-8.0)
--- NOTE | 2020-07-05 14:27 | PC.NURSE ---
PT HAS BEEN RESTING QUEITLY. SINCE THIS RN ARRIVAL AT 11AM. UP TO BR WITH STEADY GAIT. SKIN PWD. FAMILY AT BEDSIDE. PT PATIENT WITH PROCESS OF MED CLEARANCE AND PSYCH CONSULT.
[2020-07-05 14:30] LABS: COVID-19 Test Negative (Negative)
[2020-07-05 14:45] LABS: TSH reflex Free T4 1.01 uIU/mL (0.32-4.0); Thyroid Stimulating Hormone 1.22 uIU/mL (0.32-4.0)
--- NOTE | 2020-07-05 14:45 | MHC.SL.SWA ---
Speech Pathologist Impression: Pharyngeal Dysphagia Dysphasia Diet Status: No Change Liquid Consistency and Strategies for Safe Swallow: Liquid Intake Recommendation: Thin Liquid Intake Strategies: Unrestricted Solid Food Consistency: Dietary Recommendations: Regular Additional Modifications to Solid Foods: Multiple swallows for solids. Patient reports some difficulty swallowing pills with liquid. REINSURANCE ANALYST suggested administering pills in puree solid (applesauce, pudding, yogurt). Oral Medication Intake: Whole with Puree Compensatory Strategies and Precautions to be Taken for Safe Swallow: Sitting Upright (90 deg) Double Swallow Small Bites and Sips Alternate Liquids/Solids Rate of Ingestion Change Supervision While Eating and Drinking for Safe Swallow: None Needed Recommendation for Speech: Modified Barium Swallow Study - Inpatient Modified Barium Swallow Study - Outpatient Comment: Recommend MBSS inpatient or outpatient due to reports of pain and globus sensation. Senior Devops Engineer Clinican/Clinical Fellow: No Supervisory Statement: I have reviewed and agree with the student/clinical fellow's documentation: N/A Speech Language Pathologist: She Woo M.A., CCC-REINSURANCE ANALYST
[2020-07-05 15:01] LABS: Folate 16.7 ng/mL (> or = 4.0); Vitamin B12 902 pg/mL (200-900)
[2020-07-05] MEDS: amLODIPine Besylate 2.5 MG TABLET PO (17:42)
--- NOTE | 2020-07-05 18:40 | PC.NURSE ---
resting quietly. pt may bemoved to hallway. is agreeable. no si/hi. calm
--- NOTE | 2020-07-05 19:20 | PC.NURSE ---
rn to rn with Edilson Pereira
--- NOTE | 2020-07-05 19:36 | PC.NURSE ---
Report received. PT is resting quietly in bed. Calm and cooperative. No complaints at this time. PT is waiting to be seen by N.
--- NOTE | 2020-07-05 20:18 | PC.NURSE ---
[facility] called by this rn. They confirm that referal was recieved
--- NOTE | 2020-07-05 21:14 | MHC.CARE ---
ETHEL will have a clinician available to see pt after 11pm. CARE team is not available to complete evaluation at this time. If pt is not seen by midnight, this credit underwriter will follow up with ETHEL re: need to take over management of case.
[2020-07-05] MEDS: traZODone HCL 25 MG HALFTAB PO (21:21)
[2020-07-05] MEDS: Cholecalciferol (Vitamin D3) 10 MCG TABLET PO (21:21)
--- NOTE | 2020-07-06 01:03 | PC.NURSE ---
[facility] at bed side.
--- NOTE | 2020-07-06 02:06 | PC.NURSE ---
PT evaluated by N. PT is now Section 12, inpatient bed search.
--- NOTE | 2020-07-06 05:52 | PC.NURSE ---
PT woke up complaining of severe anxiety and having thoughts that are overwhelming her ability to function and clearly express yourself. Provider made aware.
[2020-07-06 06:15] VITALS: BP 139/83; PULSE 90; RESP 16; O2SAT 97
[2020-07-06] MEDS: LORazepam 1 MG TABLET PO (06:48)
[2020-07-06] MEDS: FLUoxetine HCl 10 MG CAPSULE PO (08:47)
[2020-07-06] MEDS: Aspirin 81 MG TAB.CHEW PO (08:47)
[2020-07-06] MEDS: Cholecalciferol (Vitamin D3) 10 MCG TABLET PO ×2 (08:48→20:05)
[2020-07-06] MEDS: PARoxetine HCL 10 MG TABLET 5 MG PO (08:48)
[2020-07-06] MEDS: LORazepam 0.5 MG TABLET PO (10:28)
[2020-07-06 14:00] VITALS: RESP 18
[2020-07-06 18:30] VITALS: BP 134/64; PULSE 98; TEMP 36.3
[2020-07-06 18:58] VITALS: BP 134/64; PULSE 98
[2020-07-06] MEDS: amLODIPine Besylate 2.5 MG TABLET PO (18:58)
[2020-07-06] MEDS: traZODone HCL 25 MG HALFTAB PO (20:05)
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
[2020-07-07 06:00] VITALS: BP 145/74; PULSE 89; RESP 16; TEMP 36.9; O2SAT 98
[2020-07-07] MEDS: FLUoxetine HCl 10 MG CAPSULE PO (09:16)
[2020-07-07] MEDS: PARoxetine HCL 10 MG TABLET 5 MG PO (09:16)
[2020-07-07] MEDS: Cholecalciferol (Vitamin D3) 10 MCG TABLET PO ×2 (09:16→20:01)
[2020-07-07] MEDS: Aspirin 81 MG TAB.CHEW PO (09:16)
--- NOTE | 2020-07-07 14:06 | PC.NURSE ---
The pt was lying in bed and requested to speak with RN. Pt stated I just feel nothing, I feel like I can't feel things . This music writer and the pt walked down the hallway together after encouragement, the pt hesitant to go into the group room for Psych group, stated she would rather walk up and down hallway. The pt asked this music writer to check in on me in a little while , assured her I would.
[2020-07-07 16:40] VITALS: BP 165/84; PULSE 94
[2020-07-07] MEDS: amLODIPine Besylate 2.5 MG TABLET PO (16:40)
[2020-07-07 16:44] VITALS: TEMP 36.6; O2SAT 97
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
[2020-07-07 19:40] VITALS: BP 164/78; PULSE 89; RESP 20; TEMP 36.6; O2SAT 97
[2020-07-07] MEDS: traZODone HCL 25 MG HALFTAB PO (20:01)
[2020-07-08 06:00] VITALS: BP 164/71; PULSE 78; RESP 16; TEMP 36.8; O2SAT 97
[2020-07-08 07:00] VITALS: BMI 26.4
[2020-07-08] MEDS: Aspirin 81 MG TAB.CHEW PO (08:44)
[2020-07-08] MEDS: Cholecalciferol (Vitamin D3) 10 MCG TABLET PO ×2 (08:44→20:01)
[2020-07-08] MEDS: PARoxetine HCL 10 MG TABLET PO (08:44)
--- NOTE | 2020-07-08 11:42 | P.PNPSI_ITS ---
Subjective Subjective Date of Service: 07/08/20 Reason For Visit: med reaction? Subjective Notes: Conditional Voluntary Interim History: Pt discussed depressive sx prior to stopping Paxil-reports worry-over health, about dying, anxiety, depression, pain as she was in process of dental work and states my brain was always on, it was hard to shut down and if it did it was just blank. Discussed HTN sx since admission-will trial amlodipine increase to 5 mg daily. BP 145-164/70-80. Review of withdrawal sx of Paxil which she reports have subsided. Anxious, ruminative, focus on where she will live, from her son and re-defining her life. Discussed possible antidepressant options, side effects. Will trial Mirtazapine at hs to target current anxiety which she identifies as the main symptom. Medication Compliance: Yes Side effects from medications: No Attending Groups: No Review of Systems Review of Systems Yes all other systems are reviewed and are negative Constitutional: Reports fatigue, Reports malaise and Reports weakness Reports weakness Psychiatric: Reports anxiety, Reports change in appetite, Reports depression, Reports difficulty concentrating, Reports hopelessness, Reports anhedonia and Reports suicidal ideation Endocrine: Reports fatigue Mental Status Exam Mental Status Exam Patient Appearance: Appropriate Patient Orientation: Person, Place, Time and Situation Level of Consciousness: Alert Patient Behavior: Appropriate, Talkative, Cooperative, Passive and Good Eye Contact Mood Description: Depressed and Anxious Affect Description: Flat Patient Cognition Impaired: No Ability to Follow Directions: Good Speech Pattern: Perseverating, Spontaneous Speech and Soft-Spoken Memory Description: Episodic Impaired Hallucinations: None Delusions: Not Present Thought Process: Distracted, Rumination and Slowed Thinking Thought Content: positive for [place], positive for Circumstantial, positive for Perseveration, positive for Thought Blocking (possibly) and positive for Suicidal Ideation Depressive Symptoms: Increased Anxiety, Diff. Making Decisions, Increased Irritability, Loss of Int. in Activity, Feelings of Worthlessness, Hopelessness, Isolating-Friends/Family, Feelings of Guilt, Unhappiness, Increased Fatigue, Thoughts of /Suicide, Low Self Esteem, Loss of Energy and Difficulty Concentrating Judgement: Fair Diagnostics Vital Signs (24Hr): Vital Signs - 24 hr 07/07/20 16:40 07/07/20 16:44 07/07/20 19:40 Temperature 97.8 F 97.8 F Pulse Rate 94 89 Respiratory Rate 20 Blood Pressure 165/84 H 164/78 H Pulse Oximetry 97 97 07/08/20 06:00 Temperature 98.3 F Pulse Rate 78 Respiratory Rate 16 Blood Pressure 164/71 H Pulse Oximetry 97 Body Mass Index 25.8 Labs Results: 07/05/20 13:52 07/05/20 13:52 Medications Medications Current Medications Generic Name Dose Route Start Last Admin Trade Name Freq PRN Reason Stop Dose Admin Acetaminophen 650 mg 07/06/20 16:24 Acetaminophen 325 Mg Tablet PO Q6H PRN Headache/Pain Mild Scale (1-3) Al Hydroxide/Mg Hydroxide 30 ml 07/06/20 16:24 Magnesium Hydrox/Alum Hydrox 30 Ml Oral.Susp PO Q6H PRN Heartburn/Nausea Amlodipine Besylate 5 mg 07/08/20 17:00 Amlodipine Besylate 5 Mg Tablet PO 1700 [facility] Protocol Aspirin 81 mg 07/06/20 09:00 07/08/20 08:44 Aspirin 81 Mg Tab.Chew PO 81 mg DAILY MATRY Administration Hydroxyzine HCl 25 mg 07/06/20 16:24 Hydroxyzine Hcl 25 Mg Tablet PO BEDTIME PRN Anxiety Lorazepam 1 mg 07/06/20 16:27 Lorazepam 1 Mg Tablet PO Q4H PRN Anxiety Magnesium Hydroxide 30 ml 07/06/20 16:24 Milk Of Magnesia 30 Ml Oral.Susp PO DAILY PRN Constipation Mirtazapine 7.5 mg 07/08/20 21:00 Mirtazapine 7.5 Mg Tablet PO BEDTIME MARTY Paroxetine HCl 10 mg 07/08/20 09:00 07/08/20 08:44 Paroxetine Hcl 10 Mg Tablet PO 10 mg DAILY MARTY Administration Vitamin D 10 mcg 07/05/20 21:00 07/08/20 08:44 Cholecalciferol (Vitamin D3) 10 Mcg Tablet PO 10 mcg BID MARTY Administration Allergies Allergies Allergy/AdvReac Type Severity Reaction Status Date / Time Penicillins AdvReac Rash Verified 06/23/20 03:59 Assessment & Plan Assessment & Plan (1) Generalized anxiety disorder: Status: Acute Code(s): F41.1 - Generalized anxiety disorder Assessment and Plan: Pt currently very fearful of her living situation. States regime was helping until she went home to manage the stress of her son. Will re-titrate Paxil and taper when pt has some relief from regime. Remeron 7.5 mg HS (2) Recurrent major depression-severe: Status: Acute Code(s): F33.2 - Major depressive disorder, recurrent severe without psychotic features Assessment and Plan: Increase Paxil to 10 mg daily. Remeron 7.5 mg HS Discontinue Prozac/Trazodone (3) HTN (hypertension): Status: Acute Code(s): I10 - Essential (primary) hypertension Assessment and Plan: -Increase Amlodipine to 5 mg daily. Greater than 50% of the session was spent on counseling and/or coordination of care Reason for contiued inpatient stay Substantial Risk for: harm to self, inability to function, rapid decompensation and med/psych decompensation
[2020-07-08 15:42] VITALS: BP 158/88; PULSE 98; RESP 18; O2SAT 96
[2020-07-08] MEDS: LORazepam 1 MG TABLET PO (15:43)
[2020-07-08 16:45] VITALS: BP 129/76; PULSE 92; TEMP 37
[2020-07-08 16:52] VITALS: BP 129/76; PULSE 92
[2020-07-08] MEDS: amLODIPine Besylate 5 MG TABLET PO (16:52)
[2020-07-08] MEDS: Mirtazapine 7.5 MG TABLET PO (20:01)
[2020-07-08] MEDS: clonazePAM 0.5 MG TABLET 0.25 MG PO (20:01)
[2020-07-09 06:15] VITALS: BP 139/74; PULSE 84; RESP 16; TEMP 36.9; O2SAT 96
[2020-07-09] MEDS: LORazepam 1 MG TABLET PO ×2 (06:59→17:01)
[2020-07-09 08:28] LABS: Estimated Average Glucose 111 mg/dL; Hemoglobin A1c % 5.5 %
[2020-07-09 08:36] LABS: Cholesterol 191 mg/dL; Glucose Fasting 91 mg/dL (60-99); HDL Cholesterol 50 mg/dL; LDL Cholesterol Calculated 122 mg/dl; Triglycerides 99 mg/dL
[2020-07-09] MEDS: Aspirin 81 MG TAB.CHEW PO (09:18)
[2020-07-09] MEDS: Cholecalciferol (Vitamin D3) 10 MCG TABLET PO ×2 (09:18→19:58)
[2020-07-09] MEDS: PARoxetine HCL 10 MG TABLET PO (09:18)
[2020-07-09] MEDS: clonazePAM 0.5 MG TABLET 0.25 MG PO ×2 (09:19→19:58)
--- NOTE | 2020-07-09 14:29 | PC.NURSE ---
Pt participated in [facility] screen on this date, scored 24/30 indicating mild cognitive impairment. AREA MECHANIC and nurse made aware
--- NOTE | 2020-07-09 16:17 | HO.PSYCHPN ---
Subjective Subjective Date of Service: 07/09/20 Reason For Visit: med reaction? Subjective Notes: Conditional Voluntary Interim History: Reports some relief of anxiety, tolerating medicine changes. Paxil withdrawal effects are gone-pt able to ambulate, no vertigo, no headache. BP improved with Amlodipine increase 139/74-pt tolerating increase. Reports she was able to sleep. A1C 5.5, Av. Glucose 111, FBS 91. Discussed increase in anxiety when son is at home. Talked with daughter this a.m. and finds this a support. Completed MOCA with Monica Argueta OTR/L , scored . Medication Compliance: Yes Side effects from medications: No Attending Groups: Yes Review of Systems Psychiatric: Reports anxiety, Reports depression, Reports difficulty concentrating, Reports hopelessness, Reports anhedonia, Reports panic attacks and Reports suicidal ideation Mental Status Exam Mental Status Exam Patient Appearance: Appropriate Patient Orientation: Person, Place, Time and Situation Level of Consciousness: Awake and Alert Patient Behavior: Talkative, Anxious, Fearful, Fatigued and Good Eye Contact Mood Description: Depressed and Anxious Affect Description: Flat Patient Cognition Impaired: No Ability to Follow Directions: Good Speech Pattern: Clear, Appropriate and Spontaneous Speech Memory Description: Intact Hallucinations: None Delusions: Not Present Thought Process: Goal Oriented Thought Content: positive for Goal Oriented and positive for Suicidal Ideation Depressive Symptoms: Increased Anxiety, Insomnia, Diff. Making Decisions, Difficulty Sleeping, Loss of Int. in Activity, Feelings of Worthlessness, Hopelessness, Isolating-Friends/Family, Feelings of Guilt, Increased Fatigue, Thoughts of /Suicide, Low Self Esteem, Loss of Energy and Difficulty Concentrating Judgement: Good Diagnostics Vital Signs (24Hr): Vital Signs - 24 hr 07/08/20 16:45 07/08/20 16:52 07/09/20 06:15 Temperature 98.6 F 98.5 F Pulse Rate 92 92 84 Respiratory Rate 16 Blood Pressure 129/76 129/76 139/74 Pulse Oximetry 96 Body Mass Index 26.4 Labs Results: 07/05/20 13:52 07/05/20 13:52 Labs: Laboratory Results - last 48 hr 07/09/20 07/09/20 07:53 07:53 Fasting Glucose 91 Estimat Average Glucose 111 Hemoglobin A1c % 5.5 Triglycerides 99 Cholesterol 191 LDL Cholesterol, Calc 122 HDL Cholesterol 50 Medications Medications Current Medications Generic Name Dose Route Start Last Admin Trade Name Freq PRN Reason Stop Dose Admin Acetaminophen 650 mg 07/06/20 16:24 Acetaminophen 325 Mg Tablet PO Q6H PRN Headache/Pain Mild Scale (1-3) Al Hydroxide/Mg Hydroxide 30 ml 07/06/20 16:24 Magnesium Hydrox/Alum Hydrox 30 Ml Oral.Susp PO Q6H PRN Heartburn/Nausea Amlodipine Besylate 5 mg 07/08/20 17:00 07/08/20 16:52 Amlodipine Besylate 5 Mg Tablet PO 5 mg 1700 MARTY Administration Protocol Aspirin 81 mg 07/06/20 09:00 07/09/20 09:18 Aspirin 81 Mg Tab.Chew PO 81 mg DAILY MARTY Administration Clonazepam 0.25 mg 07/08/20 21:00 07/09/20 09:19 Clonazepam 0.5 Mg Tablet PO 0.25 mg BID MARTY Administration Hydroxyzine HCl 25 mg 07/06/20 16:24 Hydroxyzine Hcl 25 Mg Tablet PO BEDTIME PRN Anxiety Lorazepam 1 mg 07/06/20 16:27 07/09/20 06:59 Lorazepam 1 Mg Tablet PO 1 mg Q4H PRN Administration Anxiety Magnesium Hydroxide 30 ml 07/06/20 16:24 Milk Of Magnesia 30 Ml Oral.Susp PO DAILY PRN Constipation Mirtazapine 7.5 mg 07/08/20 21:00 07/08/20 20:01 Mirtazapine 7.5 Mg Tablet PO 7.5 mg BEDTIME MARTY Administration Paroxetine HCl 10 mg 07/08/20 09:00 07/09/20 09:18 Paroxetine Hcl 10 Mg Tablet PO 10 mg DAILY MARTY Administration Vitamin D 10 mcg 07/05/20 21:00 07/09/20 09:18 Cholecalciferol (Vitamin D3) 10 Mcg Tablet PO 10 mcg BID MARTY Administration Allergies Allergies Allergy/AdvReac Type Severity Reaction Status Date / Time Penicillins AdvReac Rash Verified 06/23/20 03:59 Assessment & Plan Assessment & Plan (1) Generalized anxiety disorder: Status: Acute Code(s): F41.1 - Generalized anxiety disorder Assessment and Plan: Klonopin 0.25 mg bid Lorazepam prn until Klonopin is more effective Symptoms appear to have a strong situational component. Pt is looking to make a change in her living situation. (2) Recurrent major depression-severe: Status: Acute Code(s): F33.2 - Major depressive disorder, recurrent severe without psychotic features Assessment and Plan: Paxil 10 mg daily. Hx of use since 2006-severe withdrawal when I met pt in the ER. Will taper when sx are improved, slowly-this may need to wait until pt is working with OP team. Remeron 7.5 mg HS (3) HTN (hypertension): Status: Acute Code(s): I10 - Essential (primary) hypertension Assessment and Plan: -Increase Amlodipine to 5 mg daily. Greater than 50% of the session was spent on counseling and/or coordination of care Reason for contiued inpatient stay Substantial Risk for: harm to self, inability to function and rapid decompensation
[2020-07-09 17:10] VITALS: BP 134/65; PULSE 85; TEMP 36.8
[2020-07-09 17:25] VITALS: BP 136/64; PULSE 80
[2020-07-09] MEDS: amLODIPine Besylate 5 MG TABLET PO (17:25)
[2020-07-09] MEDS: Mirtazapine 7.5 MG TABLET PO (19:58)
[2020-07-10 06:00] VITALS: BP 132/76; PULSE 96; RESP 18; TEMP 36.6; O2SAT 98
[2020-07-10] MEDS: Aspirin 81 MG TAB.CHEW PO (08:45)
[2020-07-10] MEDS: Cholecalciferol (Vitamin D3) 10 MCG TABLET PO ×2 (08:45→20:17)
[2020-07-10] MEDS: clonazePAM 0.5 MG TABLET 0.25 MG PO ×2 (08:45→20:16)
[2020-07-10] MEDS: PARoxetine HCL 10 MG TABLET PO (08:46)
--- NOTE | 2020-07-10 08:58 | HO.PSYCHPN ---
Subjective Subjective Date of Service: 07/10/20 Reason For Visit: med reaction? Interim History: Chart reviewed; case discussed with team. Vitals reviewed: WnL Pt reports her depression is not so bad and that it's gotten less troublesome. She says she still feels tired much of the day, though not sure why. Director Stars discussed changing scheduled clonazepam to PRN but patient does not want to make any changes without first talking with primary team provider. She asked if it was ok to take naps, to which junior technical writer said it was, while also encouraging patient to push her self to engage with others, groups. Medication Compliance: Yes Side effects from medications: No Attending Groups: Yes (went to one group) Mental Status Exam Mental Status Exam Narrative: Appearance: Appropriate Patient Orientation: Person, Place, Time and Situation Level of Consciousness: Awake and Alert Patient Behavior: calm, cooperative, Good Eye Contact Mood Description: Depressed and Anxious Affect Description: congruent Patient Cognition Impaired: No Ability to Follow Directions: Good Speech Pattern: Clear, Appropriate and Spontaneous Speech Memory Description: Intact Hallucinations: None Delusions: Not Present Thought Process: Goal Oriented Thought Content: denies SI; talking about treatment Judgement: Good Diagnostics Vital Signs (24Hr): Vital Signs - 24 hr 07/09/20 17:10 07/09/20 17:25 07/10/20 06:00 Temperature 98.2 F 98 F Pulse Rate 85 80 96 Respiratory Rate 18 Blood Pressure 134/65 136/64 132/76 Pulse Oximetry 98 Body Mass Index 26.4 Labs Results: 07/05/20 13:52 07/05/20 13:52 Labs: Laboratory Results - last 48 hr 07/09/20 07/09/20 07:53 07:53 Fasting Glucose 91 Estimat Average Glucose 111 Hemoglobin A1c % 5.5 Triglycerides 99 Cholesterol 191 LDL Cholesterol, Calc 122 HDL Cholesterol 50 Medications Medications Current Medications Generic Name Dose Route Start Last Admin Trade Name Freq PRN Reason Stop Dose Admin Acetaminophen 650 mg 07/06/20 16:24 Acetaminophen 325 Mg Tablet PO Q6H PRN Headache/Pain Mild Scale (1-3) Al Hydroxide/Mg Hydroxide 30 ml 07/06/20 16:24 Magnesium Hydrox/Alum Hydrox 30 Ml Oral.Susp PO Q6H PRN Heartburn/Nausea Amlodipine Besylate 5 mg 07/08/20 17:00 07/09/20 17:25 Amlodipine Besylate 5 Mg Tablet PO 5 mg 1700 MARTY Administration Protocol Aspirin 81 mg 07/06/20 09:00 07/10/20 08:45 Aspirin 81 Mg Tab.Chew PO 81 mg DAILY MARTY Administration Clonazepam 0.25 mg 07/08/20 21:00 07/10/20 08:45 Clonazepam 0.5 Mg Tablet PO 0.25 mg BID MARTY Administration Hydroxyzine HCl 25 mg 07/06/20 16:24 Hydroxyzine Hcl 25 Mg Tablet PO BEDTIME PRN Anxiety Lorazepam 1 mg 07/06/20 16:27 07/09/20 17:01 Lorazepam 1 Mg Tablet PO 1 mg Q4H PRN Administration Anxiety Magnesium Hydroxide 30 ml 07/06/20 16:24 Milk Of Magnesia 30 Ml Oral.Susp PO DAILY PRN Constipation Mirtazapine 7.5 mg 07/08/20 21:00 07/09/20 19:58 Mirtazapine 7.5 Mg Tablet PO 7.5 mg BEDTIME MARTY Administration Paroxetine HCl 10 mg 07/08/20 09:00 07/10/20 08:46 Paroxetine Hcl 10 Mg Tablet PO 10 mg DAILY MARTY Administration Vitamin D 10 mcg 07/05/20 21:00 07/10/20 08:45 Cholecalciferol (Vitamin D3) 10 Mcg Tablet PO 10 mcg BID MARTY Administration Allergies Allergies Allergy/AdvReac Type Severity Reaction Status Date / Time Penicillins AdvReac Rash Verified 06/23/20 03:59 Assessment & Plan Assessment & Plan (1) Generalized anxiety disorder: Status: Acute Code(s): F41.1 - Generalized anxiety disorder Assessment and Plan: Klonopin 0.25 mg bid Lorazepam prn until Klonopin is more effective Symptoms appear to have a strong situational component. Pt is looking to make a change in her living situation. (2) Recurrent major depression-severe: Status: Acute Code(s): F33.2 - Major depressive disorder, recurrent severe without psychotic features Assessment and Plan: Paxil 10 mg daily. Hx of use since 2006-severe withdrawal when I met pt in the ER. Will taper when sx are improved, slowly-this may need to wait until pt is working with OP team. Remeron 7.5 mg HS (3) HTN (hypertension): Status: Acute Code(s): I10 - Essential (primary) hypertension Assessment and Plan: -Increase Amlodipine to 5 mg daily. Pt stable; depressed but pt reports improved symptoms continue current tx plan Greater than 50% of the session was spent on counseling and/or coordination of care Reason for contiued inpatient stay Substantial Risk for: med/psych decompensation
[2020-07-10] MEDS: LORazepam 1 MG TABLET PO ×2 (13:29→20:29)
[2020-07-10 16:44] VITALS: BP 128/72; PULSE 101
[2020-07-10] MEDS: amLODIPine Besylate 5 MG TABLET PO (16:44)
[2020-07-10 17:23] VITALS: BP 128/72; PULSE 101; RESP 16; TEMP 36.4; O2SAT 98
[2020-07-10] MEDS: Mirtazapine 7.5 MG TABLET PO (20:17)
[2020-07-11 06:00] VITALS: BP 119/73; PULSE 81; RESP 16; TEMP 36.6; O2SAT 97
[2020-07-11] MEDS: PARoxetine HCL 10 MG TABLET PO (08:08)
[2020-07-11] MEDS: clonazePAM 0.5 MG TABLET 0.25 MG PO ×2 (08:08→20:19)
[2020-07-11] MEDS: Aspirin 81 MG TAB.CHEW PO (08:08)
[2020-07-11] MEDS: Cholecalciferol (Vitamin D3) 10 MCG TABLET PO ×2 (08:09→20:19)
[2020-07-11] MEDS: LORazepam 1 MG TABLET PO ×3 (08:10→21:53)
--- NOTE | 2020-07-11 11:36 | HO.PSYCHPN ---
Subjective Subjective Date of Service: 07/11/20 Reason For Visit: med reaction? Interim History: Chart reviewed; case discussed with team. Vitals reviewed: grossly wnl pt remains with better mood; intermittent SI but not so much and says she has hope that symptoms will get better. Reports some trouble swallowing medications, though no problem swallowing food and water, and agrees that it might just be due to anxiety. Still some anxiety. Otherwise, no complaints Mental Status Exam Mental Status Exam Narrative: Appearance: Appropriate Patient Orientation: Person, Place, Time and Situation Level of Consciousness: Awake and Alert Patient Behavior: calm, cooperative, Good Eye Contact Mood Description: Depressed and Anxious Affect Description: congruent Patient Cognition Impaired: No Ability to Follow Directions: Good Speech Pattern: Clear, Appropriate and Spontaneous Speech Memory Description: Intact Hallucinations: None Delusions: Not Present Thought Process: Goal Oriented Thought Content: some passive, SI; talking about treatment Judgement: Good Diagnostics Vital Signs (24Hr): Vital Signs - 24 hr 07/10/20 16:44 07/10/20 17:23 07/11/20 06:00 Temperature 97.6 F 97.9 F Pulse Rate 101 H 101 H 81 Respiratory Rate 16 16 Blood Pressure 128/72 128/72 119/73 Pulse Oximetry 98 97 Body Mass Index 26.4 Labs Results: 07/05/20 13:52 07/05/20 13:52 Medications Medications Current Medications Generic Name Dose Route Start Last Admin Trade Name Freq PRN Reason Stop Dose Admin Acetaminophen 650 mg 07/06/20 16:24 Acetaminophen 325 Mg Tablet PO Q6H PRN Headache/Pain Mild Scale (1-3) Al Hydroxide/Mg Hydroxide 30 ml 07/06/20 16:24 Magnesium Hydrox/Alum Hydrox 30 Ml Oral.Susp PO Q6H PRN Heartburn/Nausea Amlodipine Besylate 5 mg 07/08/20 17:00 07/10/20 16:44 Amlodipine Besylate 5 Mg Tablet PO 5 mg 1700 MARTY Administration Protocol Aspirin 81 mg 07/06/20 09:00 07/11/20 08:08 Aspirin 81 Mg Tab.Chew PO 81 mg DAILY MARTY Administration Clonazepam 0.25 mg 07/08/20 21:00 07/11/20 08:08 Clonazepam 0.5 Mg Tablet PO 0.25 mg BID MARTY Administration Hydroxyzine HCl 25 mg 07/06/20 16:24 Hydroxyzine Hcl 25 Mg Tablet PO BEDTIME PRN Anxiety Lorazepam 1 mg 07/06/20 16:27 07/11/20 08:10 Lorazepam 1 Mg Tablet PO 1 mg Q4H PRN Administration Anxiety Magnesium Hydroxide 30 ml 07/06/20 16:24 Milk Of Magnesia 30 Ml Oral.Susp PO DAILY PRN Constipation Mirtazapine 7.5 mg 07/08/20 21:00 07/10/20 20:17 Mirtazapine 7.5 Mg Tablet PO 7.5 mg BEDTIME MARTY Administration Paroxetine HCl 10 mg 07/08/20 09:00 07/11/20 08:08 Paroxetine Hcl 10 Mg Tablet PO 10 mg DAILY MARTY Administration Vitamin D 10 mcg 07/05/20 21:00 07/11/20 08:09 Cholecalciferol (Vitamin D3) 10 Mcg Tablet PO 10 mcg BID MARTY Administration Allergies Allergies Allergy/AdvReac Type Severity Reaction Status Date / Time Penicillins AdvReac Rash Verified 06/23/20 03:59 Assessment & Plan Assessment & Plan (1) Generalized anxiety disorder: Status: Acute Code(s): F41.1 - Generalized anxiety disorder Assessment and Plan: Klonopin 0.25 mg bid Lorazepam prn until Klonopin is more effective Symptoms appear to have a strong situational component. Pt is looking to make a change in her living situation. (2) Recurrent major depression-severe: Status: Acute Code(s): F33.2 - Major depressive disorder, recurrent severe without psychotic features Assessment and Plan: Paxil 10 mg daily. Hx of use since 2006-severe withdrawal when I met pt in the ER. Will taper when sx are improved, slowly-this may need to wait until pt is working with OP team. Remeron 7.5 mg HS (3) HTN (hypertension): Status: Acute Code(s): I10 - Essential (primary) hypertension Assessment and Plan: -Increase Amlodipine to 5 mg daily. Pt stable; depressed but pt reports improved symptoms continue current tx plan Greater than 50% of the session was spent on counseling and/or coordination of care Reason for contiued inpatient stay Substantial Risk for: med/psych decompensation
[2020-07-11 16:48] VITALS: BP 141/73; PULSE 81
[2020-07-11] MEDS: amLODIPine Besylate 5 MG TABLET PO (16:48)
[2020-07-11 17:08] VITALS: BP 144/69; PULSE 85; RESP 16; TEMP 36.4; O2SAT 98
[2020-07-11] MEDS: Mirtazapine 7.5 MG TABLET PO (20:19)
[2020-07-12 06:55] VITALS: BP 122/62; PULSE 76; RESP 16; TEMP 36.8; O2SAT 95
[2020-07-12] MEDS: clonazePAM 0.5 MG TABLET 0.25 MG PO (08:41)
[2020-07-12] MEDS: Aspirin 81 MG TAB.CHEW PO (08:41)
[2020-07-12] MEDS: Cholecalciferol (Vitamin D3) 10 MCG TABLET PO ×2 (08:41→20:00)
[2020-07-12] MEDS: PARoxetine HCL 10 MG TABLET PO (08:41)
[2020-07-12] MEDS: risperiDONE 0.5 MG TABLET PO ×2 (13:06→20:00)
--- NOTE | 2020-07-12 14:34 | P.PNPSI_ITS ---
Subjective Subjective Date of Service: 07/12/20 Reason For Visit: med reaction? Subjective Notes: Conditional Voluntary Interim History: Reports feeling like I am going in the wrong direction. Sx of anxiety, panic, unable to feel grounded, not thinking clearly, not knowing how to manage. Fears decision making. I have been like this for so long that I think I have lost a lot-too much to catch up. Wanting medicine to work immediately. Denies SE, Paxil withdrawl sx subsided. Team reports pt has approached them seven times in an hour for Lorzazepam prn. Reports sleep and appetite are adequate, denies SI, great anxiety regarding where she will live. States son is able to care for himself and she is going to worry about herself now. Medication Compliance: Yes Side effects from medications: No Attending Groups: Intermittent Review of Systems Review of Systems Yes all other systems are reviewed and are negative Reports behavioral changes and Reports confusion Psychiatric: Reports anxiety, Reports behavioral changes, Reports confusion, Rep orts depression, Reports difficulty concentrating, Reports hopelessness, Reports irritability, Reports anhedonia, Reports panic attacks and Reports suicidal ideation (denies today) Mental Status Exam Mental Status Exam Patient Appearance: Fatigued and Disheveled Patient Orientation: Person, Place, Time and Situation Level of Consciousness: Awake and Alert Patient Behavior: Dependent, Talkative, Cooperative, Passive, Suspicious, Restless, Anxious, Fearful, Fatigued, Distractible and Good Eye Contact Mood Description: Anxious Affect Description: Anxious Patient Cognition Impaired: No Ability to Follow Directions: Good Speech Pattern: Perseverating, Spontaneous Speech and Soft-Spoken Memory Description: Episodic Impaired Hallucinations: None Delusions: Not Present Thought Process: Distracted and Rumination Thought Content: positive for [place], positive for Perseveration, positive for Thought Blocking (?) and positive for Suicidal Ideation (denies) Depressive Symptoms: Increased Anxiety, Diff. Making Decisions, Increased Ir ritability, Loss of Int. in Activity, Feelings of Worthlessness, Hopelessness, Unexplained Headaches (resolved), Unhappiness, Increased Fatigue, Thoughts of /Suicide (denies), Low Self Esteem, Loss of Energy and Difficulty Concentrating Judgement: Fair Diagnostics Vital Signs (24Hr): Vital Signs - 24 hr 07/11/20 16:48 07/11/20 17:08 07/12/20 06:55 Temperature 97.5 F 98.3 F Pulse Rate 81 85 76 Respiratory Rate 16 16 Blood Pressure 141/73 H 144/69 H 122/62 Pulse Oximetry 98 95 Body Mass Index 26.4 Labs Results: 07/05/20 13:52 07/05/20 13:52 Medications Medications Current Medications Generic Name Dose Route Start Last Admin Trade Name Freq PRN Reason Stop Dose Admin Acetaminophen 650 mg 07/06/20 16:24 Acetaminophen 325 Mg Tablet PO Q6H PRN Headache/Pain Mild Scale (1-3) Al Hydroxide/Mg Hydroxide 30 ml 07/06/20 16:24 Magnesium Hydrox/Alum Hydrox 30 Ml Oral.Susp PO Q6H PRN Heartburn/Nausea Amlodipine Besylate 5 mg 07/08/20 17:00 07/11/20 16:48 Amlodipine Besylate 5 Mg Tablet PO 5 mg 1700 MARTY Administration Protocol Aspirin 81 mg 07/06/20 09:00 07/12/20 08:41 Aspirin 81 Mg Tab.Chew PO 81 mg DAILY MARTY Administration Hydroxyzine HCl 25 mg 07/06/20 16:24 Hydroxyzine Hcl 25 Mg Tablet PO BEDTIME PRN Anxiety Lorazepam 0.5 mg 07/12/20 15:00 Lorazepam 0.5 Mg Tablet PO TID MARTY Lorazepam 0.5 mg 07/12/20 12:28 Lorazepam 0.5 Mg Tablet PO Q8H PRN Anxiety Magnesium Hydroxide 30 ml 07/06/20 16:24 Milk Of Magnesia 30 Ml Oral.Susp PO DAILY PRN Constipation Mirtazapine 15 mg 07/12/20 21:00 Mirtazapine 15 Mg Tablet PO BEDTIME MARTY Paroxetine HCl 10 mg 07/08/20 09:00 07/12/20 08:41 Paroxetine Hcl 10 Mg Tablet PO 10 mg DAILY MARTY Administration Risperidone 0.5 mg 07/12/20 12:45 07/12/20 13:06 Risperidone 0.5 Mg Tablet PO 0.5 mg BID MARTY Administration Vitamin D 10 mcg 07/05/20 21:00 07/12/20 08:41 Cholecalciferol (Vitamin D3) 10 Mcg Tablet PO 10 mcg BID MARTY Administration Allergies Allergies Allergy/AdvReac Type Severity Reaction Status Date / Time Penicillins AdvReac Rash Verified 06/23/20 03:59 Assessment & Plan Assessment & Plan (1) Generalized anxiety disorder: Status: Acute Code(s): F41.1 - Generalized anxiety disorder Assessment and Plan: Reports an increase in sx. Discontinue Klonopin-pt finds it not helpful Lorazepam 0.5 mg tid and 0.5 mg q 8 hours prn-short term to manage sx-pt finds this to be more effective. Symptoms appear to have a strong situational component. Pt is looking to make a change in her living situation. (2) Recurrent major depression-severe: Status: Acute Code(s): F33.2 - Major depressive disorder, recurrent severe without psychotic features Assessment and Plan: Paxil 10 mg daily. Hx of use since 2006-severe withdrawal when I met pt in the ER. Will taper when sx are improved, slowly-this may need to wait until pt is working with OP team. Remeron increase to 15 mg HS-target sx-depression, panic, anxiety, PTSD sx? Risperdal 0.5 mg bid trial-target sx-thought clarity, grounding MOCA=07/09/20. (3) HTN (hypertension): Status: Acute Code(s): I10 - Essential (primary) hypertension Assessment and Plan: -Increase of Amlodipine to 5 mg daily--07/10 128/72 132/76 5 119/73, 144/69 141/73 07/12 122/62 Continue to monitor. Greater than 50% of the session was spent on counseling and/or coordination of care Patient educated on: medication risk/benefits, therapeutic strategies and medical condition Informed Consent: understands and further education needed Reason for contiued inpatient stay Substantial Risk for: harm to self, inability to function, rapid decompensation and med/psych decompensation
[2020-07-12] MEDS: LORazepam 0.5 MG TABLET PO ×2 (14:53→20:00)
[2020-07-12 17:09] VITALS: BP 138/73; PULSE 88
[2020-07-12] MEDS: amLODIPine Besylate 5 MG TABLET PO (17:09)
[2020-07-12 18:00] VITALS: BP 137/76; PULSE 91; RESP 16; TEMP 36.7; O2SAT 97
[2020-07-12] MEDS: Mirtazapine 15 MG TABLET PO (20:00)
[2020-07-13 06:40] VITALS: BP 137/65; PULSE 88; RESP 18; TEMP 36.6; O2SAT 96
[2020-07-13] MEDS: Cholecalciferol (Vitamin D3) 10 MCG TABLET PO ×2 (08:10→19:33)
[2020-07-13] MEDS: LORazepam 0.5 MG TABLET PO ×3 (08:10→19:33)
[2020-07-13] MEDS: Aspirin 81 MG TAB.CHEW PO (08:10)
[2020-07-13] MEDS: risperiDONE 0.5 MG TABLET PO ×2 (08:10→19:33)
[2020-07-13] MEDS: PARoxetine HCL 10 MG TABLET PO (08:10)
--- NOTE | 2020-07-13 14:24 | PC.NURSE ---
Pt provided with individual session with focus on task initiation, focus on activity, and task completion through use of recreational task. Pt required encouragement to participate, some anxiety noted but was pleased with activity when finished.
--- NOTE | 2020-07-13 14:28 | P.PNPSI_ITS ---
Subjective Subjective Date of Service: 07/13/20 Reason For Visit: med reaction? Subjective Notes: Conditional Voluntary Interim History: Pt reports she slept last night and is feeling less anxious, more even today. Appetite is intact. States she spoke with her therapist last evening and discussed going home with in home services for her son and is considering this as an option. Review of recent medicine [id number] of Paxil due to withdrawal effects, discontinuation of Prozac per pt request, discontinuation of Klonopin per pt request, re-titration of Lorazepam per pt request, titration of Remeron, Risperdal to address sx. Questions addressed regarding regime, SE, timing. Medication Compliance: Yes Side effects from medications: No Attending Groups: Intermittent Review of Systems Review of Systems Yes all other systems are reviewed and are negative Reports behavioral changes Psychiatric: Reports anxiety, Reports behavioral changes, Reports depression, Reports difficulty concentrating, Reports hopelessness, Reports irritability, Reports anhedonia, Reports panic attacks and Reports suicidal ideation (denies) Mental Status Exam Mental Status Exam Patient Appearance: Appropriate Patient Orientation: Person, Place, Time and Situation Level of Consciousness: Alert Patient Behavior: Talkative, Anxious, Distractible and Good Eye Contact Mood Description: Anxious Affect Description: Anxious Patient Cognition Impaired: No Ability to Follow Directions: Good Speech Pattern: Clear, Appropriate, Spontaneous Speech and Coherent Memory Description: Episodic Impaired Hallucinations: None Delusions: Not Present Thought Process: Distracted and Rumination Thought Content: positive for Perseveration Depressive Symptoms: Increased Anxiety and Diff. Making Decisions Judgement: Fair Diagnostics Vital Signs (24Hr): Vital Signs - 24 hr 07/12/20 17:09 07/12/20 18:00 07/13/20 06:40 Temperature 98.1 F 97.9 F Pulse Rate 88 91 88 Respiratory Rate 16 18 Blood Pressure 138/73 137/76 137/65 Pulse Oximetry 97 96 Body Mass Index 26.4 Labs Results: 07/05/20 13:52 07/05/20 13:52 Medications Medications Current Medications Generic Name Dose Route Start Last Admin Trade Name Freq PRN Reason Stop Dose Admin Acetaminophen 650 mg 07/06/20 16:24 Acetaminophen 325 Mg Tablet PO Q6H PRN Headache/Pain Mild Scale (1-3) Al Hydroxide/Mg Hydroxide 30 ml 07/06/20 16:24 Magnesium Hydrox/Alum Hydrox 30 Ml Oral.Susp PO Q6H PRN Heartburn/Nausea Amlodipine Besylate 5 mg 07/08/20 17:00 07/12/20 17:09 Amlodipine Besylate 5 Mg Tablet PO 5 mg 1700 MARTY Administration Protocol Aspirin 81 mg 07/06/20 09:00 07/13/20 08:10 Aspirin 81 Mg Tab.Chew PO 81 mg DAILY MARTY Administration Hydroxyzine HCl 25 mg 07/06/20 16:24 Hydroxyzine Hcl 25 Mg Tablet PO BEDTIME PRN Anxiety Lorazepam 0.5 mg 07/12/20 15:00 07/13/20 14:05 Lorazepam 0.5 Mg Tablet PO 0.5 mg TID MARTY Administration Lorazepam 0.5 mg 07/12/20 12:28 Lorazepam 0.5 Mg Tablet PO Q8H PRN Anxiety Magnesium Hydroxide 30 ml 07/06/20 16:24 Milk Of Magnesia 30 Ml Oral.Susp PO DAILY PRN Constipation Mirtazapine 15 mg 07/12/20 21:00 07/12/20 20:00 Mirtazapine 15 Mg Tablet PO 15 mg BEDTIME MARTY Administration Paroxetine HCl 10 mg 07/08/20 09:00 07/13/20 08:10 Paroxetine Hcl 10 Mg Tablet PO 10 mg DAILY MARTY Administration Risperidone 0.5 mg 07/12/20 12:45 07/13/20 08:10 Risperidone 0.5 Mg Tablet PO 0.5 mg BID MARTY Administration Vitamin D 10 mcg 07/05/20 21:00 07/13/20 08:10 Cholecalciferol (Vitamin D3) 10 Mcg Tablet PO 10 mcg BID MARTY Administration Allergies Allergies Allergy/AdvReac Type Severity Reaction Status Date / Time Penicillins AdvReac Rash Verified 06/23/20 03:59 Assessment & Plan Assessment & Plan (1) Generalized anxiety disorder: Status: Acute Code(s): F41.1 - Generalized anxiety disorder Assessment and Plan: Reports an increase in sx. Lorazepam 0.5 mg tid and 0.5 mg q 8 hours prn-short term to manage sx-pt finds this to be more effective. Symptoms appear to have a strong situational component. Pt is beginning to re- negotiate with her son living at home (2) Recurrent major depression-severe: Status: Acute Code(s): F33.2 - Major depressive disorder, recurrent severe without psychotic features Assessment and Plan: Paxil 10 mg daily. Hx of use since 2006-severe withdrawal when I met pt in the ER. Will taper when sx are improved, slowly-this may need to wait until pt is working with OP team. Remeron 15 mg HS-target sx-depression, panic, anxiety, PTSD sx? Risperdal 0.5 mg bid trial-target sx-thought clarity, grounding MOCA=07/09/20. (3) HTN (hypertension): Status: Acute Code(s): I10 - Essential (primary) hypertension Assessment and Plan: -Increase of Amlodipine to 5 mg daily--07/10 128/72 132/76 07/11 119/73, 144/69 141/73 07/12 122/62 Continue to monitor. Greater than 50% of the session was spent on counseling and/or coordination of care Reason for contiued inpatient stay Substantial Risk for: harm to self, inability to function, rapid decompensation and med/psych decompensation
[2020-07-13 16:40] VITALS: BP 141/69; PULSE 82; TEMP 36.6
[2020-07-13 16:56] VITALS: BP 141/69; PULSE 82
[2020-07-13] MEDS: amLODIPine Besylate 5 MG TABLET PO (16:56)
[2020-07-13] MEDS: Mirtazapine 15 MG TABLET PO (19:33)
[2020-07-14 06:00] VITALS: BP 156/80; PULSE 65; RESP 16; TEMP 37.1; O2SAT 96
[2020-07-14] MEDS: Aspirin 81 MG TAB.CHEW PO (08:24)
[2020-07-14] MEDS: risperiDONE 0.5 MG TABLET PO ×2 (08:24→20:00)
[2020-07-14] MEDS: LORazepam 0.5 MG TABLET PO ×3 (08:24→19:59)
[2020-07-14] MEDS: Cholecalciferol (Vitamin D3) 10 MCG TABLET PO ×2 (08:24→20:00)
[2020-07-14] MEDS: PARoxetine HCL 10 MG TABLET PO (08:24)
--- NOTE | 2020-07-14 14:36 | PC.NURSE ---
Pt provided with individual OT session with focus in task initiation, attention to task and task completion. Pt appeared anxious, negative, was unable to finish recreational task and requested to meet at another time.
[2020-07-14 16:08] VITALS: BP 152/71; PULSE 78
[2020-07-14] MEDS: amLODIPine Besylate 5 MG TABLET PO (16:08)
--- NOTE | 2020-07-14 17:29 | P.PNPSI_ITS ---
Subjective Subjective Date of Service: 07/14/20 Reason For Visit: med reaction? Subjective Notes: Conditional Voluntary Interim History: Reports depression is 12/12. Wondering why meds are not working immediately. Education provided. Denies SE then reports some headache/vertigo sx intermittently. Pt not participating in process groups and has several concerns about stressors at home. Encouraged to utilize all treatment modalities to assist in managing sx and allow medications to work. Reports 8 hours sleep last night, wanting -14. Discussed what to expect with sleep and aging along with planning a regular sleep interval each night with planned daytime napping which will not interfere with rest during the night. No relief as yet. Will consider med changes if no relief by 07/16. Medication Compliance: Yes Side effects from medications: No Attending Groups: No Review of Systems Constitutional: Reports headache(s) Reports vertigo and Reports headache(s) Reports vertigo and Reports headache(s) Psychiatric: Reports anxiety, Reports depression, Reports anhedonia and Reports suicidal ideation (denies) Mental Status Exam Mental Status Exam Patient Appearance: Appropriate Patient Orientation: Person, Place, Time and Situation Level of Consciousness: Awake and Alert Patient Behavior: Talkative, Anxious and Good Eye Contact Mood Description: Depressed Affect Description: Flat Patient Cognition Impaired: No Ability to Follow Directions: Good Speech Pattern: Perseverating, Spontaneous Speech and Soft-Spoken Memory Description: Intact Hallucinations: None Delusions: Not Present Thought Process: Rumination Thought Content: positive for [place], positive for Circumstantial, positive for Perseveration and positive for Suicidal Ideation (denies) Depressive Symptoms: Increased Anxiety, Diff. Making Decisions, Loss of Int. in Activity, Hopelessness, Unhappiness, Increased Fatigue, Thoughts of /Suicide (denies) and Difficulty Concentrating Judgement: Fair Diagnostics Vital Signs (24Hr): Vital Signs - 24 hr 07/14/20 06:00 07/14/20 16:08 Temperature 98.7 F Pulse Rate 65 78 Respiratory Rate 16 Blood Pressure 156/80 H 152/71 H Pulse Oximetry 96 Body Mass Index 26.4 Labs Results: 07/05/20 13:52 07/05/20 13:52 Medications Medications Current Medications Generic Name Dose Route Start Last Admin Trade Name Freq PRN Reason Stop Dose Admin Acetaminophen 650 mg 07/06/20 16:24 Acetaminophen 325 Mg Tablet PO Q6H PRN Headache/Pain Mild Scale (1-3) Al Hydroxide/Mg Hydroxide 30 ml 07/06/20 16:24 Magnesium Hydrox/Alum Hydrox 30 Ml Oral.Susp PO Q6H PRN Heartburn/Nausea Amlodipine Besylate 5 mg 07/08/20 17:00 07/14/20 16:08 Amlodipine Besylate 5 Mg Tablet PO 5 mg 1700 MARTY Administration Protocol Aspirin 81 mg 07/06/20 09:00 07/14/20 08:24 Aspirin 81 Mg Tab.Chew PO 81 mg DAILY MARTY Administration Hydroxyzine HCl 25 mg 07/06/20 16:24 Hydroxyzine Hcl 25 Mg Tablet PO BEDTIME PRN Anxiety Lorazepam 0.5 mg 07/12/20 15:00 07/14/20 14:27 Lorazepam 0.5 Mg Tablet PO 0.5 mg TID MARTY Administration Lorazepam 0.5 mg 07/12/20 12:28 Lorazepam 0.5 Mg Tablet PO Q8H PRN Anxiety Magnesium Hydroxide 30 ml 07/06/20 16:24 Milk Of Magnesia 30 Ml Oral.Susp PO DAILY PRN Constipation Mirtazapine 15 mg 07/12/20 21:00 07/13/20 19:33 Mirtazapine 15 Mg Tablet PO 15 mg BEDTIME MARTY Administration Paroxetine HCl 10 mg 07/08/20 09:00 07/14/20 08:24 Paroxetine Hcl 10 Mg Tablet PO 10 mg DAILY MARTY Administration Risperidone 0.5 mg 07/12/20 12:45 07/14/20 08:24 Risperidone 0.5 Mg Tablet PO 0.5 mg BID MARTY Administration Vitamin D 10 mcg 07/05/20 21:00 07/14/20 08:24 Cholecalciferol (Vitamin D3) 10 Mcg Tablet PO 10 mcg BID MARTY Administration Allergies Allergies Allergy/AdvReac Type Severity Reaction Status Date / Time Penicillins AdvReac Rash Verified 06/23/20 03:59 Assessment & Plan Assessment & Plan (1) Generalized anxiety disorder: Status: Acute Code(s): F41.1 - Generalized anxiety disorder Assessment and Plan: Reports an increase in sx. Lorazepam 0.5 mg tid and 0.5 mg q 8 hours prn-short term to manage sx-pt finds this to be more effective. Symptoms appear to have a strong situational component. Pt is beginning to re- negotiate with her son living at home (2) Recurrent major depression-severe: Status: Acute Code(s): F33.2 - Major depressive disorder, recurrent severe without psychotic features Assessment and Plan: Paxil 10 mg daily. Hx of use since 2006-severe withdrawal when I met pt in the ER. Will taper when sx are improved, slowly-this may need to wait until pt is working with OP team. Remeron 15 mg HS-target sx-depression, panic, anxiety, PTSD sx? Risperdal 0.5 mg bid trial-target sx-thought clarity, grounding MOCA=07/09/20. Reports no relief yet-sleep is intact-8 hours/night; appetite is stable; pt reports thinking is clearer, but depressive sx 12/12. (3) HTN (hypertension): Status: Acute Code(s): I10 - Essential (primary) hypertension Assessment and Plan: -Increase of Amlodipine to 5 mg daily--07/10 128/72 132/76 07/11 119/73, 144/69 141/73 07/12 122/62 07/14 152/71 Continue to monitor. Greater than 50% of the session was spent on counseling and/or coordination of care Reason for contiued inpatient stay Substantial Risk for: harm to self, inability to function, rapid decompensation and med/psych decompensation
[2020-07-14 19:46] VITALS: BP 145/65; PULSE 73; RESP 16; O2SAT 99
[2020-07-14] MEDS: Mirtazapine 15 MG TABLET PO (19:59)
[2020-07-15 07:00] VITALS: BMI 26.8
[2020-07-15] MEDS: LORazepam 0.5 MG TABLET PO ×3 (09:12→20:00)
[2020-07-15] MEDS: Aspirin 81 MG TAB.CHEW PO (09:12)
[2020-07-15] MEDS: Cholecalciferol (Vitamin D3) 10 MCG TABLET PO ×2 (09:12→20:00)
[2020-07-15] MEDS: risperiDONE 0.5 MG TABLET PO ×2 (09:13→20:00)
[2020-07-15] MEDS: PARoxetine HCL 10 MG TABLET PO (09:13)
--- NOTE | 2020-07-15 11:17 | P.PNPSI_ITS ---
Subjective Subjective Date of Service: 07/15/20 Reason For Visit: med reaction? Subjective Notes: Conditional Voluntary Interim History: I am not sure but I think I feel better. Pt reports a good sound sleep, attempting to work with team in milieu, talk with her counselors in sessions and trying to go to structured groups. At this time satisfied with regime, does not want to make changes. Appears and presents with less anxiety, improved focus and clearer thought process today. Medication Compliance: Yes Side effects from medications: No (denies) Attending Groups: Intermittent Review of Systems Review of Systems Yes all other systems are reviewed and are negative Reports behavioral changes and Reports confusion Psychiatric: Reports anxiety, Reports behavioral changes, Reports confusion, Reports depression, Reports difficulty concentrating, Reports hopelessness, Repo rts anhedonia, Reports panic attacks (decreased) and Reports suicidal ideation (denies, this is gone she reports.) Mental Status Exam Mental Status Exam Patient Appearance: Appropriate Patient Orientation: Person, Place, Time and Situation Level of Consciousness: Awake and Alert Patient Behavior: Appropriate, Talkative, Cooperative, Anxious and Good Eye Contact Mood Description: Anxious Affect Description: Anxious Patient Cognition Impaired: No Ability to Follow Directions: Good Speech Pattern: Spontaneous Speech and Soft-Spoken Memory Description: Intact Hallucinations: None Delusions: Not Present Thought Process: Goal Oriented Thought Content: positive for Goal Oriented Depressive Symptoms: Increased Anxiety, Diff. Making Decisions, Loss of Int. in Activity, Feelings of Worthlessness, Hopelessness, Unhappiness, Increased Fatigue, Low Self Esteem, Loss of Energy and Difficulty Concentrating Judgement: Fair Diagnostics Vital Signs (24Hr): Vital Signs - 24 hr 07/14/20 16:08 07/14/20 19:46 Pulse Rate 78 73 Respiratory Rate 16 Blood Pressure 152/71 H 145/65 H Pulse Oximetry 99 Body Mass Index 26.4 Labs Results: 07/05/20 13:52 07/05/20 13:52 Medications Medications Current Medications Generic Name Dose Route Start Last Admin Trade Name Freq PRN Reason Stop Dose Admin Acetaminophen 650 mg 07/06/20 16:24 Acetaminophen 325 Mg Tablet PO Q6H PRN Headache/Pain Mild Scale (1-3) Al Hydroxide/Mg Hydroxide 30 ml 07/06/20 16:24 Magnesium Hydrox/Alum Hydrox 30 Ml Oral.Susp PO Q6H PRN Heartburn/Nausea Amlodipine Besylate 5 mg 07/08/20 17:00 07/14/20 16:08 Amlodipine Besylate 5 Mg Tablet PO 5 mg 1700 MARTY Administration Protocol Aspirin 81 mg 07/06/20 09:00 07/15/20 09:12 Aspirin 81 Mg Tab.Chew PO 81 mg DAILY MARTY Administration Hydroxyzine HCl 25 mg 07/06/20 16:24 Hydroxyzine Hcl 25 Mg Tablet PO BEDTIME PRN Anxiety Lorazepam 0.5 mg 07/12/20 15:00 07/15/20 09:12 Lorazepam 0.5 Mg Tablet PO 0.5 mg TID MARTY Administration Lorazepam 0.5 mg 07/12/20 12:28 Lorazepam 0.5 Mg Tablet PO Q8H PRN Anxiety Magnesium Hydroxide 30 ml 07/06/20 16:24 Milk Of Magnesia 30 Ml Oral.Susp PO DAILY PRN Constipation Mirtazapine 15 mg 07/12/20 21:00 07/14/20 19:59 Mirtazapine 15 Mg Tablet PO 15 mg BEDTIME MARTY Administration Paroxetine HCl 10 mg 07/08/20 09:00 07/15/20 09:13 Paroxetine Hcl 10 Mg Tablet PO 10 mg DAILY MARTY Administration Risperidone 0.5 mg 07/12/20 12:45 07/15/20 09:13 Risperidone 0.5 Mg Tablet PO 0.5 mg BID MARTY Administration Vitamin D 10 mcg 07/05/20 21:00 07/15/20 09:12 Cholecalciferol (Vitamin D3) 10 Mcg Tablet PO 10 mcg BID MARTY Administration Allergies Allergies Allergy/AdvReac Type Severity Reaction Status Date / Time Penicillins AdvReac Rash Verified 06/23/20 03:59 Assessment & Plan Assessment & Plan (1) Generalized anxiety disorder: Status: Acute Code(s): F41.1 - Generalized anxiety disorder Assessment and Plan: Reports an increase in sx. Lorazepam 0.5 mg tid and 0.5 mg q 8 hours prn-short term to manage sx-pt finds this to be more effective. Symptoms appear to have a strong situational component. Pt is beginning to re- negotiate with her son living at home (2) Recurrent major depression-severe: Status: Acute Code(s): F33.2 - Major depressive disorder, recurrent severe without psychotic features Assessment and Plan: Paxil 10 mg daily. Hx of use since 2006-severe withdrawal when I met pt in the ER. Will taper when sx are improved, slowly-this may need to wait until pt is working with OP team. Remeron 15 mg HS-target sx-depression, panic, anxiety, PTSD sx? Risperdal 0.5 mg bid trial-target sx-thought clarity, grounding MOCA=07/09/20. Reports no relief yet-sleep is intact-8 hours/night; appetite is stable; pt reports thinking is clearer, but depressive sx 12/12. (3) HTN (hypertension): Status: Acute Code(s): I10 - Essential (primary) hypertension Assessment and Plan: -Increase of Amlodipine to 5 mg daily--07/10 128/72 132/76 07/11 119/73, 144/69 141/73 07/12 122/62 07/14 152/71 07/15 153/71 Continue to monitor. Greater than 50% of the session was spent on counseling and/or coordination of care Reason for contiued inpatient stay Substantial Risk for: harm to self, inability to function, rapid decompensation and med/psych decompensation
[2020-07-15 16:21] VITALS: BP 148/66; PULSE 78; TEMP 36.8
[2020-07-15 16:56] VITALS: BP 153/71; PULSE 82
[2020-07-15] MEDS: amLODIPine Besylate 5 MG TABLET PO (16:56)
[2020-07-15] MEDS: Mirtazapine 15 MG TABLET PO (20:00)
[2020-07-16 06:10] VITALS: BP 133/63; PULSE 92; RESP 16; TEMP 36.8; O2SAT 95
[2020-07-16] MEDS: Aspirin 81 MG TAB.CHEW PO (09:07)
[2020-07-16] MEDS: Cholecalciferol (Vitamin D3) 10 MCG TABLET PO ×2 (09:07→20:04)
[2020-07-16] MEDS: LORazepam 0.5 MG TABLET PO ×3 (09:07→20:04)
[2020-07-16] MEDS: PARoxetine HCL 10 MG TABLET PO (09:08)
[2020-07-16] MEDS: risperiDONE 0.5 MG TABLET PO (09:08)
--- NOTE | 2020-07-16 15:30 | P.PNPSI_ITS ---
Subjective Subjective Date of Service: 07/16/20 Reason For Visit: med reaction? Subjective Notes: Conditional Voluntary Interim History: Pt and team report no improvement in symptoms. Pt reports it was difficult to fall asleep and she had strange dreams last night. She asks to change regime. Discussed returning to [employer]-she said that did not work in the week she took it, discussed increasing Paxil-reports she by history took one added dose and did not feel well so she does not believe it will work as well. Education provided regarding the timing it takes most psychotropic medications to take effect. Discussed some of her current stressors that she is not talking about including son wanting to sell the home. Pt would like to remain in her home. Discussed how these stressors can increase symptoms. Medication Compliance: Yes Side effects from medications: Yes Attending Groups: Intermittent Review of Systems Psychiatric: Reports abnormal sleep pattern, Reports anxiety, Reports depression, Reports difficulty concentrating, Reports hopelessness, Reports anhedonia, Reports panic attacks and Reports suicidal ideation (denies) Mental Status Exam Mental Status Exam Patient Appearance: Appropriate Patient Orientation: Person, Place, Time and Situation Level of Consciousness: Awake and Alert Patient Behavior: Appropriate, Dependent, Talkative, Cooperative, Anxious, Fatigued, Distractible and Good Eye Contact Mood Description: Depressed and Anxious Affect Description: Depressed and Anxious Patient Cognition Impaired: No Ability to Follow Directions: Good Speech Pattern: Perseverating and Spontaneous Speech Memory Description: Intact Hallucinations: None Delusions: Not Present Thought Process: Rumination Thought Content: positive for Per[place] Depressive Symptoms: Increased Anxiety, Diff. Making Decisions, Difficulty Sleeping, Increased Fatigue and Difficulty Concentrating Judgement: Fair Diagnostics Vital Signs (24Hr): Vital Signs - 24 hr 07/15/20 16:21 07/15/20 16:56 07/16/20 06:10 Temperature 98.3 F 98.2 F Pulse Rate 78 82 92 Respiratory Rate 16 Blood Pressure 148/66 H 153/71 H 133/63 Pulse Oximetry 95 Body Mass Index 26.8 Labs Results: 07/05/20 13:52 07/05/20 13:52 Medications Medications Current Medications Generic Name Dose Route Start Last Admin Trade Name Freq PRN Reason Stop Dose Admin Acetaminophen 650 mg 07/06/20 16:24 Acetaminophen 325 Mg Tablet PO Q6H PRN Headache/Pain Mild Scale (1-3) Al Hydroxide/Mg Hydroxide 30 ml 07/06/20 16:24 Magnesium Hydrox/Alum Hydrox 30 Ml Oral.Susp PO Q6H PRN Heartburn/Nausea Amlodipine Besylate 5 mg 07/08/20 17:00 07/15/20 16:56 Amlodipine Besylate 5 Mg Tablet PO 5 mg 1700 MARTY Administration Protocol Aripiprazole 2 mg 07/17/20 09:00 Aripiprazole 2 Mg Tablet PO DAILY MARTY Aspirin 81 mg 07/06/20 09:00 07/16/20 09:07 Aspirin 81 Mg Tab.Chew PO 81 mg DAILY MARTY Administration Escitalopram Oxalate 5 mg 07/17/20 09:00 Escitalopram Oxalate 5 Mg Tablet PO DAILY MARTY Hydroxyzine HCl 25 mg 07/06/20 16:24 Hydroxyzine Hcl 25 Mg Tablet PO BEDTIME PRN Anxiety Lorazepam 0.5 mg 07/12/20 15:00 07/16/20 14:31 Lorazepam 0.5 Mg Tablet PO 0.5 mg TID MARTY Administration Lorazepam 0.5 mg 07/12/20 12:28 Lorazepam 0.5 Mg Tablet PO Q8H PRN Anxiety Magnesium Hydroxide 30 ml 07/06/20 16:24 Milk Of Magnesia 30 Ml Oral.Susp PO DAILY PRN Constipation Mirtazapine 7.5 mg 07/16/20 21:00 Mirtazapine 7.5 Mg Tablet PO 07/17/20 20:00 BEDTIME MARTY Mirtazapine 3.75 mg 07/18/20 21:00 Mirtazapine 7.5 Mg Tablet PO 07/19/20 21:00 BEDTIME MARTY Paroxetine HCl 10 mg 07/08/20 09:00 07/16/20 09:08 Paroxetine Hcl 10 Mg Tablet PO 10 mg DAILY MARTY Administration Trazodone HCl 25 mg 07/16/20 15:22 Trazodone Hcl 25 Mg Halftab PO BEDTIME PRN Insomnia Vitamin D 10 mcg 07/05/20 21:00 07/16/20 09:07 Cholecalciferol (Vitamin D3) 10 Mcg Tablet PO 10 mcg BID MARTY Administration Allergies Allergies Allergy/AdvReac Type Severity Reaction Status Date / Time Penicillins AdvReac Rash Verified 06/23/20 03:59 Assessment & Plan Assessment & Plan (1) Generalized anxiety disorder: Status: Acute Code(s): F41.1 - Generalized anxiety disorder Assessment and Plan: Reports an increase in sx. Lorazepam 0.5 mg tid and 0.5 mg q 8 hours prn-short term to manage sx-pt finds this to be more effective. Symptoms appear to have a strong situational component. Pt is beginning to re- negotiate with her son living at home (2) Recurrent major depression-severe: Status: Acute Code(s): F33.2 - Major depressive disorder, recurrent severe without psychotic features Assessment and Plan: Paxil 10 mg daily. Hx of use since 2006-severe withdrawal when I met pt in the ER. Will taper when sx are improved, slowly-this may need to wait until pt is working with OP team. Pt reports regime to be ineffective. Discontinue Remeron. Remeron 7.5 mg HS for two nights then 3.75 mg HS for two nights then discontinue. Discontinue Risperdal Trazodone 25 mg HS prn Lexapro 5 mg am Ability 2 mg am MOCA=07/09/20. (3) HTN (hypertension): Status: Acute Code(s): I10 - Essential (primary) hypertension Assessment and Plan: -Increase of Amlodipine to 5 mg daily--07/10 128/72 132/76 5 119/73, 144/69 141/73 07/12 122/62 07/14 152/71 07/15 153/71 07/16 133/63 Continue to monitor. Greater than 50% of the session was spent on counseling and/or coordination of care Reason for contiued inpatient stay Substantial Risk for: harm to self, inability to function, rapid decompensation and med/psych decompensation
--- NOTE | 2020-07-16 16:50 | P.EN_ITS ---
Event Note Date of Service: 07/16/20 Event Note: 07/16/20 1650-Pt asked to meet. Continues with doubts about medicat ions, perseverative. Has read pharmacy monographs given by team, believes she will have side effects. Discussed simplification of regime, as medicines appear to be a trigger to symptom exacerbation. Pt has unrealistic expectations and ideas about medication, which persist with education. No recall after discussion this a.m. with pt about target symptoms, changes to help decrease symptoms Plan: Discontinue Abilify, Escitalopram, Hydroxyzine-pt has never taken these. Discontinue Risperdal as stated earlier today. Discontinue Remeron-pt had requested a taper this morning as she was concerned about side effects this a.m. after a few day trial. Continue: Paxil 10 mg daily-pt has used Paxil since 2006. Lorazepam 0.5 mg tid and 0.5 mg q 8 hours prn-pt has used this since admission without issue. Trazodone 25 mg HS prn insomnia-pt has used this for a few weeks she reports without issue.
[2020-07-16 16:52] VITALS: BP 122/69; PULSE 81
[2020-07-16] MEDS: amLODIPine Besylate 5 MG TABLET PO (16:52)
[2020-07-16 19:27] VITALS: BP 138/75; PULSE 80; TEMP 37
[2020-07-16] MEDS: traZODone HCL 25 MG HALFTAB PO (20:04)
[2020-07-17] MEDS: Cholecalciferol (Vitamin D3) 10 MCG TABLET PO ×2 (09:17→19:56)
[2020-07-17] MEDS: LORazepam 0.5 MG TABLET PO ×3 (09:17→19:56)
[2020-07-17] MEDS: PARoxetine HCL 10 MG TABLET PO (09:17)
[2020-07-17] MEDS: Aspirin 81 MG TAB.CHEW PO (09:17)
--- NOTE | 2020-07-17 11:06 | P.PNPSI_ITS ---
Subjective Subjective Date of Service: 07/18/20 Reason For Visit: med reaction? Interim History: Pt reports slightly better sleep last night with trazodone compared with remeron. She reports slight improvement in anxiety but continues to present as very ruminative, unable to make decisions at times due to anxious mood and excessive worry. She denies SI/HI. She spent some time ruminating about not knowing what to do while in the unit, feeling out of place here but also most likely at home. MSE Appearance: casually groomed, fair hygiene, in NAD Behavior: calm, cooperative Psychomotor: no agitation or retardation noted Speech: clear, normal rate/rhythm/volume, spontaneous TP: circumstantial TC: no signs of psychosis, feeling anxious, hopeless Mood: anxious Affect:congruent, anxious SI:denies HI:denies AH/VH:denies Delusions:none Insight/judgment:fair x 2. Memory/cog: alert, oriented x 3. not formally tested. Review of Systems Review of Systems Constitutional: No Weight loss, No Fever, No Chills,+ Fatigue, + Malaise ENT/Mouth: No Hearing loss, No Ear Pain, No Rhinorrhea Cardiovascular: No Chest Pain, No SOB Respiratory: No Cough, No Dyspnea Gastrointestinal: No Nausea, No Vomiting, No Diarrhea, No Constipation, No Abdominal pain Genitourinary: No Dysuria, No Urinary Frequency, No Hematuria, No Flank Pain Musculoskeletal: No joint pain, No Myalgias, No Joint Swelling Skin: No Skin Lesions, No rash Neuro: + Weakness, No Numbness, No Paresthesias, No Loss of Consciousness, +Lightheadedness/ Dizziness, + Headache Psych: +Anxiety, + Depression, + SI, HI/AH/VH, No Social Issues Yes all other systems are reviewed and are negative Constitutional: Reports difficulty sleeping, Reports fatigue, Reports headache(s), Reports lethargy, Reports malaise and Reports weakness Reports vertigo, Reports dizziness, Reports headache(s), Reports odynophagia and Reports disequilibrium Gastrointestinal: Reports odynophagia and Reports other (swallowing difficulty) Musculoskeletal: Reports muscle weakness Denies Abnormal speech present, Reports behavioral changes, Reports confusion, Reports vertigo, Reports dizziness, Reports headache(s), Reports lack of coordination, Reports focal weakness, Denies Sensory deficit (Neuro), Reports disequilibrium and Reports weakness Psychiatric: Reports abnormal sleep pattern, Reports anxiety, Reports behavioral changes, Reports change in appetite, Reports confusion, Reports depression, Reports difficulty concentrating, Reports hopelessness, Reports irritability, Reports anhedonia, Reports panic attacks and Reports suicidal ideation (denies) Endocrine: Reports fatigue Diagnostics Vital Signs (24Hr): Vital Signs - 24 hr 07/17/20 16:27 Pulse Rate 81 Respiratory Rate 16 Blood Pressure 119/85 Pulse Oximetry 95 Body Mass Index 26.8 Labs Results: 07/05/20 13:52 07/05/20 13:52 Medications Medications Current Medications Generic Name Dose Route Start Last Admin Trade Name Freq PRN Reason Stop Dose Admin Acetaminophen 650 mg 07/06/20 16:24 Acetaminophen 325 Mg Tablet PO Q6H PRN Headache/Pain Mild Scale (1-3) Al Hydroxide/Mg Hydroxide 30 ml 07/06/20 16:24 Magnesium Hydrox/Alum Hydrox 30 Ml Oral.Susp PO Q6H PRN Heartburn/Nausea Amlodipine Besylate 5 mg 07/08/20 17:00 07/17/20 16:27 Amlodipine Besylate 5 Mg Tablet PO 5 mg 1700 MARTY Administration Protocol Aspirin 81 mg 07/06/20 09:00 07/18/20 09:14 Aspirin 81 Mg Tab.Chew PO 81 mg DAILY MARTY Administration Lorazepam 0.5 mg 07/12/20 15:00 07/18/20 09:14 Lorazepam 0.5 Mg Tablet PO 0.5 mg TID MARTY Administration Lorazepam 0.5 mg 07/12/20 12:28 Lorazepam 0.5 Mg Tablet PO Q8H PRN Anxiety Magnesium Hydroxide 30 ml 07/06/20 16:24 Milk Of Magnesia 30 Ml Oral.Susp PO DAILY PRN Constipation Paroxetine HCl 10 mg 07/08/20 09:00 07/18/20 09:14 Paroxetine Hcl 10 Mg Tablet PO 10 mg DAILY MARTY Administration Trazodone HCl 25 mg 07/16/20 15:22 07/17/20 19:58 Trazodone Hcl 25 Mg Halftab PO 25 mg BEDTIME PRN Administration Insomnia Vitamin D 10 mcg 07/05/20 21:00 07/18/20 09:14 Cholecalciferol (Vitamin D3) 10 Mcg Tablet PO 10 mcg BID MARTY Administration Allergies Allergies Allergy/AdvReac Type Severity Reaction Status Date / Time Penicillins AdvReac Rash Verified 06/23/20 03:59 Assessment & Plan Assessment & Plan (1) Generalized anxiety disorder: Status: Acute Code(s): F41.1 - Generalized anxiety disorder Assessment and Plan: Reports an increase in sx. Lorazepam 0.5 mg tid and 0.5 mg q 8 hours prn-short term to manage sx-pt finds this to be more effective. Symptoms appear to have a strong situational component. Pt is beginning to re- negotiate with her son living at home (2) Recurrent major depression-severe: Status: Acute Code(s): F33.2 - Major depressive disorder, recurrent severe without psychotic features Assessment and Plan: Continue per treatment team: Paxil 10 mg daily. Hx of use since 2006-severe withdrawal when I met pt in the ER. Will taper when sx are improved, slowly-this may need to wait until pt is working with OP team. Pt reports regime to be ineffective. Discontinue Remeron. Remeron 7.5 mg HS for two nights then 3.75 mg HS for two nights then discontinue. Discontinue Risperdal Trazodone 25 mg HS prn Lexapro 5 mg am Ability 2 mg am MOCA=07/09/20. (3) HTN (hypertension): Status: Acute Code(s): I10 - Essential (primary) hypertension Assessment and Plan: -Increase of Amlodipine to 5 mg daily--07/10 128/72 132/76 07/11 119/73, 144/69 141/ 73 07/12 122/62 07/14 152/71 07/15 153/71 07/16 133/63 Continue to monitor. Greater than 50% of the session was spent on counseling and/or coordination of c are Reason for contiued inpatient stay Substantial Risk for: inability to function
[2020-07-17 16:27] VITALS: BP 119/85; PULSE 81; RESP 16; O2SAT 95
[2020-07-17] MEDS: amLODIPine Besylate 5 MG TABLET PO (16:27)
[2020-07-17] MEDS: traZODone HCL 25 MG HALFTAB PO (19:58)
[2020-07-18 07:40] VITALS: BP 130/68; PULSE 70; RESP 14; TEMP 36.9; O2SAT 98
[2020-07-18] MEDS: PARoxetine HCL 10 MG TABLET PO (09:14)
[2020-07-18] MEDS: Aspirin 81 MG TAB.CHEW PO (09:14)
[2020-07-18] MEDS: LORazepam 0.5 MG TABLET PO ×3 (09:14→20:27)
[2020-07-18] MEDS: Cholecalciferol (Vitamin D3) 10 MCG TABLET PO ×2 (09:14→20:27)
--- NOTE | 2020-07-18 11:12 | P.PNPSI_ITS ---
Subjective Subjective Date of Service: 07/18/20 Reason For Visit: med reaction? Interim History: Pt presents with slightly less anxious affect today. She reports her day yesterday was not as bad as she thought it was going to be. Pt yesterday noted to excessively ruminate about what she should be doing in unit. She reports sleep is better. She denies SI/HI. However, continues to report d epressed mood, anxious mood, anhedonia, hopeless. MSE Appearance: casually groomed, fair hygiene, in NAD Behavior: calm, cooperative Psychomotor: no agitation or retardation noted Speech: clear, normal rate/rhythm/volume, spontaneous TP: circumstantial TC: no signs of psychosis, feeling anxious, hopeless Mood: anxious Affect:congruent, anxious SI:denies HI:denies AH/VH:denies Delusions:none Insight/judgment:fair x 2. Memory/cog: alert, oriented x 3. not formally tested. Review of Systems Review of Systems Constitutional: No Weight loss, No Fever, No Chills,+ Fatigue, + Malaise ENT/Mouth: No Hearing loss, No Ear Pain, No Rhinorrhea Cardiovascular: No Chest Pain, No SOB Respiratory: No Cough, No Dyspnea Gastrointestinal: No Nausea, No Vomiting, No Diarrhea, No Constipation, No Abdominal pain Genitourinary: No Dysuria, No Urinary Frequency, No Hematuria, No Flank Pain Musculoskeletal: No joint pain, No Myalgias, No Joint Swelling Skin: No Skin Lesions, No rash Neuro: + Weakness, No Numbness, No Paresthesias, No Loss of Consciousness, +Lightheadedness/ Dizziness, + Headache Psych: +Anxiety, + Depression, + SI, HI/AH/VH, No Social Issues Yes all other systems are reviewed and are negative Constitutional: Reports difficulty sleeping, Reports fatigue, Reports headache(s), Reports lethargy, Reports malaise and Reports weakness Reports vertigo, Reports dizziness, Reports headache(s), Reports odynophagia and Reports disequilibrium Gastrointestinal: Reports odynophagia and Reports other (swallowing difficulty) Musculoskeletal: Reports muscle weakness Denies Abnormal speech present, Reports behavioral changes, Reports confusion, Reports vertigo, Reports dizziness, Reports headache(s), Reports lack of coordination, Reports focal weakness, Denies Sensory deficit (Neuro), Reports disequilibrium and Reports weakness Psychiatric: Reports abnormal sleep pattern, Reports anxiety, Reports behavioral changes, Reports change in appetite, Reports confusion, Reports depression, Reports difficulty concentrating, Reports hopelessness, Reports irritability, Reports anhedonia, Reports panic attacks and Reports suicidal ideation (denies) Endocrine: Reports fatigue Diagnostics Vital Signs (24Hr): Vital Signs - 24 hr 07/17/20 16:27 Pulse Rate 81 Respiratory Rate 16 Blood Pressure 119/85 Pulse Oximetry 95 Body Mass Index 26.8 Labs Results: 07/05/20 13:52 07/05/20 13:52 Medications Medications Current Medications Generic Name Dose Route Start Last Admin Trade Name Freq PRN Reason Stop Dose Admin Acetaminophen 650 mg 07/06/20 16:24 Acetaminophen 325 Mg Tablet PO Q6H PRN Headache/Pain Mild Scale (1-3) Al Hydroxide/Mg Hydroxide 30 ml 07/06/20 16:24 Magnesium Hydrox/Alum Hydrox 30 Ml Oral.Susp PO Q6H PRN Heartburn/Nausea Amlodipine Besylate 5 mg 07/08/20 17:00 07/17/20 16:27 Amlodipine Besylate 5 Mg Tablet PO 5 mg 1700 MARTY Administration Protocol Aspirin 81 mg 07/06/20 09:00 07/18/20 09:14 Aspirin 81 Mg Tab.Chew PO 81 mg DAILY MARTY Administration Lorazepam 0.5 mg 07/12/20 15:00 07/18/20 09:14 Lorazepam 0.5 Mg Tablet PO 0.5 mg TID MARTY Administration Lorazepam 0.5 mg 07/12/20 12:28 Lorazepam 0.5 Mg Tablet PO Q8H PRN Anxiety Magnesium Hydroxide 30 ml 07/06/20 16:24 Milk Of Magnesia 30 Ml Oral.Susp PO DAILY PRN Constipation Paroxetine HCl 10 mg 07/08/20 09:00 07/18/20 09:14 Paroxetine Hcl 10 Mg Tablet PO 10 mg DAILY MARTY Administration Trazodone HCl 25 mg 07/16/20 15:22 07/17/20 19:58 Trazodone Hcl 25 Mg Halftab PO 25 mg BEDTIME PRN Administration Insomnia Vitamin D 10 mcg 07/05/20 21:00 07/18/20 09:14 Cholecalciferol (Vitamin D3) 10 Mcg Tablet PO 10 mcg BID MARTY Administration Allergies Allergies Allergy/AdvReac Type Severity Reaction Status Date / Time Penicillins AdvReac Rash Verified 06/23/20 03:59 Assessment & Plan Assessment & Plan (1) Generalized anxiety disorder: Status: Acute Code(s): F41.1 - Generalized anxiety disorder Assessment and Plan: Reports an increase in sx. Lorazepam 0.5 mg tid and 0.5 mg q 8 hours prn-short term to manage sx-pt finds this to be more effective. Symptoms appear to have a strong situational component. Pt is beginning to re- negotiate with her son living at home (2) Recurrent major depression-severe: Status: Acute Code(s): F33.2 - Major depressive disorder, recurrent severe without psychotic features Assessment and Plan: Continue per treatment team: Paxil 10 mg daily. Hx of use since 2006-severe withdrawal when I met pt in the ER. Will taper when sx are improved, slowly-this may need to wait until pt is working with OP team. Pt reports regime to be ineffective. Discontinue Remeron. Remeron 7.5 mg HS for two nights then 3.75 mg HS for two nights then discontinue. Discontinue Risperdal Trazodone 25 mg HS prn Lexapro 5 mg am Ability 2 mg am MOCA=07/09/20. (3) HTN (hypertension): Status: Acute Code(s): I10 - Essential (primary) hypertension Assessment and Plan: -Increase of Amlodipine to 5 mg daily--07/10 128/72 132/76 07/11 119/73, 144/69 141/73 07/12 122/62 07/14 152/71 07/15 153/71 07/16 133/63 Continue to monitor. Greater than 50% of the session was spent on counseling and/or coordination of care Reason for contiued inpatient stay Substantial Risk for: harm to self
[2020-07-18 16:58] VITALS: BP 130/73; PULSE 77
[2020-07-18] MEDS: amLODIPine Besylate 5 MG TABLET PO (16:58)
[2020-07-18 18:00] VITALS: BP 128/60; PULSE 68; RESP 14; TEMP 36.3; O2SAT 98
[2020-07-18] MEDS: traZODone HCL 25 MG HALFTAB PO (20:27)
[2020-07-19] MEDS: PARoxetine HCL 10 MG TABLET PO (08:06)
[2020-07-19] MEDS: Aspirin 81 MG TAB.CHEW PO (08:06)
[2020-07-19] MEDS: Cholecalciferol (Vitamin D3) 10 MCG TABLET PO ×2 (08:06→21:09)
[2020-07-19] MEDS: LORazepam 0.5 MG TABLET PO ×3 (08:06→21:09)
[2020-07-19 16:16] VITALS: BP 141/71; PULSE 73
[2020-07-19] MEDS: amLODIPine Besylate 5 MG TABLET PO (16:16)
[2020-07-19 18:00] VITALS: BP 147/70; PULSE 63; TEMP 35.1; O2SAT 96
[2020-07-19] MEDS: traZODone HCL 25 MG HALFTAB PO (21:20)
--- NOTE | 2020-07-19 22:02 | HO.PSYCHPN ---
Subjective Subjective Date of Service: 07/19/20 Reason For Visit: med reaction? Subjective Notes: Conditional Voluntary Interim History: PATIENT ANXIOUS BUT IMPROVED ANXIOUS REGARDING ANY MEDICATION CHANGES HISTORY OF STRONG ANXIETY in relation to med changes wishes to stay on 10 mg paxil Medication Compliance: Intermittent Mental Status Exam Mental Status Exam Patient Appearance: Appropriate Patient Orientation: Person, Place, Time and Situation Level of Consciousness: Awake and Alert Patient Behavior: Appropriate, Dependent, Talkative, Cooperative, Anxious, Fatigued, Distractible and Good Eye Contact Mood Description: Depressed and Anxious Affect Description: Depressed and Anxious Patient Cognition Impaired: No Ability to Follow Directions: Good Speech Pattern: Perseverating and Spontaneous Speech Memory Description: Intact Hallucinations: None Delusions: Not Present Thought Process: Rumination Thought Content: positive for Perseveration Depressive Symptoms: Increased Anxiety, Diff. Making Decisions, Difficulty Sleeping, Increased Fatigue and Difficulty Concentrating Judgement: Fair Diagnostics Vital Signs (24Hr): Vital Signs - 24 hr 07/19/20 16:16 07/19/20 18:00 Temperature 95.2 F L Pulse Rate 73 63 Blood Pressure 141/71 H 147/70 H Pulse Oximetry 96 Body Mass Index 26.8 Labs Results: 07/05/20 13:52 07/05/20 13:52 Medications Medications Current Medications Generic Name Dose Route Start Last Admin Trade Name Freq PRN Reason Stop Dose Admin Acetaminophen 650 mg 07/06/20 16:24 Acetaminophen 325 Mg Tablet PO Q6H PRN Headache/Pain Mild Scale (1-3) Al Hydroxide/Mg Hydroxide 30 ml 07/06/20 16:24 Magnesium Hydrox/Alum Hydrox 30 Ml Oral.Susp PO Q6H PRN Heartburn/Nausea Amlodipine Besylate 5 mg 07/08/20 17:00 07/19/20 16:16 Amlodipine Besylate 5 Mg Tablet PO 5 mg 1700 MARTY Administration Protocol Aspirin 81 mg 07/06/20 09:00 07/19/20 08:06 Aspirin 81 Mg Tab.Chew PO 81 mg DAILY MARTY Administration Lorazepam 0.5 mg 07/12/20 15:00 07/19/20 21:09 Lorazepam 0.5 Mg Tablet PO 0.5 mg TID MARTY Administration Lorazepam 0.5 mg 07/12/20 12:28 Lorazepam 0.5 Mg Tablet PO Q8H PRN Anxiety Magnesium Hydroxide 30 ml 07/06/20 16:24 Milk Of Magnesia 30 Ml Oral.Susp PO DAILY PRN Constipation Paroxetine HCl 10 mg 07/08/20 09:00 07/19/20 08:06 Paroxetine Hcl 10 Mg Tablet PO 10 mg DAILY MARTY Administration Trazodone HCl 25 mg 07/16/20 15:22 07/19/20 21:20 Trazodone Hcl 25 Mg Halftab PO 25 mg BEDTIME PRN Administration Insomnia Vitamin D 10 mcg 07/05/20 21:00 07/19/20 21:09 Cholecalciferol (Vitamin D3) 10 Mcg Tablet PO 10 mcg BID MARTY Administration Allergies Allergies Allergy/AdvReac Type Severity Reaction Status Date / Time Penicillins AdvReac Rash Verified 06/23/20 03:59 Assessment & Plan Assessment & Plan (1) Generalized anxiety disorder: Status: Acute Code(s): F41.1 - Generalized anxiety disorder Assessment and Plan: improved (2) Recurrent major depression-severe: Status: Acute Code(s): F33.2 - Major depressive disorder, recurrent severe without psychotic features Assessment and Plan: Continue Paxil 10 mg mood improved patient wishes to continue treatment outpatient no self-harming thoughts feels more stable (3) HTN (hypertension): Status: Acute Code(s): I10 - Essential (primary) hypertension Assessment and Plan: -Increase of Amlodipine to 5 mg daily--07/10 128/72 132/76 5 119/73, 144/69 141/73 10 122/62 07/14 152/71 07/15 153/71 14 133/63 Continue to monitor. Greater than 50% of the session was spent on counseling and/or coordination of care Reason for contiued inpatient stay Substantial Risk for: rapid decompensation
[2020-07-20] MEDS: PARoxetine HCL 10 MG TABLET PO (08:37)
[2020-07-20] MEDS: Aspirin 81 MG TAB.CHEW PO (08:37)
[2020-07-20] MEDS: LORazepam 0.5 MG TABLET PO ×3 (08:37→19:58)
[2020-07-20] MEDS: Cholecalciferol (Vitamin D3) 10 MCG TABLET PO ×2 (08:37→19:58)
[2020-07-20 16:14] VITALS: BP 149/90; PULSE 82; TEMP 36.4; O2SAT 96
[2020-07-20] MEDS: ARIPiprazole 2 MG TABLET PO (16:20)
[2020-07-20 16:21] VITALS: BP 149/90
[2020-07-20] MEDS: amLODIPine Besylate 5 MG TABLET PO (16:21)
[2020-07-20] MEDS: traZODone HCL 25 MG HALFTAB PO (19:58)
--- NOTE | 2020-07-20 22:25 | HO.PSYCHPN ---
Subjective Subjective Date of Service: 07/20/20 Reason For Visit: depression anxiety med reaction Subjective Notes: Conditional Voluntary Interim History: Patient somewhat withdrawn anxious and dysphoric. Questioning her decision to not try any medication further. Take willing to take Abilify 2 mg get will for discharge tomorrow can continue with low-dose Abilify as an outpatient. She was in therapy with Jennifer Orozco in the past outpatient Medication Compliance: Yes Mental Status Exam Mental Status Exam Patient Appearance: Appropriate Patient Orientation: Person, Place, Time and Situation Level of Consciousness: Awake and Alert Patient Behavior: Appropriate, Dependent, Talkative, Cooperative, Anxious, Fatigued, Distractible and Good Eye Contact Mood Description: Depressed and Anxious Affect Description: Depressed and Anxious Patient Cognition Impaired: No Ability to Follow Directions: Good Speech Pattern: Perseverating and Spontaneous Speech Memory Description: Intact Hallucinations: None Delusions: Not Present Thought Process: Rumination Thought Content: positive for Perseveration Depressive Symptoms: Increased Anxiety, Diff. Making Decisions, Difficulty Sleeping, Increased Fatigue and Difficulty Concentrating Judgement: Fair Diagnostics Vital Signs (24Hr): Vital Signs - 24 hr 07/20/20 16:14 07/20/20 16:21 Temperature 97.5 F Pulse Rate 82 Blood Pressure 149/90 H 149/90 H Pulse Oximetry 96 Body Mass Index 26.8 Labs Results: 07/05/20 13:52 07/05/20 13:52 Medications Medications Current Medications Generic Name Dose Route Start Last Admin Trade Name Freq PRN Reason Stop Dose Admin Acetaminophen 650 mg 07/06/20 16:24 Acetaminophen 325 Mg Tablet PO Q6H PRN Headache/Pain Mild Scale (1-3) Al Hydroxide/Mg Hydroxide 30 ml 07/06/20 16:24 Magnesium Hydrox/Alum Hydrox 30 Ml Oral.Susp PO Q6H PRN Heartburn/Nausea Amlodipine Besylate 5 mg 07/08/20 17:00 07/20/20 16:21 Amlodipine Besylate 5 Mg Tablet PO 5 mg 1700 MARTY Administration Protocol Aripiprazole 2 mg 07/20/20 15:55 07/20/20 16:20 Aripiprazole 2 Mg Tablet PO 2 mg DAILY MARTY Administration Aspirin 81 mg 07/06/20 09:00 07/20/20 08:37 Aspirin 81 Mg Tab.Chew PO 81 mg DAILY MARTY Administration Lorazepam 0.5 mg 07/12/20 15:00 07/20/20 19:58 Lorazepam 0.5 Mg Tablet PO 0.5 mg TID MARTY Administration Lorazepam 0.5 mg 07/12/20 12:28 Lorazepam 0.5 Mg Tablet PO Q8H PRN Anxiety Magnesium Hydroxide 30 ml 07/06/20 16:24 Milk Of Magnesia 30 Ml Oral.Susp PO DAILY PRN Constipation Paroxetine HCl 10 mg 07/08/20 09:00 07/20/20 08:37 Paroxetine Hcl 10 Mg Tablet PO 10 mg DAILY MARTY Administration Trazodone HCl 25 mg 07/16/20 15:22 07/20/20 19:58 Trazodone Hcl 25 Mg Halftab PO 25 mg BEDTIME PRN Administration Insomnia Vitamin D 10 mcg 07/05/20 21:00 07/20/20 19:58 Cholecalciferol (Vitamin D3) 10 Mcg Tablet PO 10 mcg BID MARTY Administration Allergies Allergies Allergy/AdvReac Type Severity Reaction Status Date / Time Penicillins AdvReac Rash Verified 06/23/20 03:59 Assessment & Plan Assessment & Plan (1) Generalized anxiety disorder: Status: Acute Code(s): F41.1 - Generalized anxiety disorder Assessment and Plan: cont paxil (2) Recurrent major depression-severe: Status: Acute Code(s): F33.2 - Major depressive disorder, recurrent severe without psychotic features Assessment and Plan: Continue Paxil 10 mg mood improved patient wishes to continue treatment outpatient no self-harming thoughts feels more stable later changed her mind trial 2 mg abilify d/c 07/21/20 (3) HTN (hypertension): Status: Acute Code(s): I10 - Essential (primary) hypertension Assessment and Plan: -Increase of Amlodipine to 5 mg daily--07/10 128/72 132/76 5/9 119/73, 144/69 141/73 5/10 122/62 5/12 152/71 5/13 153/71 14 133/63 Continue to monitor. Greater than 50% of the session was spent on counseling and/or coordination of care Reason for contiued inpatient stay Substantial Risk for: inability to function and rapid decompensation
[2020-07-21 06:00] VITALS: BP 123/60; PULSE 69; RESP 18; TEMP 35.2; O2SAT 96
[2020-07-21] MEDS: Cholecalciferol (Vitamin D3) 10 MCG TABLET PO (08:11)
[2020-07-21] MEDS: Aspirin 81 MG TAB.CHEW PO (08:11)
[2020-07-21] MEDS: PARoxetine HCL 10 MG TABLET PO (08:11)
[2020-07-21] MEDS: LORazepam 0.5 MG TABLET PO (08:11)
[2020-07-21] MEDS: ARIPiprazole 2 MG TABLET PO (09:28)
--- NOTE | 2020-07-21 11:15 | PM.PSYDC ---
DS: Providers Provider Date of Service: 07/21/20 Date of admission: 07/06/20 15:51 Primary care physician: Jessica Crawford MD DS: Diagnosis Discharge Diagnosis (1) Generalized anxiety disorder: Status: Acute (2) Recurrent major depression-severe: Status: Acute (3) HTN (hypertension): Status: Acute DS: Medications Discharge Medications Home Medications: Home Medications Medication Instructions Recorded Confirmed aspirin 81 mg PO DAILY 06/23/20 07/05/20 Previous Rx's Medication Instructions Recorded amlodipine 5 mg PO DAILY 30 Days #30 tab 07/21/20 aripiprazole [Abilify] 2 mg PO DAILY 30 Days #30 tab 07/21/20 cholecalciferol (vitamin D3) 10 mcg PO BID 30 Days #60 tab 07/21/20 [Vitamin D3] lorazepam 0.5 mg PO TID 15 Days #50 tab 07/21/20 paroxetine HCl 10 mg PO DAILY 30 Days #30 tab 07/21/20 trazodone 25 mg PO BEDTIME 30 Days #30 tab 07/21/20 Discharge Plan Discharge Patient Disposition: Home, Self-Care Discharge Diagnosis: major depression recurrent generalized anxiety hypertension Referrals: Ellen Doe (therapist) [Other] - 07/22/20 10:00 am (Telehealth appointment) Ute Morse (psychiatrist) [Other] - 08/16/20 9:40 am (Telehealth appointment) Ute Morse (psychiatrist) [Other] - 09/13/20 9:20 am (Telehealth appointment) [facility] (for son) [Other] (Call any of the agencies above to get on a waitlist for therapy and psychiatry appointments) Wes Lopez MD [Physician] - 5 days (For barium swallow study) Jessica Crawford MD [Primary Care Provider] - 1 Week Discharge Medications: New paroxetine HCl 10 mg Tablet 10 mg PO DAILY 30 Days Qty: 30 RF: 0 lorazepam 0.5 mg Tablet 0.5 mg PO TID 15 Days Qty: 50 RF: 1 aripiprazole [Abilify] 2 mg Tablet 2 mg PO DAILY 30 Days Qty: 30 RF: 0 amlodipine 5 mg tablet 5 mg PO DAILY 30 Days Qty: 30 RF: 0 Continued aspirin 81 mg Tablet,Chewable 81 mg PO DAILY RF: 0 trazodone 50 mg Tablet 25 mg PO BEDTIME 30 Days Qty: 30 RF: 0 cholecalciferol (vitamin D3) [Vitamin D3] 10 mcg (400 unit) Tablet 10 mcg PO BID 30 Days Qty: 60 RF: 0 Discontinued amlodipine 2.5 mg Tablet 2.5 mg PO DAILY@1700 RF: 0 fluoxetine 10 mg Capsule 10 mg PO DAILY RF: 0 Discharge Orders: Discharge Order (Routine); Ordered 07/21/20 Ordered By: Margarito Mercado Diet: advance to usual diet Activity on Discharge: As tolerated Stand Alone Forms: Patient Portal Discharge page, Community Support Care Plan Goals: improved anxiety less depressed better stress tolerance no self harm Health Concerns: major depression generalized anxiety hypertension Plan of Treatment: medication abilify paxil therapy return to your pcp elder services Assessment: improved Discharge Date/Time: 07/21/20 11:10 Mental Status Exam Mental Status Exam Patient Appearance: Appropriate Patient Orientation: Person, Place, Time and Situation Level of Consciousness: Awake and Alert Patient Behavior: Appropriate, Dependent, Talkative, Cooperative, Anxious, Fatigued, Distractible and Good Eye Contact Mood Description: Depressed and Anxious Affect Description: Anxious Patient Cognition Impaired: No Ability to Follow Directions: Good Speech Pattern: Spontaneous Speech Memory Description: Intact Hallucinations: None Delusions: Not Present Thought Process: Rumination Thought Content: positive for Perseveration Depressive Symptoms: Increased Anxiety, Diff. Making Decisions, Difficulty Sleeping, Increased Fatigue and Difficulty Concentrating Judgement: Fair DS: Summary Hospital Course Hospital Course: Chief Complaint: med reaction? Sources of Information: patient interviewed and chart reviewed HPI Subjective Notes: Conditional Voluntary Narrative: 65 yo female, [facility] had a medication change from Paxil to Prozac, hx of anxiety, depression, presents with increase of sx of depression, anxiety, SI, fatigue, anergia, amotivation with SI-plans to OD or jump into the river. Reports since med change sx have become worse. Reports Paxil 30 mg since 2006 with three day taper and transition to Prozac while at [facility] Since discharge son reports pt needs ambulation assistance, using a walker now and has lost functioning. Paxil re-started 07/05. Pt is experiencing less SE, is walking without a walker. Reports her home situaiton is difficult-son has issues with anger and alcohol, making it fearful for her to live there. She hopes we can find her a place to live. Past Psychiatric History: IP: Denies OP: PCP prescribes. No therapist Respite: 06/24-06/28/20 with [facility] Trials: Paxil, Trazodone, Prozac Medical Evaluation Reviewed: Yes [facility] Medical History Anxiety Depression Generalized anxiety disorder Gum disease HTN (hypertension) Mass of breast Recurrent major depression-severe Family History: Mental Health issues on both sides. Alcoholism on mother's side of the family Social History: Lives with her son Trauma History: Not discussed Diagnostics Vital Signs (24Hr):Vital Signs - 24 hr 07/06/20 18:30 07/06/20 18:58 07/07/20 06:00 Temperature 97.4 F 98.4 F Pulse Rate 98 98 89 Respiratory Rate 16 Blood Pressure 134/64 134/64 145/74 H Pulse Oximetry 98 07/07/20 16:40 07/07/20 16:44 Temperature 97.8 F Pulse Rate 94 Respiratory Rate Blood Pressure 165/84 H Pulse Oximetry 97 Body Mass Index 25.8 Labs Results: 07/05/20 13:52 document embedded image 07/05/20 13:52 document embedded image Meds/Allergies Meds Home Medications Acetaminophen (Acetaminophen 325 Mg Tablet) 650 mg PO Q6H PRN PRN Reason: Headache/Pain Mild Scale (1-3) Al Hydroxide/Mg Hydroxide (Magnesium Hydrox/Alum Hydrox 30 Ml Oral.Susp) 30 ml PO Q6H PRN PRN Reason: Heartburn/Nausea Amlodipine Besylate (Amlodipine Besylate 2.5 Mg Tablet) 2.5 mg PO DAILY@1700 [facility]; Protocol Last Admin: 07/07/20 16:40 Dose: 2.5 mg Documented by: Aspirin (Aspirin 81 Mg Tab.Chew) 81 mg PO DAILY [facility] Last Admin: 07/07/20 09:16 Dose: 81 mg Documented by: Hydroxyzine HCl (Hydroxyzine Hcl 25 Mg Tablet) 25 mg PO BEDTIME PRN PRN Reason: Anxiety Lorazepam (Lorazepam 1 Mg Tablet) 1 mg PO Q4H PRN PRN Reason: Anxiety Magnesium Hydroxide (Milk Of Magnesia 30 Ml Oral.Susp) 30 ml PO DAILY PRN PRN Reason: Constipation Paroxetine HCl (Paroxetine Hcl 10 Mg Tablet) 10 mg PO DAILY [facility] Trazodone HCl (Trazodone Hcl 25 Mg Halftab) 25 mg PO BEDTIME [facility] Last Admin: 07/06/20 20:05 Dose: 25 mg Documented by: Vitamin D (Cholecalciferol (Vitamin D3) 10 Mcg Tablet) 10 mcg PO BID [facility] Last Admin: 07/07/20 09:16 Dose: 10 mcg Documented by: Allergies Allergies Allergy/AdvReac Type Severity Reaction Status Date / Time Penicillins AdvReac Rash Verified 06/23/20 03:59 Mental Status Exam Mental Status Exam Patient Appearance: Appropriate Patient Orientation: Person, Place, Time and Situation Level of Consciousness: Awake and Alert Patient Behavior: Guarded, Talkative and Anxious Mood Description: Depressed and Anxious Affect Description: Flat Patient Cognition Impaired: No Ability to Follow Directions: Good Speech Pattern: Perseverating, Spontaneous Speech and Soft-Spoken Hallucinations: None Delusions: Not Present Thought Process: Rumination Thought Content: positive for Perseveration Depressive Symptoms: Increased Anxiety Judgement: Fair Assessment & Plan Assessment & Plan (1) Generalized anxiety disorder: Status: Acute Code(s): F41.1 - Generalized anxiety disorder Assessment and Plan: Pt currently very fearful of her living situation. States regime was helping until she went home to manage the stress of her son. Will re-titrate Paxil and taper when pt has some relief from regime. (2) Recurrent major depression-severe: Status: Acute Code(s): F33.2 - Major depressive disorder, recurrent severe without psychotic features Assessment and Plan: Increase Paxil to 10 mg daily. Continue Prozac/Trazodone Patient educated on: medication risk/benefits and therapeutic strategies Informed Consent: understands and further education needed Reason for continued inpatient stay Substantial Risk for: harm to self, inability to function and rapid decompensation Her please see above for psychiatric admission note Hospital course Patient was admitted with severe anxiety rumination fear regarding her son. Patient was in isolated ruminating difficulty with his sleep recurrent anxiety and obsessional thinking had a great deal of anxiety regarding medication and any medication changes. She is not currently in counseling had seen Simi Benavides in the past for number of years. Patient was tried on prozac and mirtazapine. She had severe anxiety rumination with any medication changes. She had been stable Paxil for number of years was quite obsessional regarding any medication changes. Eventually the patient was most comfortable with continuing Paxil and mentally was most reassured with 10 mg. He continued to be somewhat dysphoric ruminating eventually was agreeable to trying low-dose Abilify for augmentation to mg. We did recommend [facility] Patient was agreeable to being seen in outpatient counseling Time Spent with Patient Time attestation: Total time spent providing and/or coordinating discharge services:
== END 2020-07-21 11:10 | disposition home or self-care (01) | DRG 751 ==
LOC: HO.ED 07-06 02:01 → HO.PM5 07-06 16:07
PROVIDERS: Physician Assistant; Admitting Provider Clinical Nurse Specialist Psychiatric/Mental Health, Adult; Emergency Provider Emergency Medicine; PCP Internal Medicine; Visit Provider Clinical Nurse Specialist Psychiatric/Mental Health, Adult
DX: F33.2 Major depressive disorder, recurrent severe without psychotic features (principal); R45.851 Suicidal ideations; F41.1 Generalized anxiety disorder; I10 Essential (primary) hypertension; Z20.822 Contact with and (suspected) exposure to COVID-19; Z79.82 Long term (current) use of aspirin; Z88.0 Allergy status to penicillin; Z79.899 Other long term (current) drug therapy
CPT/HCPCS: 36415; 80048; 80061; 80076; 80307; 81003; 82607; 82746; 82947; 83036; 83735; 84443; 85025; 87635; 93005; 99285

== ENCOUNTER 2020-08-24 08:36 | Outpatient (REF) | payer OTHER, SELFPAY ==
--- NOTE | ~2020-08-24 | FL_ITS ---
EXAMINATION: FL BARIUM SWALLOW CLINICAL INFORMATION: Dysphagia. COMPARISON: None. TECHNIQUE: Barium swallow examination is performed using fluoroscopic evaluation in addition to multiple fluoroscopic spot views. The patient is imaged both upright and prone and using both thick and thin sulfate along with effervescent granules. Fluoroscopy time: 1.5 minutes DAP: 11.359 Gy-cm2 Images: 39 FINDINGS: Following oral administration of thick and thin barium and barium-coated turkey, there is normal propagation of bolus from the oral cavity through the pharynx and esophagus and into the stomach without any evidence of obstruction, narrowing or stricture. No reflux visualized. No hiatal hernia noted. There is mild ventral spondylosis C4-C5 and C5-C6 disc levels indenting the posterior cervical esophageal wall. FL/FL barium swallow IMPRESSION: Mild ventral spondylosis C4-C5 and C5-C6 disc levels indenting ventral cervical esophageal wall. No obstructing or constricting lesions seen. There is no gastroesophageal reflux or hiatal hernia.
== END 2020-08-24 08:37 | disposition home or self-care (01) ==
LOC: HO.XRAY 08:36
PROVIDERS: PCP Internal Medicine; Visit Provider Physician Assistant
DX: R19.8 Other specified symptoms and signs involving the digestive system and abdomen (principal)
CPT/HCPCS: 74220

== ENCOUNTER 2021-08-12 07:41 | Outpatient (REF) | payer MEDICARE, MEDICAID, SELFPAY ==
[2021-08-12 08:27] LABS: Estimated Average Glucose 103 mg/dL; Hemoglobin A1c % 5.2 %
[2021-08-12 08:44] LABS: Cholesterol 183 mg/dL; HDL Cholesterol 52 mg/dL; LDL Cholesterol Calculated 115 mg/dl; Triglycerides 84 mg/dL
== END 2021-08-12 07:42 | disposition home or self-care (01) ==
LOC: HO.LAB 07:41
PROVIDERS: PCP Internal Medicine; Visit Provider Registered Nurse
DX: Z79.899 Other long term (current) drug therapy (principal)
CPT/HCPCS: 36415; 80061; 83036

== ENCOUNTER 2022-10-31 08:02 | Outpatient (REF) | payer MEDICARE, MEDICAID, SELFPAY | END 2022-10-31 08:03 | disposition home or self-care (01) | LOC: HO.LAB 08:02 | PROVIDERS: Visit Provider Registered Nurse | DX: Z13.89 Encounter for screening for other disorder (principal) ==

== ENCOUNTER 2022-11-02 06:12 | Outpatient (REF) | payer MEDICARE, MEDICAID, SELFPAY ==
[2022-11-02 07:12] LABS: Estimated Average Glucose 100 mg/dL; Hemoglobin A1c % 5.1 % (<6.0)
[2022-11-02 07:23] LABS: Cholesterol 194 mg/dL (<200); HDL Cholesterol 56 mg/dL (>40); LDL Cholesterol Calculated 119 mg/dL (<100); Triglycerides 95 mg/dL (<150)
== END 2022-11-02 06:13 | disposition home or self-care (01) ==
LOC: HO.LAB 06:12
PROVIDERS: PCP Internal Medicine; Visit Provider Registered Nurse
DX: F34.1 Dysthymic disorder (principal); F41.1 Generalized anxiety disorder; Z79.899 Other long term (current) drug therapy
CPT/HCPCS: 36415; 80061; 83036